=== PATIENT | female | born 1980 | race Caucasian/White ===

== ENCOUNTER → 2020-07-30 13:17 | Outpatient (BNVA) | payer OTHER, SELFPAY | PROVIDERS: PCP Physician Assistant; Referring Provider Physician Assistant; Visit Provider Internal Medicine | DX: E21.3 Hyperparathyroidism, unspecified (principal); E04.2 Nontoxic multinodular goiter; E55.9 Vitamin D deficiency, unspecified; Z79.899 Other long term (current) drug therapy; Z91.14 Patient's other noncompliance with medication regimen | CPT/HCPCS: 99214 ==

== ENCOUNTER 2020-08-02 15:18 | Outpatient (REF) | payer OTHER, SELFPAY ==
[2020-08-02 16:17] LABS: Calcium 9.2 mg/dL (8.4-10.2)
[2020-08-02 16:43] LABS: Free T4 (Free Thyroxine) 0.97 ng/dL (0.71-1.85); Vitamin D 25-OH Total 17.6 ng/mL (>30)
[2020-08-03 20:11] LABS: Calcium (PTHI) 9.2 mg/dL (8.6-10.2); PTHI 83 pg/mL (14-64)
[2020-08-06 10:26] LABS: Calcium, Ionized 5.2 mg/dL (4.8-5.6)
== END 2020-08-02 15:19 | disposition home or self-care (01) ==
LOC: HO.LAB 15:18
PROVIDERS: PCP Physician Assistant; Visit Provider Internal Medicine
DX: E21.3 Hyperparathyroidism, unspecified (principal)
CPT/HCPCS: 82040; 82306; 82310; 82330; 83970; 84439; 84443

== ENCOUNTER 2020-09-06 13:50 | Outpatient (REF) | payer OTHER, SELFPAY ==
--- NOTE | 2020-09-06 13:58 | MM_ITS ---
EXAMINATION: BONE DENSITOMETRY CLINICAL INDICATION: Hyperparathyroidism. COMPARISON: This is the patient's baseline examination. TECHNIQUE: Using a [employer] DXA System (software version: 13.1) manufactured by [employer], dual-energy x-ray absorptiometry was performed of the lumbar spine, left hip, and left forearm radius 33%. The images are of good technical quality. Based on ISCD (International Society for Clinical Densitometry) standards of reporting, Z-scores instead of T-scores are reported in this premenopausal woman. Summary results are attached. FINDINGS: AP SPINE L1-L4: BMD 1.266 g/cm2, T-score 0.7, Z-score -0.4, Z-score within expected range for age. LEFT FEMUR, NECK: BMD 0.942 g/cm2, T-score -0.7, Z-score -1.0, Z-score within expected range for age. LEFT FEMUR, TOTAL: BMD 1.141 g/cm2, T-score 1.1, Z-score 0.5, Z-score within expected range for age. LEFT FOREARM RADIUS 33%: BMD 0.910 g/cm2, T-score 0.4, Z-score 0.4, Z-score within expected range for age. IDENTIFIED RISK FACTORS: Hyperparathyroid, family history (parent hip fracture), hyperthyroid, recurrent falls, rheumatoid arthritis, secondary osteoporosis. HISTORY OF FRACTURE: None listed. MEDICATIONS: Vitamin D. MM/XR DEXA appendicular skeleton IMPRESSION: 1. DIAGNOSIS: Based on the lowest Z-score value of -1.0 in the femoral neck, the patient's bone density is borderline osteopenia the expected range for age. 2. 10-YEAR FRACTURE RISK PREDICTION, FRAX: Major osteoporotic fracture (clinical spine, forearm, hip or shoulder) 5.0%. Hip fracture 0.1%. 3. Treatment Recommendations: NOF guidelines recommend consideration for treatment in postmenopausal women and men age 50 and older presenting with the following: -A hip or vertebral (clinical or morphometric) fracture. -T-score less than or equal to -2.5 at the femoral neck or spine after appropriate evaluation to exclude secondary causes. -Low bone mass at the hip or spine and a 10-year fracture probability by FRAX of greater than or equal to 3% for hip fracture or greater than or equal to 20% for major osteoporotic fracture based on the [place] adapted WHO algorithm. 4. Other Recommendations: All treatment decisions require clinical judgment and consideration of individual patient factors, including patient preferences, comorbidities, previous drug use, risk factors not captured in the FRAX model (e.g. frailty, falls, vitamin D deficiency, increased bone turnover, interval significant decline in bone density) and possible under or overestimation of fracture risk by FRAX. FUTURE SCAN RECOMMENDATION: People with diagnosed cases of osteoporosis or at high risk for fracture should have regular bone mineral density tests. For patients eligible for Medicare, routine testing is allowed once every 2 years. The testing frequency can be increased to one year for patients who have rapidly progressing disease, those who are receiving or discontinuing medical therapy to restore bone mass, or have additional risk factors.
== END 2020-09-06 13:51 | disposition home or self-care (01) ==
LOC: HO.MAMMO 13:50
PROVIDERS: Visit Provider Internal Medicine
DX: E21.3 Hyperparathyroidism, unspecified (principal)
CPT/HCPCS: 77081

== ENCOUNTER 2020-10-04 09:06 | Outpatient (REF) | payer OTHER, SELFPAY ==
--- NOTE | 2020-10-04 10:03 | PM.OP ---
Brief Operative Note Date of Service: 10/04/20 Surgeon: Vanessa Lara, DO This is doctor Vanessa Lara. This is an ultrasound-guided fine-needle aspiration report. Patient name: Sherry Patel : 1980 Date of Examination: 10/04/2020 Referring Physician Is: Indication: Multinodular Thyroid Porcedure: Procedure was explained to the patient. Alternatives, the risk and benefits were discussed. Written consent was obtained. A time-out was also obtained. After sterile preparation, fine-needle aspiration of aRight Upper Pole 1.3 cm thyroid nodule was performed using direct ultrasound guidance to confirm accurate needle placement. Four aspirations were made using 27 gauge needles. Samples were submitted for cytology. One pass was dedicated for [employer] sequencing first front ventilator testing. Fine-needle aspiration of a Right mid pole 2.3 cm thyroid nodule was performed using direct ultrasound guidance to confirm accurate needle placement. Four aspirations were made using 27 gauge needles. Samples were submitted for cytology. One pass was dedicated for [employer] Gene sequencing first front ventilator testing. Fine-needle aspiration of a Left mid pole 1.7 cm thyroid nodule was performed using direct ultrasound guidance to confirm accurate needle placement. Six aspirations were made using 27 gauge needles. Samples were submitted for cytology. One pass was dedicated for [employer] Gene sequencing first front ventilator testing.The patient tolerated the procedure well. Aftercare instructions were provided. Impression: Uncomplicated fine needle aspiration biopsy of a Right upper pole 1.3 cm, Right mid pole 2.3 cm and a Left mid pole 1.7 cm thyroid nodule under ultrasound guideance. Estimated blood loss (mL): 0
[2020-10-04] MEDS: Lidocaine HCl 1 % MPF 5 ML VIAL SUBCUT (11:29)
== END 2020-10-04 09:07 | disposition home or self-care (01) ==
LOC: HO.US 09:06
PROVIDERS: Visit Provider Internal Medicine
DX: E04.2 Nontoxic multinodular goiter (principal)
CPT/HCPCS: 10005; 88172; 88173; 88177

== ENCOUNTER → 2020-10-25 09:46 | Outpatient (BNVA) | payer OTHER, SELFPAY | PROVIDERS: PCP Physician Assistant; Referring Provider Physician Assistant; Visit Provider Internal Medicine | DX: Z76.89 Persons encountering health services in other specified circumstances (principal) ==

== ENCOUNTER 2020-11-07 15:10 | Outpatient (REF) | payer OTHER, SELFPAY ==
[2020-11-08 10:32] LABS: BV Int Neg Control Negative (Negative); BV Int Pos Control Positive (Positive)
[2020-11-08 21:37] LABS: C. trachomatis RNA TMA NOT DETECTED (NOT DETECTED); N. gonorrhoeae RNA TMA NOT DETECTED (NOT DETECTED)
== END 2020-11-07 15:11 | disposition home or self-care (01) ==
LOC: HO.LAB 15:10
PROVIDERS: PCP Physician Assistant; Visit Provider Obstetrics & Gynecology
DX: R10.2 Pelvic and perineal pain (principal); N89.8 Other specified noninflammatory disorders of vagina; R31.29 Other microscopic hematuria
CPT/HCPCS: 81003; 81025; 87086; 87088; 87186; 87480; 87491; 87510; 87591; 87660; 99212

== ENCOUNTER 2020-11-22 13:34 | Outpatient (REF) | payer OTHER, SELFPAY ==
--- NOTE | 2020-11-22 13:40 | US_ITS ---
EXAMINATION: US SOFT TISSUE OF THE NECK CLINICAL INFORMATION: Bilateral neck pain/swelling. COMPARISON: Previous thyroid ultrasound most recent December 2019 and thyroid nodule fine-needle aspiration 1220. TECHNIQUE: Linear transducer grayscale and color Doppler examination of the right and left neck at level of thyroid. FINDINGS: No adenopathy, mass or fluid collection is seen. The thyroid gland is enlarged. There are multiple bilateral thyroid nodules. Dedicated thyroid ultrasound was not performed. US/US soft tiss head and/or neck IMPRESSION: No adenopathy, mass or fluid collection seen. Enlarged thyroid gland with multiple bilateral thyroid nodules. Dedicated thyroid ultrasound was not performed.
--- NOTE | 2020-11-22 13:40 | US_ITS ---
EXAMINATION: ULTRASOUND EXTREMITY NONVASCULAR CLINICAL INFORMATION: Lump in the right forearm. COMPARISON: None TECHNIQUE: Targeted sonographic evaluation in the right forearm at the region of concern. FINDINGS: There is no focal abnormality identified. No fluid collection or mass. US/US extremity nonvascular khan IMPRESSION: There is no focal abnormality seen in the right forearm.
--- NOTE | 2020-11-22 13:40 | US_ITS ---
EXAMINATION: ULTRASOUND EXTREMITY NONVASCULAR CLINICAL INFORMATION: Synovial cyst of the popliteal space of the right knee COMPARISON: None TECHNIQUE: Targeted sonographic evaluation of the right popliteal fossa. FINDINGS: There is no focal abnormality identified. No Camarillo's cyst. US/US extremity nonvascular khan IMPRESSION: No Camarillo's cyst.
--- NOTE | 2020-11-22 13:40 | US_ITS ---
EXAMINATION: ULTRASOUND PELVIC, COMPLETE CLINICAL INFORMATION: Pelvic pain COMPARISON: Pelvic ultrasound 01/04/2020 TECHNIQUE: Transabdominal and transvaginal imaging was performed. Transvaginal imaging was performed for further evaluation of the endometrium and adnexa. FINDINGS: The uterus is anteverted and is of normal size and echogenicity measuring 7.4 x 4.7 x 5.2 cm. The endometrium measures 0.8 cm. There is a small amount of fluid within the endometrium. The previously seen area of hyperechogenicity in the upper endometrium is no longer visualized. There are nabothian cysts. One of the cysts demonstrates internal debris. There is a 0.6 x 0.5 x 0.8 cm cyst in the upper left aspect of the uterus. Both ovaries are of normal size and echogenicity. The right ovary measures 2.8 x 2.3 x 1.5 cm for a volume of 5.1 mL. The left ovary measures 2.7 x 2.2 x 1.9 cm for a volume of 5.9 mL. There is no pelvic free fluid. US/US pelvic complete IMPRESSION: 1. Previously seen possible polyp as seen on the prior ultrasound is not visualized on the current study. 2. 0.8 cm cyst in the left upper aspect of the uterus. 3. Several nabothian cysts in the cervix, one of which is mildly complex and demonstrates internal echogenic debris. 4. Normal appearance of the bilateral ovaries.
== END 2020-11-22 13:35 | disposition home or self-care (01) ==
LOC: HO.US 13:34
PROVIDERS: PCP Physician Assistant; Visit Provider Physician Assistant
DX: R59.1 Generalized enlarged lymph nodes (principal); E04.2 Nontoxic multinodular goiter; R10.2 Pelvic and perineal pain; M71.21 Synovial cyst of popliteal space [Baker], right knee
CPT/HCPCS: 76536; 76830; 76856; 76882

== ENCOUNTER 2020-11-22 15:53 | Emergency (ER) | payer OTHER, SELFPAY ==
[2020-11-22 15:57] VITALS: BP 161/98; PULSE 59; RESP 20; TEMP 37.4; O2SAT 99; BMI 46.3
--- NOTE | 2020-11-22 16:01 | ECG_ITS ---
Test Reason : CP Blood Pressure : / mmHG Vent. Rate : 055 BPM Atrial Rate : 055 BPM P-R Int : 178 ms QRS Dur : 086 ms QT Int : 386 ms P-R-T Axes : 008 -01 008 degrees QTc Int : 369 ms Sinus bradycardia Otherwise normal ECG When compared with ECG of 11-AUG-2019 14:55, Nonspecific T wave abnormality, improved in Anterolateral leads Referred By: Generic ED Physician Electronically Signed By:Eliazar Chairez
--- NOTE | 2020-11-22 16:01 | XR_ITS ---
EXAMINATION: XR CHEST CLINICAL INFORMATION: Chest pain COMPARISON: Chest radiographs 08/11/2019, 11/13/2018 TECHNIQUE: Frontal view of the chest was obtained. FINDINGS: There is no pneumothorax, pleural reaction, airspace consolidation, or effusion. No groundglass opacity. The costophrenic sulci are clear. The heart is normal in size. The hilar and mediastinal contours and visualized bony structures are unremarkable. XR/XR chest 1V IMPRESSION: Unremarkable examination.
[2020-11-22 16:27] LABS: MANUAL DIFF FLAG NO
[2020-11-22 16:30] LABS: Basophils Percent Auto 0.2 % (0-2); Eosinophils Absolute Auto 0.1 X10*3/uL (0.0-0.4); Hematocrit 42.4 % (37-47); Hemoglobin 13.6 g/dl (12.0-16.0); Imm Gran Abs Auto 0.01 X10*3/uL (0.00-0.03); Imm Gran Pct Auto 0.1 % (0.0-0.4); Lymphocytes Absolute Auto 3.5 X10*3/uL (1.2-4.9); Lymphocytes Percent Auto 40.7 % (20-40); Mean Corpuscular HGB Conc 32.1 g/dl (31.0-35.0); Mean Corpuscular Hemoglobin 30.4 pg (27.0-33.0); Mean Corpuscular Volume 94.6 fL (80-98); Mean Platelet Volume 9.4 fL (9.4-12.3); Monocytes Absolute Auto 0.7 X10*3/uL (0.1-1.2); Monocytes Percent Auto 7.6 % (2-11); Neutrophils Absolute Auto 4.3 X10*3/uL (2.0-8.3); Neutrophils Percent Auto 50.4 % (45-73); Platelet Count 298 X10*3/uL (160-400); Red Blood Count 4.48 X10*6/uL (4.20-5.50); Red Cell Distribution Width 12.4 % (11.0-16.0); White Blood Count 8.6 X10*3/uL (4.8-10.8)
[2020-11-22 16:50] LABS: Anion Gap 12 (12-20); Blood Urea Nitrogen 12 mg/dL (9-16); Calcium 9.3 mg/dL (8.4-10.2); Carbon Dioxide 25 mmol/L (22-29); Chloride 106 mmol/L (96-108); Estimated Glomerular Filt Rate > 60; Glucose Random 86 mg/dL (60-115); Potassium 4.4 mmol/l (3.3-5.1); Sodium 139 mmol/L (135-145)
[2020-11-22 16:57] LABS: Troponin-I High Sensitivity < 3.5 ng/L (<3.5-17.0)
== END 2020-11-22 19:31 | disposition left against medical advice (07) ==
PROVIDERS: Emergency Provider Emergency Medicine; PCP Physician Assistant
DX: R07.9 Chest pain, unspecified (principal); E11.9 Type 2 diabetes mellitus without complications; I10 Essential (primary) hypertension
CPT/HCPCS: 36415; 71045; 80048; 84484; 85025; 93005; 99282; 99283

== ENCOUNTER → 2020-12-05 11:38 | Outpatient (BNVA) | payer OTHER, SELFPAY | PROVIDERS: Visit Provider Obstetrics & Gynecology ==

== ENCOUNTER 2021-01-09 14:50 | Outpatient (REF) | payer OTHER, SELFPAY ==
[2021-01-09 15:44] LABS: Albumin Level 4.1 g/dL (3.5-5.0); Calcium 9.9 mg/dL (8.4-10.2); Estimated Glomerular Filt Rate > 60; Phosphorus 3.7 mg/dL (2.7-4.5)
[2021-01-09 16:08] LABS: Free T4 (Free Thyroxine) 0.83 ng/dL (0.71-1.85)
[2021-01-09 16:09] LABS: Thyroid Stimulating Hormone 0.98 uIU/mL (0.32-4.0); Vitamin D 25-OH Total 21.9 ng/mL (>30)
[2021-01-10 10:13] LABS: CT PCR NOT DETECTED (Not Detect.); NG PCR NOT DETECTED (Not Detect.)
[2021-01-10 13:42] LABS: Calcium (PTHI) 10.2 mg/dL (8.6-10.2); PTHI 52 pg/mL (14-64)
== END 2021-01-09 14:51 | disposition home or self-care (01) ==
LOC: HO.LAB 14:50
PROVIDERS: Internal Medicine; Obstetrics & Gynecology; PCP Physician Assistant; Visit Provider Internal Medicine Endocrinology, Diabetes & Metabolism
DX: E21.3 Hyperparathyroidism, unspecified (principal); B37.3 Candidiasis of vulva and vagina; E04.2 Nontoxic multinodular goiter; E55.9 Vitamin D deficiency, unspecified
CPT/HCPCS: 36415; 82040; 82306; 82310; 82565; 83970; 84100; 84439; 84443; 87086; 87491; 87591

== ENCOUNTER → 2021-01-25 10:53 | Outpatient (BNVA) | payer OTHER, SELFPAY | PROVIDERS: PCP Physician Assistant; Visit Provider Internal Medicine ==

== ENCOUNTER 2021-04-17 12:04 | Outpatient (REF) | payer OTHER, SELFPAY ==
--- NOTE | ~2021-04-17 | XR_ITS ---
EXAMINATION: BILATERAL HAND. CLINICAL INFORMATION: Pain right hand. COMPARISON: None TECHNIQUE: 3 views each hand. FINDINGS: Right hand: There is no visible acute fracture, dislocation or subluxation seen. No bony erosive changes. The soft tissues are normal. Left hand: There is no visible acute fracture, dislocation or subluxation seen. No bony erosive changes or loose body seen. The soft tissues are normal. XR/XR hand LT min 3V IMPRESSION: Unremarkable left hand exam.
--- NOTE | ~2021-04-17 | XR_ITS ---
EXAMINATION: BILATERAL HAND. CLINICAL INFORMATION: Pain right hand. COMPARISON: None TECHNIQUE: 3 views each hand. FINDINGS: Right hand: There is no visible acute fracture, dislocation or subluxation seen. No bony erosive changes. The soft tissues are normal. Left hand: There is no visible acute fracture, dislocation or subluxation seen. No bony erosive changes or loose body seen. The soft tissues are normal. XR/XR hand RT min 3V IMPRESSION: Unremarkable left hand exam.
--- NOTE | ~2021-04-17 | US_ITS ---
EXAMINATION: US RETROPERITONEAL LIMITED (RENAL ONLY) CLINICAL INFORMATION: Hypertension. COMPARISON: None TECHNIQUE: Doppler color and grayscale evaluation of the kidneys and renal arteries including waveform spectral analysis. FINDINGS: RIGHT KIDNEY: 12.3 x 4.5 x 6.4 cm (SAG x AP x TRV). The kidney is normal in size, contour, and echogenicity. Renal cortical thickness is normal. No calculi or focal parenchymal lesions. No hydronephrosis. LEFT KIDNEY: 12.1 x 4.9 x 5.9 cm (SAG x AP x TRV). The kidney is normal in size, contour, and echogenicity. Renal cortical thickness is normal. No calculi or focal parenchymal lesions. No hydronephrosis. Mid abdominal aorta is normal in caliber. Peak systolic velocity is normal measuring 68 cm/s. The right proximal renal artery is patent and measures 158 cm/s. The mid right renal artery is not seen. The distal right renal artery is patent and peak systolic velocity is normal measuring 81 cm/s. Right renal artery to aorta ratio is normal measuring 2.3. Resistive indices in the segmental renal arteries in the right kidney are normal measuring 0.6 cm. The right renal vein is patent. Left the left proximal renal artery is patent. Peak systolic velocity measures 123 cm/s. Left mid renal artery is patent with peak systolic velocity measuring 78 cm/s. The left distal renal artery is not visualized. Left renal artery to aorta ratio is normal measuring 1.8. Resistive indices of the segmental renal arteries in the left kidney are normal measuring 0.6-0.7. The left renal artery is patent. US/US renal BI IMPRESSION: Normal-appearing kidneys. The right mid renal artery and left distal renal artery are not well visualized. No evidence of renal artery stenosis is seen.
--- NOTE | ~2021-04-17 | US_ITS ---
EXAMINATION: US RETROPERITONEAL LIMITED (RENAL ONLY) CLINICAL INFORMATION: Hypertension. COMPARISON: None TECHNIQUE: Doppler color and grayscale evaluation of the kidneys and renal arteries including waveform spectral analysis. FINDINGS: RIGHT KIDNEY: 12.3 x 4.5 x 6.4 cm (SAG x AP x TRV). The kidney is normal in size, contour, and echogenicity. Renal cortical thickness is normal. No calculi or focal parenchymal lesions. No hydronephrosis. LEFT KIDNEY: 12.1 x 4.9 x 5.9 cm (SAG x AP x TRV). The kidney is normal in size, contour, and echogenicity. Renal cortical thickness is normal. No calculi or focal parenchymal lesions. No hydronephrosis. Mid abdominal aorta is normal in caliber. Peak systolic velocity is normal measuring 68 cm/s. The right proximal renal artery is patent and measures 158 cm/s. The mid right renal artery is not seen. The distal right renal artery is patent and peak systolic velocity is normal measuring 81 cm/s. Right renal artery to aorta ratio is normal measuring 2.3. Resistive indices in the segmental renal arteries in the right kidney are normal measuring 0.6 cm. The right renal vein is patent. Left the left proximal renal artery is patent. Peak systolic velocity measures 123 cm/s. Left mid renal artery is patent with peak systolic velocity measuring 78 cm/s. The left distal renal artery is not visualized. Left renal artery to aorta ratio is normal measuring 1.8. Resistive indices of the segmental renal arteries in the left kidney are normal measuring 0.6-0.7. The left renal artery is patent. US/US renal doppler IMPRESSION: Normal-appearing kidneys. The right mid renal artery and left distal renal artery are not well visualized. No evidence of renal artery stenosis is seen.
== END 2021-04-17 12:05 | disposition home or self-care (01) ==
LOC: HO.HMGCX 12:04
PROVIDERS: Absent Provider Student in an Organized Health Care Education/Training Program; PCP Physician Assistant; Visit Provider Physician Assistant
DX: M79.641 Pain in right hand (principal); M79.642 Pain in left hand; I10 Essential (primary) hypertension
CPT/HCPCS: 73130; 76775; 93975; 99202

== ENCOUNTER 2021-04-21 12:47 | Emergency (ER) | payer OTHER, SELFPAY ==
--- NOTE | ~2021-04-21 | XR_ITS ---
EXAMINATION: XR SACRUM AND COCCYX CLINICAL INFORMATION: Status post injury. COMPARISON: None TECHNIQUE: 2 views of the sacrum and 2 views of the coccyx were obtained. FINDINGS: There are no fractures. No bone, joint or soft tissue abnormality is demonstrated. XR/XR sacrum coccyx min 2V IMPRESSION: Unremarkable sacrum and coccyx examination.
[2021-04-21 13:15] VITALS: BP 201/122; PULSE 73; RESP 19; TEMP 36.3; O2SAT 100; BMI 45.2
--- NOTE | 2021-04-21 14:01 | ED.BACK ---
HPI - Back Pain/Injury General Chief Complaint: Back Pain/Injury Stated Complaint: TAILBONE INJ Time Seen by Provider: 04/21/21 13:59 Source: patient Mode of arrival: ambulatory Limitations: no limitations History of Present Illness HPI Narrative: 41 y/o female presenting with tailbone pain after she hit a metal object while riding [place] a [place] at [employer] yesterday. She reports going down a simple water slide on a tube and when she got to the bottom her tube got sucked into the metal rack that brings the tubes back up to the top. She had immediate pain in her tailbone that shot up her back to the top of her head. She had trouble getting up and walking around. An ambulance was called but she declined. Overnight she reports the pain worsened and she was unable to find a comfortable position for sleep. Her pain worsens with ambulation and sitting. No numbness or tingling, no weakness in her legs. No incontinence. MD elicited complaint: back pain and back injury Onset (ago): day(s) (1) Timing: constant Severity: severe Pain scale (0-10): 10 Similar Symptoms Previously: No Quality: sharp and aching Location: sacrum Radiation: buttocks Exacerbating factors: movement, sitting upright and walking Relieving factors: immobilization Context: trauma Associated symptoms: difficulty walking Treatments prior to arrival: cold therapy Work related injury: No Related Data Home Medications Medication Instructions Recorded Confirmed losartan 100 mg tablet 100 mg PO BID tab 08/10/20 03/26/21 Previous Rx's Medication Instructions Recorded cholecalciferol (vitamin D3) 125 125 mcg PO DAILY #30 cap 01/10/21 mcg (5,000 unit) capsule blood sugar diagnostic 1 strip MISCELLANEOUS DAILY #50 01/24/21 strip metformin 500 mg tablet 500 mg PO BID 30 Days #60 tab 03/26/21 tizanidine 4 mg tablet 4 mg PO BEDTIME #30 tab 03/26/21 tramadol 50 mg tablet 50 mg PO DAILY 14 Days #14 tab 03/26/21 ProAir HFA 90 mcg/actuation 1 puff PO QID PRN #8.5 g NS 03/30/21 aerosol inhaler metoprolol tartrate 100 mg tablet 100 mg PO BID #180 tab 04/18/21 pantoprazole 20 mg tablet,delayed 20 mg PO DAILY #90 tab 04/18/21 release cyclobenzaprine 10 mg PO TID PRN #8 tab 04/21/21 hydrocodone-acetaminophen 1 tab PO Q8H PRN #6 tab 04/21/21 ibuprofen 600 mg PO Q8H PRN #15 tab 04/21/21 lidocaine [Lidoderm] 1 patch TOPICAL DAILY #15 ea 04/21/21 Allergies Allergy/AdvReac Type Severity Reaction Status Date / Time ketorolac Allergy Unknown rash Verified 04/21/21 13:18 From Toradol Allergy Unknown HIVES Uncoded 01/25/21 11:45 Review of Systems Review of Systems: Constitutional: No Fever, No Chills ENT/Mouth: No sore throat, No Rhinorrhea, No Swallowing Difficulty Eyes: No Eye Pain, No Swelling, No Redness Cardiovascular: No Chest Pain, No SOB, No Orthopnea, No Edema Respiratory: No Cough, No Sputum, No Wheezing, No dyspnea Gastrointestinal: No Nausea, No Vomiting, No Diarrhea, No abdominal Pain, No Hematochezia, No Melena Genitourinary: No Dysuria, No Urinary Frequency, No Hematuria Musculoskeletal: No joint pain, No Myalgias Skin: No Skin Lesions, No rash Neuro: No Weakness, No Numbness, No Dizziness, No Headache Psych: No Anxiety/Panic, No Depression Heme/Lymph: No Bruising, No Lymphadenopathy Endocrine: No Polyuria, No Polydipsia PMFSH Past Medical History Medical History Diabetes Hyperparathyroidism Multinodular thyroid Obesity Vitamin D deficiency Surgical History History of hysteroscopy Hx laparoscopic cholecystectomy Hx of section Hx of tubal ligation Family History Family History Father AIDS Arthritis CVD (cardiovascular disease) Hypertension Stroke Asthma Mother Diabetes Arthritis Hypertension Obesity Heart attack CVD (cardiovascular disease) Asthma Chronic mental illness Maternal Aunt Breast cancer Maternal Aunt Breast cancer Son No problems noted. Daughter No problems noted. Brother No problems noted. Social History Social History (Updated 04/17/21 @ 11:43 by Shahnaz Marino CMA) Alcohol intake: never Patient Tobacco Use Status: Former Tobacco user Cigarettes Per Day: 1 Years Smoked: 3 Advance Directives: Yes Advance Directives on File: Yes Advance Directives Date on File: 04/17/21 Patient : No Sexual orientation: Straight/Heterosexual Gender identity: female Physical Exam Vital Signs: Vital Signs: Last Vital Signs Temp 97.4 F 04/21/21 13:15 Pulse 73 04/21/21 13:15 Resp 19 04/21/21 13:15 BP 201/122 H 04/21/21 13:15 Pulse Ox 100 04/21/21 13:15 Body Mass Index 45.2 Appearance: Alert. Oriented X3. No acute distress. HEENT: normal inspection CVS: Normal heart rate and rhythm. Pulses normal. Respiratory: No respiratory distress. Skin: Skin warm and dry. Normal skin color. Normal skin turgor. No rashes. Back: moderate ecchymosis on the right lateral side below gluteal cleft, tender. Extremities: atraumatic, no LE edema. +DTRs bilaterally. Neuro: Oriented X 3. No motor deficit. No sensory deficit. Slow but steady gait. Course Course Course Narrative: 41 y/o female presenting with coccyx pain s/p blunt injury yesterday. No red flag symptoms of LBP. Ambulates with steady but slow gait. Neurologically intact. Will get XR to assess for fracture. Reevaluation(s) Reevaluation #1: XR negative. Will treat with NSAID, muscle relaxer, Lidoderm and PRN Vicoden for severe pain. Will have her f/u with her PCP this week. Stable for d/c home. Patient agrees with plan. Discharge Plan Discharge Clinical Impression: Coccyx contusion Qualifiers: Encounter type: initial encounter Qualified Code(s): S30.0XXA - Contusion of lower back and pelvis, initial encounter Patient Disposition: Home, Self-Care Instructions: Coccyx Injury (ED) Additional Instructions: Your x-ray was normal. Rest and use ice several times per day. No bending, lifting or twisting. Take medications as prescribed to help with pain and discomfort. Follow up with your Primary Care Doctor this week. If your pain worsens, if you develop new numbness, tingling, weakness, loss of function or incontinence call 911 or come back to the ER right away for evaluation. Prescriptions: New cyclobenzaprine 10 mg tablet 10 mg PO TID PRN (Reason: muscle spasm) Qty: 8 RF: 0 ibuprofen 600 mg tablet 600 mg PO Q8H PRN (Reason: pain) Qty: 15 RF: 0 lidocaine [Lidoderm] 5 % adhesive patch,medicated 1 patch topical DAILY Qty: 15 RF: 0 hydrocodone-acetaminophen 5-325 mg tablet 1 tab PO Q8H PRN (Reason: pain) Qty: 6 RF: 0 No Action cholecalciferol (vitamin D3) 125 mcg (5,000 unit) capsule 125 mcg PO DAILY Qty: 30 RF: 2 blood sugar diagnostic [FreeStyle Lite Strips] Strip 1 strip miscellaneous DAILY Qty: 50 RF: 3 albuterol sulfate [ProAir HFA] 90 mcg/actuation HFA aerosol inhaler 1 puff PO QID PRN (Reason: for dyspnea) Qty: 8.5 RF: 3 pantoprazole 20 mg tablet,delayed release (DR/EC) 20 mg PO DAILY Qty: 90 RF: 1 metoprolol tartrate 100 mg tablet 100 mg PO BID Qty: 180 RF: 1 losartan 100 mg tablet 100 mg PO BID RF: 0 tizanidine 4 mg tablet 4 mg PO BEDTIME Qty: 30 RF: 2 tramadol 50 mg tablet 50 mg PO DAILY 14 Days Qty: 14 RF: 0 metformin 500 mg tablet 500 mg PO BID 30 Days Qty: 60 RF: 3 Stand Alone Forms: Work/School Release
[2021-04-21] MEDS: HYDROcodone Bit/Acetam 5/325 TABLET 1 TAB PO (14:19)
[2021-04-21 15:01] VITALS: RESP 18
== END 2021-04-21 15:02 | disposition home or self-care (01) ==
PROVIDERS: Emergency Provider Internal Medicine; PCP Physician Assistant
DX: S30.0XXA Contusion of lower back and pelvis, initial encounter (principal); E11.9 Type 2 diabetes mellitus without complications; Z79.84 Long term (current) use of oral hypoglycemic drugs; W22.8XXA Striking against or struck by other objects, initial encounter; Y93.18 Activity, surfing, windsurfing and boogie boarding; Y92.831 Amusement park as the place of occurrence of the external cause; Y99.9 Unspecified external cause status
CPT/HCPCS: 72220; 99283

== ENCOUNTER 2021-07-18 13:40 | Outpatient (REF) | payer OTHER, SELFPAY ==
[2021-07-19 02:47] LABS: CT PCR NOT DETECTED (Not Detect.); NG PCR NOT DETECTED (Not Detect.)
== END 2021-07-18 13:41 | disposition home or self-care (01) ==
LOC: HO.LAB 13:40
PROVIDERS: PCP Physician Assistant; Visit Provider Obstetrics & Gynecology
DX: R10.2 Pelvic and perineal pain (principal); Z11.3 Encounter for screening for infections with a predominantly sexual mode of transmission
CPT/HCPCS: 87491; 87591; 99212

== ENCOUNTER 2021-07-24 16:25 | Emergency (ER) | payer MEDICARE, MEDICAID, OTHER, SELFPAY ==
--- NOTE | ~2021-07-24 | CT_ITS ---
EXAMINATION: CT ABDOMEN AND PELVIS WITH CONTRAST CLINICAL INFORMATION: Lower abdominal pain with fever, question etiology COMPARISON: 01/29/2018 TECHNIQUE: Multidetector volumetric images were obtained from the superior aspect of the liver through the pubic symphysis following administration 85 mL of Omnipaque 350 intravenous contrast. Sagittal and coronal reformatted images were obtained on the technologist's workstation. Oral contrast: No This CT examination was performed using dose optimization techniques as appropriate, variously including the following: *Automated exposure control *Adjustment of mA and/or kV according to patient size (this includes techniques or standardized protocols for targeted exams where dose is matched to indication/reason for exam; i.e. extremities or head) *Use of iterative reconstruction technique DLP: 925 mGy-cm FINDINGS: This exam is limited from artifact likely due to patient body habitus LUNG BASES: The visualized lung bases are unremarkable. LIVER, GALLBLADDER, AND BILIARY TREE: The liver is normal in size, shape, and attenuation. No focal hepatic lesion or biliary ductal dilatation is present. Status post cholecystectomy PANCREAS: Unremarkable. SPLEEN: Unremarkable. ADRENAL GLANDS: Unremarkable. KIDNEYS AND URETERS: Nonobstructing 6 mm calculus mid pole right BLADDER: Unremarkable. GASTROINTESTINAL TRACT: The small and large bowel are unremarkable. The appendix is unremarkable. ABDOMINAL WALL: Periumbilical herniation of fat once again seen LYMPH NODES: Normal. VASCULAR: Unremarkable. PELVIC VISCERA: Unremarkable. OSSEOUS STRUCTURES: Unremarkable. CT/CT abdomen pelvis w con IMPRESSION: No acute finding. The bowel pattern is nonobstructing. There is no free fluid. Nonobstructing renal calculus mid pole right.
[2021-07-24 17:05] VITALS: BP 160/89; PULSE 68; RESP 16; TEMP 36.8; O2SAT 96; BMI 44.9
[2021-07-24 17:26] LABS: Appearance Urine CLEAR; Color Urine YELLOW; Glucose Urine UA NEG (NEG); Leukocyte Esterase Urine NEG (NEG); Nitrite Urine NEG (NEG); UACC Culture Trigger NO; Urine Blood TRACE (NEG); Urine Ketones NEG (NEG); Urine Protein NEG (NEG-TRACE)
[2021-07-24 17:32] LABS: RBC Urine 0-2 /HPF (0)
[2021-07-24 17:33] LABS: Bacteria Urine 2+ /LPF; Squamous Epithelial Cell Urine 1+ /LPF
--- NOTE | 2021-07-24 18:17 | ED_ITS ---
HPI - Abdominal Pain General Chief Complaint: Abdominal Pain <Naveed Bear MD - Last Filed: 07/24/21 21:27> Stated Complaint: pelvic pain <Naveed Bear MD - Last Filed: 07/24/21 21:27> Time Seen by Provider: 07/24/21 18:17 <Naveed Bear MD - Last Filed: 07/24/21 21:27> Source: patient <Naveed Bear MD - Last Filed: 07/24/21 21:27> Mode of arrival: ambulatory <Naveed Bear MD - Last Filed: 07/24/21 21:27> Limitations: no limitations <Naveed Bear MD - Last Filed: 07/24/21 21:27> History of Present Illness HPI narrative: PATIENT IS STATUS POST UTERINE ABLATION LAST YEAR SINCE THEN COMPLAINING OF FEVER OFF AND ON LOWER ABDOMINAL PAIN BEEN EVALUATED MULTIPLE TIMES BY AN OBG WITH WORKUP NEGATIVE STD TEST WAS NEGATIVE COMPLAINING OF FEVER 102 CLEAR VAGINAL DISCHARGE NOW PAIN IS GETTING WORSE SEEN HER OB G LAST WEEK ADVISED TO SEE THE ER PHYSICIAN PATIENT VOMITED 4 TIMES TODAY NO CHANGE IN BOWEL MOVEMENTS NO URINARY COMPLAINTS PATIENT ALSO COMPLAINING OF LOW BACK PAIN <Naveed Bear MD - Last Filed: 07/24/21 21:27> Related Data Home Medications: Home Medications Medication Instructions Recorded Confirmed losartan 100 mg tablet 100 mg PO BID tab 08/10/20 04/23/21 Previous Rx's Medication Instructions Recorded blood sugar diagnostic (FreeStyle 1 strip MISCELLANEOUS DAILY #50 01/24/21 Lite Strips) strip ProAir HFA 90 mcg/actuation 1 puff PO QID PRN #8.5 g NS 03/30/21 aerosol inhaler (albuterol sulfate) metoprolol tartrate 100 mg tablet 100 mg PO BID #180 tab 04/18/21 pantoprazole 20 mg tablet,delayed 20 mg PO DAILY #90 tab 04/18/21 release ibuprofen 600 mg tablet 600 mg PO Q8H PRN #15 tab 04/21/21 cholecalciferol (vitamin D3) 125 125 mcg PO DAILY #30 tab 05/27/21 mcg (5,000 unit) tablet (Vitamin D3) tizanidine 4 mg tablet 4 mg PO BEDTIME #30 tab 06/17/21 metformin 500 mg tablet 500 mg PO BID 30 Days #60 tab 07/11/21 tramadol 50 mg tablet 50 mg PO DAILY 14 Days #14 tab 07/11/21 doxycycline monohydrate 100 mg 100 mg PO BID #20 cap 07/24/21 capsule naproxen 500 mg tablet (Naprosyn) 500 mg PO BID #20 tab 07/24/21 ondansetron HCl 4 mg tablet 4 mg PO Q8H PRN #10 tab 07/24/21 (Zofran) <Naveed Bear MD - Last Filed: 07/24/21 21:27> Allergies/Adverse Reactions: Allergies Allergy/AdvReac Type Severity Reaction Status Date / Time ketorolac Allergy Unknown rash Verified 04/23/21 13:07 From Toradol Allergy Unknown HIVES Uncoded 01/25/21 11:45 <Naveed Bear MD - Last Filed: 07/24/21 21:27> Review of Systems Review of Systems Yes all other systems are reviewed and are negative <Naveed Bear MD - Last Filed: 07/24/21 21:27> Physical Exam Vital Signs: Vital Signs: Last Vital Signs Temp 98.6 F 07/24/21 19:03 Pulse 61 07/24/21 19:03 Resp 16 07/24/21 20:45 BP 154/89 H 07/24/21 19:03 Pulse Ox 100 07/24/21 19:03 Body Mass Index 44.9 <Naveed Bear MD - Last Filed: 07/24/21 21:27> Vital Signs: Last Vital Signs Temp 98.6 F 07/24/21 19:03 Pulse 61 07/24/21 19:03 Resp 16 07/24/21 20:45 BP 154/89 H 07/24/21 19:03 Pulse Ox 100 07/24/21 19:03 Body Mass Index 44.9 <Keenan Gamboa MD - Last Filed: 07/24/21 21:28> Appearance: Alert. Oriented X3. No acute distress. Eyes: PERRLA, No Nystagmus ENT: Pharynx normal. Oral Mucosa moist Neck: Normal inspection. Neck supple. CVS: Normal heart rate and rhythm. Pulses normal. Respiratory: No respiratory distress. Equal air entry bilateral, no wheezing/rales/rhonchi Abdomen: Soft diffuse lower abdomen tenderness left more than the right no rebound tenderness or guarding Bowel sounds are present, no mass palpable, no CVA tenderness Skin: Skin warm and dry. Normal skin color. Normal skin turgor. Back: Diffuse tenderness lumbar spine Extremities: No lower extremity edema. No calf tenderness Neuro: Oriented X 3. 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 will start doxycycline and zofran <Keenan Gamboa MD - Last Filed: 07/24/21 21:28> MDM - Abdominal Pain MDM Narrative Medical decision making narrative: Patient's CT scan without any acute pathology patient upset as confined because of chronic pain and the fever patient labs are stable lactic acid normal no signs of infection the body patient afebrile at the time of discharge in c omplaining of pain in the back now demanding answer. Patient pain medication for last 1 year tramadol and oxycodone also taking tizanidine. Patient advised to follow-up with her primary care doctor <Naveed Bear MD - Last Filed: 07/24/21 21:27> Medical Records Attestation: I reviewed the patient's medical records. <Naveed Bear MD - Last Filed: 07/24/21 21:27> Lab Data Attestation: I reviewed the patient's lab results. <Naveed Bear MD - Last Filed: 07/24/21 21:27> Result diagrams: : 07/24/21 19:18 07/24/21 19:18 <Naveed Bear MD - Last Filed: 07/24/21 21:27> Labs: Lab Results 07/24/21 07/24/21 07/24/21 Range/Units 17:14 19:18 19:18 WBC 9.0 (4.8-10.8) X10*3/uL RBC 4.36 (4.20-5.50) X10*6/uL Hgb 13.5 (12.0-16.0) g/dl Hct 40.3 (37-47) % MCV 92.4 (80-98) fL MCH 31.0 (27.0-33.0) pg MCHC 33.5 (31.0-35.0) g/dl RDW 12.0 (11.0-16.0) % Plt Count 274 (160-400) X10*3/uL MPV 9.6 (9.4-12.3) fL Immature Gran % (Auto) 0.2 (0.0-0.4) % Neut % (Auto) 54.3 (45-73) % Lymph % (Auto) 38.2 (20-40) % Kimble % (Auto) 5.8 (2-11) % Eos % (Auto) 1.3 (0-4) % Baso % (Auto) 0.2 (0-2) % Lymph # (Auto) 3.4 (1.2-4.9) X10*3/uL Kimble # (Auto) 0.5 (0.1-1.2) X10*3/uL Eos # (Auto) 0.1 (0.0-0.4) X10*3/uL Baso # (Auto) 0.0 (0.0-0.2) X10*3/uL Abs Immat Gran (auto) 0.02 (0.00-0.03) X10*3/uL Absolute Neuts (auto) 4.9 (2.0-8.3) X10*3/uL Absolute Nucleated RBC 0.000 (0.0-0.012) X10*3/uL Nucleated RBC % (auto) 0.0 (0.0-0.2) /100WBC Sodium 138 (135-145) mmol/L Potassium 4.1 (3.3-5.1) mmol/L Chloride 105 (96-108) mmol/L Carbon Dioxide 25 (22-29) mmol/L Anion Gap 12 (12-20) BUN 8 L (9-16) mg/dL Creatinine 0.81 (0.5-1.4) mg/dL Estim Creat Clear Calc 118.7 Estimated GFR > 60 Random Glucose 90 (60-115) mg/dL Lactic Acid (0.5-2.0) mmol/L Calcium 9.3 D (8.4-10.2) mg/dL Urine Color YELLOW Urine Appearance CLEAR Urine pH 6.0 (5.0-8.0) Ur Specific Theresa 1.020 (1.005-1.025) Urine Protein NEG (NEG-TRACE) MG/DL Urine Glucose (UA) NEG (NEG) MG/DL Urine Ketones NEG (NEG) MG/DL Urine Blood TRACE (NEG) Urine Nitrite NEG (NEG) Ur Leukocyte Esterase NEG (NEG) Urine RBC 0-2 (0) /HPF Urine WBC 1-4 (0-4) /HPF Ur Squamous Epith Cells 1+ /LPF Urine Bacteria 2+ /LPF 07/24/21 Range/Units 19:18 WBC (4.8-10.8) X10*3/uL RBC (4.20-5.50) X10*6/uL Hgb (12.0-16.0) g/dl Hct (37-47) % MCV (80-98) fL MCH (27.0-33.0) pg MCHC (31.0-35.0) g/dl RDW (11.0-16.0) % Plt Count (160-400) X10*3/uL MPV (9.4-12.3) fL Immature Gran % (Auto) (0.0-0.4) % Neut % (Auto) (45-73) % Lymph % (Auto) (20-40) % Kimble % (Auto) (2-11) % Eos % (Auto) (0-4) % Baso % (Auto) (0-2) % Lymph # (Auto) (1.2-4.9) X10*3/uL Kimble # (Auto) (0.1-1.2) X10*3/uL Eos # (Auto) (0.0-0.4) X10*3/uL Baso # (Auto) (0.0-0.2) X10*3/uL Abs Immat Gran (auto) (0.00-0.03) X10*3/uL Absolute Neuts (auto) (2.0-8.3) X10*3/uL Absolute Nucleated RBC (0.0-0.012) X10*3/uL Nucleated RBC % (auto) (0.0-0.2) /100WBC Sodium (135-145) mmol/L Potassium (3.3-5.1) mmol/L Chloride (96-108) mmol/L Carbon Dioxide (22-29) mmol/L Anion Gap (12-20) BUN (9-16) mg/dL Creatinine (0.5-1.4) mg/dL Estim Creat Clear Calc Estimated GFR Random Glucose (60-115) mg/dL Lactic Acid 1.2 (0.5-2.0) mmol/L Calcium (8.4-10.2) mg/dL Urine Color Urine Appearance Urine pH (5.0-8.0) Ur Specific Theresa (1.005-1.025) Urine Protein (NEG-TRACE) MG/DL Urine Glucose (UA) (NEG) MG/DL Urine Ketones (NEG) MG/DL Urine Blood (NEG) Urine Nitrite (NEG) Ur Leukocyte Esterase (NEG) Urine RBC (0) /HPF Urine WBC (0-4) /HPF Ur Squamous Epith Cells /LPF Urine Bacteria /LPF <Naveed Bear MD - Last Filed: 07/24/21 21:27> Lab Results 07/24/21 07/24/21 07/24/21 Range/Units 17:14 19:18 19:18 WBC 9.0 (4.8-10.8) X10*3/uL RBC 4.36 (4.20-5.50) X10*6/uL Hgb 13.5 (12.0-16.0) g/dl Hct 40.3 (37-47) % MCV 92.4 (80-98) fL MCH 31.0 (27.0-33.0) pg MCHC 33.5 (31.0-35.0) g/dl RDW 12.0 (11.0-16.0) % Plt Count 274 (160-400) X10*3/uL MPV 9.6 (9.4-12.3) fL Immature Gran % (Auto) 0.2 (0.0-0.4) % Neut % (Auto) 54.3 (45-73) % Lymph % (Auto) 38.2 (20-40) % Kimble % (Auto) 5.8 (2-11) % Eos % (Auto) 1.3 (0-4) % Baso % (Auto) 0.2 (0-2) % Lymph # (Auto) 3.4 (1.2-4.9) X10*3/uL Kimble # (Auto) 0.5 (0.1-1.2) X10*3/uL Eos # (Auto) 0.1 (0.0-0.4) X10*3/uL Baso # (Auto) 0.0 (0.0-0.2) X10*3/uL Abs Immat Gran (auto) 0.02 (0.00-0.03) X10*3/uL Absolute Neuts (auto) 4.9 (2.0-8.3) X10*3/uL Absolute Nucleated RBC 0.000 (0.0-0.012) X10*3/uL Nucleated RBC % (auto) 0.0 (0.0-0.2) /100WBC Sodium 138 (135-145) mmol/L Potassium 4.1 (3.3-5.1) mmol/L Chloride 105 (96-108) mmol/L Carbon Dioxide 25 (22-29) mmol/L Anion Gap 12 (12-20) BUN 8 L (9-16) mg/dL Creatinine 0.81 (0.5-1.4) mg/dL Estim Creat Clear Calc 118.7 Estimated GFR > 60 Random Glucose 90 (60-115) mg/dL Lactic Acid (0.5-2.0) mmol/L Calcium 9.3 D (8.4-10.2) mg/dL Urine Color YELLOW Urine Appearance CLEAR Urine pH 6.0 (5.0-8.0) Ur Specific Theresa 1.020 (1.005-1.025) Urine Protein NEG (NEG-TRACE) MG/DL Urine Glucose (UA) NEG (NEG) MG/DL Urine Ketones NEG (NEG) MG/DL Urine Blood TRACE (NEG) Urine Nitrite NEG (NEG) Ur Leukocyte Esterase NEG (NEG) Urine RBC 0-2 (0) /HPF Urine WBC 1-4 (0-4) /HPF Ur Squamous Epith Cells 1+ /LPF Urine Bacteria 2+ /LPF 07/24/21 Range/Units 19:18 WBC (4.8-10.8) X10*3/uL RBC (4.20-5.50) X10*6/uL Hgb (12.0-16.0) g/dl Hct (37-47) % MCV (80-98) fL MCH (27.0-33.0) pg MCHC (31.0-35.0) g/dl RDW (11.0-16.0) % Plt Count (160-400) X10*3/uL MPV (9.4-12.3) fL Immature Gran % (Auto) (0.0-0.4) % Neut % (Auto) (45-73) % Lymph % (Auto) (20-40) % Kimble % (Auto) (2-11) % Eos % (Auto) (0-4) % Baso % (Auto) (0-2) % Lymph # (Auto) (1.2-4.9) X10*3/uL Kimble # (Auto) (0.1-1.2) X10*3/uL Eos # (Auto) (0.0-0.4) X10*3/uL Baso # (Auto) (0.0-0.2) X10*3/uL Abs Immat Gran (auto) (0.00-0.03) X10*3/uL Absolute Neuts (auto) (2.0-8.3) X10*3/uL Absolute Nucleated RBC (0.0-0.012) X10*3/uL Nucleated RBC % (auto) (0.0-0.2) /100WBC Sodium (135-145) mmol/L Potassium (3.3-5.1) mmol/L Chloride (96-108) mmol/L Carbon Dioxide (22-29) mmol/L Anion Gap (12-20) BUN (9-16) mg/dL Creatinine (0.5-1.4) mg/dL Estim Creat Clear Calc Estimated GFR Random Glucose (60-115) mg/dL Lactic Acid 1.2 (0.5-2.0) mmol/L Calcium (8.4-10.2) mg/dL Urine Color Urine Appearance Urine pH (5.0-8.0) Ur Specific Theresa (1.005-1.025) Urine Protein (NEG-TRACE) MG/DL Urine Glucose (UA) (NEG) MG/DL Urine Ketones (NEG) MG/DL Urine Blood (NEG) Urine Nitrite (NEG) Ur Leukocyte Esterase (NEG) Urine RBC (0) /HPF Urine WBC (0-4) /HPF Ur Squamous Epith Cells /LPF Urine Bacteria /LPF <Keenan Gamboa MD - Last Filed: 07/24/21 21:28> Discharge Plan Discharge Clinical Impression: Chronic pain Qualifiers: Chronic pain type: chronic pain syndrome Qualified Code(s): G89.4 - Chronic pain syndrome <Naveed Bear MD - Last Filed: 07/24/21 21:27> Patient Disposition: Home, Self-Care <Naveed Bear MD - Last Filed: 07/24/21 21:27> Instructions: Chronic Pain (ED) <Naveed Bear MD - Last Filed: 07/24/21 21:27> Additional Instructions: Follow-up with primary care doctor for chronic pain management CT scan of the abdomen and blood test are negative for any acute pathology Take pain medication and muscle relaxant as prescribed <Naveed Bear MD - Last Filed: 07/24/21 21:27> Prescriptions: New doxycycline monohydrate 100 mg capsule 100 mg PO BID Qty: 20 RF: 0 ondansetron HCl [Zofran] 4 mg tablet 4 mg PO Q8H PRN (Reason: nausea and vomiting) Qty: 10 RF: 0 naproxen [Naprosyn] 500 mg tablet 500 mg PO BID Qty: 20 RF: 0 No Action blood sugar diagnostic [FreeStyle Lite Strips] Strip 1 strip miscellaneous DAILY Qty: 50 RF: 3 albuterol sulfate [ProAir HFA] 90 mcg/actuation HFA aerosol inhaler 1 puff PO QID PRN (Reason: for dyspnea) Qty: 8.5 RF: 3 pantoprazole 20 mg tablet,delayed release (DR/EC) 20 mg PO DAILY Qty: 90 RF: 1 metoprolol tartrate 100 mg tablet 100 mg PO BID Qty: 180 RF: 1 cholecalciferol (vitamin D3) [Vitamin D3] 125 mcg (5,000 unit) tablet 125 mcg PO DAILY Qty: 30 RF: 3 tizanidine 4 mg tablet 4 mg PO BEDTIME Qty: 30 RF: 2 tramadol 50 mg tablet 50 mg PO DAILY 14 Days Qty: 14 RF: 0 metformin 500 mg tablet 500 mg PO BID 30 Days Qty: 60 RF: 3 ibuprofen 600 mg tablet 600 mg PO Q8H PRN (Reason: pain) Qty: 15 RF: 0 losartan 100 mg tablet 100 mg PO BID RF: 0 <Naveed Bear MD - Last Filed: 07/24/21 21:27> [facility] Past Medical History Medical History: Medical History Diabetes Hyperparathyroidism Multinodular thyroid Obesity Vitamin D deficiency <Naveed Bear MD - Last Filed: 07/24/21 21:27> Surgical History: Surgical History History of hysteroscopy Hx laparoscopic cholecystectomy Hx of section Hx of tubal ligation <Naveed Bear MD - Last Filed: 07/24/21 21:27> Family History Family History: Family History Father AIDS Arthritis CVD (cardiovascular disease) Hypertension Stroke Asthma Mother Diabetes Arthritis Hypertension Obesity Heart attack CVD (cardiovascular disease) Asthma Chronic mental illness Maternal Aunt Breast cancer Maternal Aunt Breast cancer Son No problems noted. Daughter No problems noted. Brother No problems noted. <Naveed Bear MD - Last Filed: 07/24/21 21:27> Social History Social History: Social History Housing: House Alcohol intake: never Patient Tobacco Use Status: Former Tobacco user Cigarettes Per Day: 1 Years Smoked: 3 Use of substances other than those prescribed or required for medical reasons: No Advance Directives: No Advance Directives Information Provided: No Advance Directives Date on File: 04/17/21 Patient : No service: No Current occupational status: unemployed Sexual orientation: Straight/Heterosexual Gender identity: Female <Naveed Bear MD - Last Filed: 07/24/21 21:27>
[2021-07-24 19:03] VITALS: BP 154/89; PULSE 61; RESP 16; TEMP 37; O2SAT 100
[2021-07-24] MEDS: ondansetron HCL 4 MG/2 ML VIAL IVPUSH (19:24)
[2021-07-24 19:25] VITALS: RESP 16
[2021-07-24 19:25] LABS: MANUAL DIFF FLAG NO
[2021-07-24] MEDS: Morphine Sulfate 4 MG/ML CARTRIDGE IVPUSH (19:25)
[2021-07-24] MEDS: 0.9 % Sodium Chloride 1,000 ML 999 ML IVCONT (19:27)
[2021-07-24 19:29] LABS: Basophils Percent Auto 0.2 % (0-2); Eosinophils Absolute Auto 0.1 X10*3/uL (0.0-0.4); Eosinophils Percent Auto 1.3 % (0-4); Hematocrit 40.3 % (37-47); Hemoglobin 13.5 g/dl (12.0-16.0); Imm Gran Abs Auto 0.02 X10*3/uL (0.00-0.03); Imm Gran Pct Auto 0.2 % (0.0-0.4); Lymphocytes Absolute Auto 3.4 X10*3/uL (1.2-4.9); Lymphocytes Percent Auto 38.2 % (20-40); Mean Corpuscular HGB Conc 33.5 g/dl (31.0-35.0); Mean Corpuscular Volume 92.4 fL (80-98); Mean Platelet Volume 9.6 fL (9.4-12.3); Monocytes Absolute Auto 0.5 X10*3/uL (0.1-1.2); Monocytes Percent Auto 5.8 % (2-11); Neutrophils Absolute Auto 4.9 X10*3/uL (2.0-8.3); Neutrophils Percent Auto 54.3 % (45-73); Platelet Count 274 X10*3/uL (160-400); Red Blood Count 4.36 X10*6/uL (4.20-5.50)
[2021-07-24 19:37] LABS: Lactic Acid 1.2 mmol/L (0.5-2.0)
[2021-07-24 19:40] LABS: Anion Gap 12 (12-20); Blood Urea Nitrogen 8 mg/dL (9-16); Calcium 9.3 mg/dL (8.4-10.2); Carbon Dioxide 25 mmol/L (22-29); Chloride 105 mmol/L (96-108); Creatinine Clr Calc Pharmacy 118.7; Estimated Glomerular Filt Rate > 60; Glucose Random 90 mg/dL (60-115); Potassium 4.1 mmol/L (3.3-5.1); Sodium 138 mmol/L (135-145)
[2021-07-24] MEDS: iohexoL 350 MG/ML 100 ML INFUS..BTL IV (20:28)
[2021-07-24 20:45] VITALS: RESP 16
[2021-07-24] MEDS: Butalb/Acetamin/Caff 50/325/40 TABLET 1 TAB PO (21:04)
== END 2021-07-24 21:38 | disposition home or self-care (01) ==
PROVIDERS: Emergency Provider Internal Medicine; PCP Physician Assistant
DX: G89.4 Chronic pain syndrome (principal); R50.9 Fever, unspecified; R10.2 Pelvic and perineal pain; F17.210 Nicotine dependence, cigarettes, uncomplicated; Z71.6 Tobacco abuse counseling; Z79.899 Other long term (current) drug therapy
CPT/HCPCS: 36415; 74177; 80048; 81001; 83605; 85025; 87040; 96361; 96374; 96375; 99284; J2270; J2405; Q9967

== ENCOUNTER → 2021-09-24 10:25 | Outpatient (BNVA) | payer MEDICARE, MEDICAID, SELFPAY | PROVIDERS: Visit Provider Obstetrics & Gynecology ==

== ENCOUNTER → 2021-09-24 10:25 | Outpatient (BNVA) | payer MEDICARE, MEDICAID, SELFPAY | PROVIDERS: Visit Provider Obstetrics & Gynecology ==

== ENCOUNTER 2022-01-01 08:04 | Outpatient (REF) | payer MEDICARE, MEDICAID, SELFPAY ==
--- NOTE | ~2022-01-01 | US_ITS ---
EXAMINATION: ULTRASOUND OF THE PELVIS CLINICAL INFORMATION: Pelvic and perineal pain. COMPARISON: CT from 07/24/2021. Ultrasound 11/22/2020 TECHNIQUE: Transabdominal and transvaginal pelvic ultrasound. A transvaginal study was performed in addition to the transabdominal study which did not yield an adequate examination of the uterus and ovaries due to superimposed distended gas-filled loops of bowel. FINDINGS: The uterus is normal in size and appearance, measuring 8.6 x 4.9 x 5.9 cm longitudinally, anteroposteriorly and transversely. The endometrial stripe thickness is normal, measuring 0.8 cm in thickness. Cystic structure in the left uterine body measures 0.9 cm. This is unchanged. The ovaries bilaterally are visualized and appear normal, with the right ovary measuring 3 x 1.7 x 1.7 cm and the left ovary measuring 3.2 x 1.6 x 2.1 cm. No adnexal mass or free fluid collection seen. US/US pelvic and transvaginal IMPRESSION: No suspicious findings. No abnormal endometrial thickening. No adnexal mass.
[2022-01-01 16:09] LABS: CT PCR NOT DETECTED (Not Detect.); NG PCR NOT DETECTED (Not Detect.)
== END 2022-01-01 08:05 | disposition home or self-care (01) ==
LOC: HO.LAB 08:04
PROVIDERS: PCP Physician Assistant; Visit Provider Obstetrics & Gynecology
DX: R10.2 Pelvic and perineal pain (principal); R31.29 Other microscopic hematuria
CPT/HCPCS: 76830; 76856; 81003; 81025; 87086; 87088; 87186; 87491; 87591; 99212

== ENCOUNTER → 2022-01-22 12:43 | Outpatient (BNVA) | payer MEDICARE, MEDICAID, SELFPAY | PROVIDERS: PCP Physician Assistant; Visit Provider Obstetrics & Gynecology | DX: Z13.89 Encounter for screening for other disorder (principal) ==

== ENCOUNTER 2022-10-10 07:41 | Outpatient (REF) | payer MEDICARE, MEDICAID, SELFPAY | END 2022-10-10 07:42 | disposition home or self-care (01) | LOC: HO.HOSX 07:41 | PROVIDERS: Visit Provider Physician Assistant | DX: Z13.89 Encounter for screening for other disorder (principal) ==

== ENCOUNTER 2022-10-24 12:28 | Outpatient (REF) | payer MEDICARE, MEDICAID, SELFPAY ==
--- NOTE | ~2022-10-24 | XR_ITS ---
EXAMINATION: XR KNEE, RIGHT XR KNEE AP STANDING CLINICAL INFORMATION: Pain. COMPARISON: Radiographs dated 11/10/2013. TECHNIQUE: Lateral and axial views of the right knee are submitted. AP bilateral standing view of the knees was obtained. FINDINGS: Bony alignment and mineralization are normal. The right lateral, medial and patellofemoral joint space compartments are well-maintained. There is slight peripheral osteophyte formation of the medial joint space compartment. There is very mild circumferential peripheral osteophyte formation of the articular surface of the right patella. No fracture or dislocation is seen. There is a small right knee joint effusion. There is no foreign body. The lateral and medial joint space compartments of the left knee are well-maintained. No significant varus or valgus configuration is seen bilaterally. XR/XR knee RT 2V IMPRESSION: 1. There is very mild osteoarthritic change of the right medial and patellofemoral compartments. 2. There is a [id number] right knee joint effusion. 3. No unusual degenerative change is seen of the left knee. 3. No varus or valgus configuration is seen bilaterally.
--- NOTE | ~2022-10-24 | XR_ITS ---
EXAMINATION: XR KNEE, RIGHT XR KNEE AP STANDING CLINICAL INFORMATION: Pain. COMPARISON: Radiographs dated 11/10/2013. TECHNIQUE: Lateral and axial views of the right knee are submitted. AP bilateral standing view of the knees was obtained. FINDINGS: Bony alignment and mineralization are normal. The right lateral, medial and patellofemoral joint space compartments are well-maintained. There is slight peripheral osteophyte formation of the medial joint space compartment. There is very mild circumferential peripheral osteophyte formation of the articular surface of the right patella. No fracture or dislocation is seen. There is a small right knee joint effusion. There is no foreign body. The lateral and medial joint space compartments of the left knee are well-maintained. No significant varus or valgus configuration is seen bilaterally. XR/XR knee standing BI IMPRESSION: 1. There is very mild osteoarthritic change of the right medial and patellofemoral compartments. 2. There is a klltx-[id number] right knee joint effusion. 3. No unusual degenerative change is seen of the left knee. 3. No varus or valgus configuration is seen bilaterally.
== END 2022-10-24 12:29 | disposition home or self-care (01) ==
LOC: HO.HOSX 12:28
PROVIDERS: Visit Provider Physician Assistant
DX: M17.11 Unilateral primary osteoarthritis, right knee (principal); E11.9 Type 2 diabetes mellitus without complications
CPT/HCPCS: 20610; 73560; 73565; 99202; J1020

== ENCOUNTER → 2022-11-11 11:12 | Outpatient (BNVA) | payer MEDICARE, MEDICAID, SELFPAY | PROVIDERS: PCP Physician Assistant; Visit Provider Physician Assistant | DX: M17.11 Unilateral primary osteoarthritis, right knee (principal); E11.9 Type 2 diabetes mellitus without complications | CPT/HCPCS: 99212 ==

== ENCOUNTER 2023-09-15 13:42 | Emergency (ER) | payer MEDICARE, MEDICAID, SELFPAY ==
--- NOTE | ~2023-09-15 | CT_ITS ---
EXAMINATION: CT ABDOMEN AND PELVIS WITH CONTRAST CLINICAL INFORMATION: LLQ pain COMPARISON: Prior studies including the pelvic ultrasound from earlier today and the 07/24/2021 CT scan TECHNIQUE: Multidetector volumetric imaging was performed from the superior aspect of the liver through the pubic symphysis following administration of 85 mL Omnipaque 300 intravenous contrast. Sagittal and coronal reformatted images were obtained on the technologist workstation.. This CT examination was performed using dose optimization techniques as appropriate, variously including the following: *Automated exposure control *Adjustment of mA and/or kV according to patient size (this includes techniques or standardized protocols for targeted exams where dose is matched to indication/reason for exam; i.e. extremities or head) *Use of iterative reconstruction technique DLP: 897 mGy-cm FINDINGS: LUNG BASES: The visualized lung bases are unremarkable. LIVER, GALLBLADDER, AND BILIARY TREE: Diffuse fatty infiltration of the liver but no focal hepatic lesion nor biliary ductal dilatation gallbladder surgically absent. PANCREAS: Unremarkable. SPLEEN: Unremarkable. ADRENAL GLANDS: Unremarkable. KIDNEYS AND URETERS: The kidneys are normal in size, shape, and attenuation. No hydronephrosis or hydroureter. Tiny punctate nonobstructing calculi left kidney incidentally noted. No perinephric stranding. BLADDER: Unremarkable. GASTROINTESTINAL TRACT: No colonic wall thickening or pericolonic inflammatory changes. Cecum is somewhat redundant projecting over the left lower quadrant. Unremarkable appendix overlying the mid abdomen ABDOMINAL WALL: No significant hernia is appreciated. LYMPHOVASCULAR STRUCTURES: No lymphadenopathy. The aorta is unremarkable. PELVIC VISCERA: Uterus is anteroverted. There is a complex 2.2 cm collection within the fundal portion of the endometrial cavity. By report patient has had a history of prior endometrial ablation. In this setting, focal hematometra would be suspected. I am unable to delineate a dilated fallopian tubes which would make diagnosis of postablation tubal sterilization syndrome difficult. Clinical correlation with any history of tubal sterilization may be helpful. If there is persistent clinical concern, pelvic MRI may be needed to better delineate this appearance OSSEOUS STRUCTURES: Unremarkable. CT/CT abdomen pelvis w IV con IMPRESSION: Abnormal appearance to the uterus. There is a 2.2 cm complex collection within the fundal portion of the endometrial cavity. By report patient has had a history of prior endometrial ablation. In this setting, focal hematometra would be suspected. I am unable to delineate a dilated Fallopian tube which would make diagnosis of postablation tubal sterilization syndrome difficult. If there is persistent clinical concern, pelvic MRI may be needed to better delineate this appearance.
--- NOTE | ~2023-09-15 | US_ITS ---
EXAMINATION: US PELVIS CLINICAL INFORMATION: Pelvic pain. Endometrial ablation 3 years ago. COMPARISON: None available. TECHNIQUE: Ultrasound of the pelvis is performed using both transabdominal and transvaginal transducers along with Doppler. Transvaginal imaging is performed due to inadequate visualization transabdominally. FINDINGS: Uterus: The uterus is anteverted, anteflexed and measures 9.3 x 4.8 x 6.6 cm. There is a complex endometrial fluid collection limiting measurement of endometrial thickness. The fluid measures 2.2 x 2.3 x 2.3 cm. There are echogenic calcifications visualized in the endometrium. There are small nabothian cysts in the cervix. The uterus is smooth in contour and has normal myometrial echogenicity. No visible fibroid. Adnexa: Both ovaries are visualized. There is normal color flow to the adnexa. There is no ovarian torsion. There is no pelvic ascites or fluid collection. Right ovary measures 2.8 x 1.7 x 1.6 cm. Volume 4.0 mL. It appears unremarkable. Previously it measured 3.0 x 1.7 x 1.7). Left ovary measures 2.4 x 1.5 x 1.9 cm. Volume 3.6 mL. It appears unremarkable. Previously ovary measured 3.2 x 1.6 x 2.1 cm. There is minimal free fluid in pelvis. US/US pelvic and transvaginal IMPRESSION: 1. Complex fluid collection in the fundal endometrial canal with echogenic calcifications. 2. The ovaries are unremarkable. 3. There is minimal free fluid in the lower pelvis.
[2023-09-15 14:29] VITALS: BP 185/122; PULSE 72; RESP 18; TEMP 36.4; O2SAT 97; BMI 34.7
--- NOTE | 2023-09-15 14:29 | ED_ITS ---
HPI - Abdominal Pain General Chief Complaint: Abdominal Pain Stated Complaint: LLQ pain radiating to back Time Seen by Provider: 09/15/23 16:07 Source: patient Mode of arrival: ambulatory Limitations: no limitations History of Present Illness HPI narrative: This is a 43-year-old female history of obesity, hypertension, diabetes, hyperparathyroidism, major depression, recurrent pelvic pain presenting to the emergency department with left lower quadrant pain forever , acutely worsening over the past few days. Patient reports associated nausea, vomiting, chills and fevers. Patient reports this pain is intolerable 10/10 at times radiates to her flank region. She reports she is peeing and pooping without difficulty. No history of diverticulitis or kidney stones. Patient reports she has a history of tubal ligation ahile ago therefore does not think she is . She did speak to her OBGYN prior to coming who wanted her to come in for evaluation. No hx of trauma. No vaginal bleeding Related Data Previous Rx's Medication Instructions Recorded blood sugar diagnostic (FreeStyle 1 strip miscellaneous DAILY #50 01/24/21 Lite Strips) strips cholecalciferol (vitamin D3) 125 125 mcg PO DAILY #30 tabs 05/27/21 mcg (5,000 unit) tablet (Vitamin D3) ProAir HFA 90 mcg/actuation 1 puff PO QID PRN for dyspnea #8.5 08/26/21 aerosol inhaler (albuterol sulfate) grams metoprolol tartrate 100 mg tablet 100 mg PO BID #180 tabs 10/22/22 flash glucose scanning reader #1 ea 10/28/22 (FreeStyle Magdalena 2 Sandwich) flash glucose sensor (FreeStyle #1 ea 10/28/22 Magdalena 2 Sensor kit) celecoxib 200 mg capsule (Celebrex) 200 mg PO BID 30 days #60 caps 11/13/22 pantoprazole 20 mg tablet,delayed 20 mg PO DAILY #90 tabs 12/28/22 release doxycycline monohydrate 100 mg 100 mg PO BID 7 days #14 caps 02/09/23 capsule lorazepam 0.5 mg tablet 0.5 mg PO DAILY anxiety 2 days #2 03/11/23 tabs ondansetron HCl 4 mg tablet 4 mg PO Q8H PRN nausea and 03/11/23 vomiting #10 tabs tramadol 50 mg tablet 50 mg PO Q8H 7 days #21 tabs 11/01/23 metformin 500 mg tablet 500 mg PO BID 90 days #180 tabs 09/10/23 tizanidine 4 mg tablet 4 mg PO BEDTIME muscle spasticity 09/14/23 30 days #30 tabs diclofenac sodium 75 mg 75 mg PO BID PRN for pain #60 tabs 09/15/23 tablet,delayed release morphine 15 mg immediate release 15 mg PO Q6H PRN pain 5 days #10 09/15/23 tablet tabs ondansetron 4 mg disintegrating 4 mg PO Q6H PRN nausea and 09/15/23 tablet vomiting #14 tabs Allergies Allergy/AdvReac Type Severity Reaction Status Date / Time ketorolac Allergy Unknown rash Verified 09/15/23 14:29 From Toradol Allergy Unknown HIVES Uncoded 09/15/23 14:29 Review of Systems Review of Systems Constitutional : No Weight loss, + Fever, + Chills, + Fatigue, + Malaise ENT/Mouth : No sore throat, No Rhinorrhea Eyes: No Eye Pain, No Swelling, No Redness Cardiovascular : No Chest Pain, No SOB, No Dyspnea on Exertion, No Orthopnea, No Edema, No Palpitations Respiratory : No Cough, No Sputum, No Wheezing Gastrointestinal : + Nausea, + Vomiting, No Diarrhea, No Constipation, + abdominal Pain, No Hematochezia, No Melena Genitourinary : No Dysuria, No Urinary Frequency, No Hematuria, Musculoskeletal : No joint pain, No Myalgias, No Joint Swelling Skin : No Skin Lesions, No rash Neuro : No Weakness, No Numbness, No Dizziness, No Headache Psych : No Anxiety/Panic, No Depression All other systems reviewed and are negative Yes all other systems are reviewed and are negative [facility] Past Medical History Attestation statement: The following information was validated with the patient. Source: old records reviewed and nursing notes reviewed Medical History Diabetes Hyperparathyroidism Multinodular thyroid Obesity Vitamin D deficiency Surgical History History of hysteroscopy Hx laparoscopic cholecystectomy Hx of section Hx of tubal ligation Family History Family History Father AIDS Arthritis CVD (cardiovascular disease) Hypertension Stroke Asthma Mother Diabetes Arthritis Hypertension Obesity Heart attack CVD (cardiovascular disease) Asthma Chronic mental illness Maternal Aunt Breast cancer Maternal Aunt Breast cancer Son No problems noted. Daughter No problems noted. Brother No problems noted. Social History Housing: House Alcohol intake: never Patient Tobacco Use Status: Former Tobacco user Cigarettes Per Day: 1 Years Smoked: 3 Advance Directives: Yes Advance Directives on File: Yes Advance Directives Date on File: 04/17/21 service: No Current occupational status: unemployed Current occupation: right hand dominant Sexual orientation: Straight/Heterosexual Gender identity: Female Physical Exam ED Vital Signs: Vital Signs - 24 hr 09/15/23 14:29 09/15/23 18:21 09/15/23 21:26 Temperature 97.5 F 98.3 F Pulse Rate 72 56 59 Respiratory Rate 18 16 18 Blood Pressure 185/122 H 131/70 140/103 H Pulse Oximetry 97 97 97 Oxygen Delivery Method Room Air Room Air Room Air BMI result Body Mass Index 34.7 Hypertension likely secondary to pain Appearance: Alert.? Oriented X3.? No acute distress.? Head: Normocephalic, atraumatic, no step-offs or deformities Eyes: Pupils equal, round and reactive to light.? Neck: Normal inspection.? Neck supple.? CVS: Normal heart rate and rhythm.? Pulses normal.? Respiratory: No respiratory distress.? Breath sounds normal.? Abdomen: Soft and nontender.? Skin: Skin warm and dry.? Normal skin color.? Normal skin turgor.? Extremities: No lower extremity edema.? No calf ttp. 5/5 strength to bilateral upper and lower extremities Neuro: Oriented X 3.? No motor deficit.? No sensory deficit. CN 2-12 intact Course Course Course Narrative: This is an RME: Additional HPI, ROS, PE not included below will be deferred to primary provider. This is a [id number]-female presenting to the emergency department with a complaint of pelvic pain x months, worsening this morning. Has had ongoing cramps since ablation 2 years ago. Patient states that she has had intermittent severe pelvic pain however this worsened this morning. This woke her up out of sleep this morning at 4:00 a.m.. She does report that she had abnormal uterine bleeding this morning. Endorsing nausea, vomiting, subjective fevers and chills. Plan: Labs, UA, ultrasound Reevaluation(s) Reevaluation #1: Patient has slight leukocytosis 11.4 without a shift. Chemistry unremarkable no acute findings requiring intervention. Ultrasound showing complex fluid collection the fundal endometrial canal with echogenic calcifications the ovaries are unremarkable minimal free fluid in the lower pelvis. No signs of torsion. CT abdomen pending. Urine pending. Time: 18:38 Reevaluation #2: Urine still pending CT of the abdomen pending. Patient states her pain is now down to a 4/10, she is ambulating without difficulty, well appearing. I did educate her on her ultrasound findings, patient reports she has not mother at home was dementia she has to care for and children. Patient is requesting to leave work her CT abdomen results. At this time patient to be discharged home she educated to return with new or worsening symptoms. Patient understands risks of leaving without imaging resulting and urine. Will call if anything is significantly wrong peer advised to follow-up with PCP and OBGYN. Time: 22:33 Reevaluation #3: Patient's CT abdomen with abnormal appearance of the uterus at 2.2 cm complex collection within the fundal portion of the endometrial cavity, this is also seen on ultrasound. Patient with history of prior endometrial ablation this was done a while ago per patient, focal hematometra upper history and physical exam not suspicious for this. Advise OBGYN follow-up regardless. This result was dicussed w/ my attending obgyn follow up as long as not acutely bleeding which she wasnt Medical Decision Making Medical Decision Making [facility] Narrative: 165 43-year-old female presents with severe left lower quadrant pain told to come in today by OBGYN has associated fevers, chills, nausea and vomiting. Physical examination left lower quadrant tenderness to palpation left-sided CVA tenderness. Patient appears uncomfortable. Hypertensive likely secondary to pain. History and physical exam concerning for possible ovarian cyst, less likely ovarian torsion as this has been going on for a long time, unlikely ectopic . Will rule out diverticulitis, obstructing uropathy, UTI. No signs of acute abdomen, mesenteric ischemia, obstruction, pancreatitis, appendicitis, cholecystitis. Other differentials include musculoskeletal pain plan at this time labs, imaging, urine. Will give morphine and Zofran for pain control Differential Diagnosis Differential Diagnoses: The differential diagnosis associated with the presentation includes History and physical exam concerning for possible ovarian cyst, less likely ovarian torsion as this has been going on for a long time, unlikely ectopic . Will rule out diverticulitis, obstructing uropathy, UTI. No signs of acute abdomen, mesenteric ischemia, obstruction, pancreatitis, appendicitis, cholecystitis. Other differentials include musculoskeletal pain Admission/Observation Consideration of admission/observation: Escalation of care including admission/observation considered possible Lab Data MDM Lab Attestation statement: I reviewed the patient's lab results. 09/15/23 14:52 09/15/23 14:52 Labs: Lab Results 09/15/23 09/15/23 Range/Units 14:52 21:34 WBC 11.4 H (4.8-10.8) X10*3/uL RBC 4.85 (4.20-5.50) X10*6/uL Hgb 14.7 (12.0-16.0) g/dl Hct 43.6 (37.0-47.0) % MCV 89.9 (80.0-98.0) fL MCH 30.3 (27.0-33.0) pg MCHC 33.7 (31.0-35.0) g/dl RDW 12.9 (11.0-16.0) % Plt Count 293 (160-400) X10*3/uL MPV 9.3 L (9.4-12.3) fL Immature Gran % (Auto) 0.4 (0.0-0.4) % Neut % (Auto) 55.3 (45-73) % Lymph % (Auto) 34.2 (20-40) % Howard % (Auto) 8.5 (2-11) % Eos % (Auto) 1.3 (0-4) % Baso % (Auto) 0.3 (0-2) % Lymph # (Auto) 3.9 (1.2-4.9) X10*3/uL Howard # (Auto) 1.0 (0.1-1.2) X10*3/uL Eos # (Auto) 0.2 (0.0-0.4) X10*3/uL Baso # (Auto) 0.0 (0.0-0.2) X10*3/uL Abs Immat Gran (auto) 0.04 H (0.00-0.03) X10*3/uL Absolute Neuts (auto) 6.3 (2.0-8.3) x10*3/uL Absolute Nucleated RBC 0.000 (0.0-0.012) X10*3/uL Nucleated RBC % (auto) 0.0 (0.0-0.2) /100WBC Sodium 137 (135-145) mmol/L Potassium 3.7 (3.3-5.1) mmol/L Chloride 108 (96-108) mmol/L Carbon Dioxide 24 (22-29) mmol/L Anion Gap 9 L (12-20) BUN 10 (9-16) mg/dL Creatinine 0.80 (0.5-1.4) mg/dL Estim Creat Clear Calc 105.7 Estimated GFR > 60 POC Glucose 88 (60-115) mg/dL Random Glucose 124 H (60-115) mg/dL Calcium 9.5 (8.4-10.2) mg/dL Total Bilirubin 0.3 (0.0-1.0) mg/dL Direct Bilirubin 0.1 (0.0-0.5) mg/dL AST 12 (5-31) U/L ALT 12 (0-31) U/L Alkaline Phosphatase 67 (39-117) U/L Total Protein 7.8 (6.5-8.0) g/dL Albumin 4.1 (3.5-5.0) g/dL Beta HCG, Quant < 2 mIU/mL Independent Interpretation I performed an independent interpretation of an: Ultrasound ( US/US pelvic and transvaginal IMPRESSION: 1. Complex fluid collection in the fundal endometrial canal with echogenic calcifications. 2. The ovaries are unremarkable. 3. There is minimal free fluid in the lower pelvis.Adnexa: Both ovaries are visualized. There is normal color flow to the adnexa.) and CT Scan Radiology Impression Discussion of test interpretation with radiology: I have reviewed the radiologist's reading. Chronic Conditions Patient?s care impacted by: Other ( depression, obesity, asthma, diabetes, hypertension, hyperparathyroid) Medications Administered Discontinued Medications Generic Name Dose Route Start Last Admin Trade Name Freq PRN Reason Stop Dose Admin Acetaminophen 975 mg 09/15/23 18:36 09/15/23 19:01 Acetaminophen 325 Mg Tablet PO 09/15/23 18:37 975 mg ONCE ONE Administration Iohexol 100 ml 09/15/23 21:50 09/15/23 21:51 Iohexol 350 Mg/Ml 100 Ml Infus..Btl IV 09/15/23 21:51 85 ml ONCE ONE Administration Morphine Sulfate 4 mg 09/15/23 16:18 09/15/23 16:28 Morphine Sulfate 4 Mg/Ml Cartridge IVPUSH 09/15/23 16:19 4 mg ONCE ONE Administration Protocol Morphine Sulfate 2 mg 09/15/23 19:28 09/15/23 19:48 Morphine Sulfate 2 Mg/Ml Cartridge IVPUSH 09/15/23 19:29 2 mg ONCE ONE Administration Protocol Ondansetron HCl 4 mg 09/15/23 16:18 09/15/23 16:28 Ondansetron Hcl 4 Mg/2 Ml Vial IVPUSH 09/15/23 16:19 4 mg ONCE ONE Administration Discharge Plan Discharge Clinical Impression: Abdominal pain, RLQ, Nausea Patient Disposition: Home, Self-Care Instructions: Acute Nausea and Vomiting (ED), Abdominal Pain (ED) Additional Instructions: Take your medications as prescribed. If you were prescribed antibiotics today, it is important that you take your medication to their entirety, do not skip any doses, do not finish them early. Follow-up with your primary care provider this week. Return to the emergency department with new or worsening symptoms. Such as fevers, chills, chest pain, shortness of breath, nausea, vomiting, dizziness, headache, vision changes, lethargy In case of emergency call 911 A narcotic has been sent to your pharmacy please take this as prescribed. Do not take more than the prescribed dose. Narcotic medications can cause addiction. Please do not mix them with alcohol. Do not take them while driving or operating machinery. Do not take them with any other narcotics. Do not share them with friends or family. They can cause constipation. Take them only for severe pain. Prescriptions: New morphine 15 mg tablet 15 mg PO Q6H PRN (Reason: pain) 5 Days Qty: 10 0RF Rx Instructions: Partial Fill upon patient request. ondansetron 4 mg tablet,disintegrating 4 mg PO Q6H PRN (Reason: nausea and vomiting) Qty: 14 0RF No Action blood sugar diagnostic [FreeStyle Lite Strips] Strip 1 strip miscellaneous DAILY Qty: 50 3RF cholecalciferol (vitamin D3) [Vitamin D3] 125 mcg (5,000 unit) tablet 125 mcg PO DAILY Qty: 30 3RF albuterol sulfate [ProAir HFA] 90 mcg/actuation HFA aerosol inhaler 1 puff PO QID PRN (Reason: for dyspnea) Qty: 8.5 3RF metoprolol tartrate 100 mg tablet 100 mg PO BID Qty: 180 1RF (DME) FreeStyle Magdalena 2 Sandwich Misc See Rx Instructions .Route Qty: 1 3RF Rx Instructions: As directed (DME) FreeStyle Magdalena 2 Sensor Kit See Rx Instructions .Route Qty: 1 3RF Rx Instructions: As directed celecoxib [Celebrex] 200 mg capsule 200 mg PO BID 30 Days Qty: 60 0RF pantoprazole 20 mg tablet,delayed release (DR/EC) 20 mg PO DAILY Qty: 90 2RF doxycycline monohydrate 100 mg capsule 100 mg PO BID 7 Days Qty: 14 0RF lorazepam 0.5 mg tablet 0.5 mg PO DAILY 2 Days Qty: 2 0RF Rx Instructions: To take 1 hour before flight ondansetron HCl 4 mg tablet 4 mg PO Q8H PRN (Reason: nausea and vomiting) Qty: 10 0RF tramadol 50 mg tablet 50 mg PO Q8H 7 Days Qty: 21 0RF metformin 500 mg tablet 500 mg PO BID 90 Days Qty: 180 0RF tizanidine 4 mg tablet 4 mg PO BEDTIME 30 Days Qty: 30 3RF diclofenac sodium 75 mg tablet,delayed release (DR/EC) 75 mg PO BID PRN (Reason: for pain) Qty: 60 0RF Referrals: Nelson Palomino MD [Physician] - 1 week Stand Alone Forms: Work/School Release Interventions: ED Discharge Assessment Last Done: 09/15/23 22:38 Discharge Date/Time: 09/15/23 22:39
[2023-09-15 14:55] LABS: MANUAL DIFF FLAG NO
[2023-09-15 15:03] LABS: Basophils Percent Auto 0.3 % (0-2); Eosinophils Absolute Auto 0.2 X10*3/uL (0.0-0.4); Eosinophils Percent Auto 1.3 % (0-4); Hematocrit 43.6 % (37.0-47.0); Hemoglobin 14.7 g/dl (12.0-16.0); Imm Gran Abs Auto 0.04 X10*3/uL (0.00-0.03); Imm Gran Pct Auto 0.4 % (0.0-0.4); Lymphocytes Absolute Auto 3.9 X10*3/uL (1.2-4.9); Lymphocytes Percent Auto 34.2 % (20-40); Mean Corpuscular HGB Conc 33.7 g/dl (31.0-35.0); Mean Corpuscular Hemoglobin 30.3 pg (27.0-33.0); Mean Corpuscular Volume 89.9 fL (80.0-98.0); Mean Platelet Volume 9.3 fL (9.4-12.3); Monocytes Percent Auto 8.5 % (2-11); Neutrophils Absolute Auto 6.3 x10*3/uL (2.0-8.3); Neutrophils Percent Auto 55.3 % (45-73); Platelet Count 293 X10*3/uL (160-400); Red Blood Count 4.85 X10*6/uL (4.20-5.50); Red Cell Distribution Width 12.9 % (11.0-16.0); White Blood Count 11.4 X10*3/uL (4.8-10.8)
[2023-09-15 15:13] LABS: Alanine Aminotransferase 12 U/L (0-31); Albumin Level 4.1 g/dL (3.5-5.0); Alkaline Phosphatase 67 U/L (39-117); Anion Gap 9 (12-20); Aspartate Amino Transferase 12 U/L (5-31); Bilirubin Direct 0.1 mg/dL (0.0-0.5); Bilirubin Total 0.3 mg/dL (0.0-1.0); Blood Urea Nitrogen 10 mg/dL (9-16); Calcium 9.5 mg/dL (8.4-10.2); Carbon Dioxide 24 mmol/L (22-29); Chloride 108 mmol/L (96-108); Creatinine Clr Calc Pharmacy 105.7; Estimated Glomerular Filt Rate > 60; Glucose Random 124 mg/dL (60-115); Potassium 3.7 mmol/L (3.3-5.1); Sodium 137 mmol/L (135-145); Total Protein 7.8 g/dL (6.5-8.0)
[2023-09-15] MEDS: ondansetron HCL 4 MG/2 ML VIAL IVPUSH (16:28)
[2023-09-15] MEDS: Morphine Sulfate 4 MG/ML CARTRIDGE IVPUSH (16:28)
--- NOTE | 2023-09-15 16:33 | PC.NURSE ---
patient unable to get comfortable on stretcher, sitting in chair in room, tearful from the pain. awaiting results from ultrasound at this time, medicated per the MAR. call bentley within reach
[2023-09-15 18:21] VITALS: BP 131/70; PULSE 56; RESP 16; TEMP 36.8; O2SAT 97
--- NOTE | 2023-09-15 18:23 | PC.NURSE ---
patient appears more comfortable at this time, still reporting pain however does report she feels improvement with the pain medications. unable to provide urine sample at this time, aware that we do need a urine sample and states she will try again. call bentley within reach
[2023-09-15] MEDS: Acetaminophen 325 MG TABLET 975 MG PO (19:01)
[2023-09-15] MEDS: Morphine Sulfate 2 MG/ML CARTRIDGE IVPUSH (19:48)
[2023-09-15 21:26] VITALS: BP 140/103; PULSE 59; RESP 18; O2SAT 97
[2023-09-15 21:27] LABS: HCG Quantitative < 2 mIU/mL
[2023-09-15 21:39] LABS: Glucose, Whole Blood 88 mg/dL (60-115)
[2023-09-15] MEDS: iohexoL 350 MG/ML 100 ML INFUS..BTL IV (21:51)
== END 2023-09-15 22:39 | disposition home or self-care (01) ==
PROVIDERS: Physician Assistant; Physician Assistant Medical; Emergency Provider Internal Medicine; PCP Physician Assistant
DX: R10.32 Left lower quadrant pain (principal); R10.31 Right lower quadrant pain; R10.2 Pelvic and perineal pain; R11.2 Nausea with vomiting, unspecified; Z87.891 Personal history of nicotine dependence; Z79.899 Other long term (current) drug therapy
CPT/HCPCS: 36415; 74177; 76830; 76856; 80048; 80076; 82947; 84702; 85025; 96374; 96375; 96376; 99284; 99285; J2270; J2405; Q9967

== ENCOUNTER 2023-09-30 | Outpatient (REF) | payer MEDICARE, MEDICAID, SELFPAY | END 2023-09-30 00:01 | disposition home or self-care (01) | LOC: CF | PROVIDERS: PCP Physician Assistant; Visit Provider Obstetrics & Gynecology | DX: R10.2 Pelvic and perineal pain (principal); R31.29 Other microscopic hematuria; Z32.02 Encounter for pregnancy test, result negative | CPT/HCPCS: 0353U; 81025; 87086; 99212 ==

== ENCOUNTER 2023-09-30 13:49 | Outpatient (AMB) | payer MEDICARE, MEDICAID, SELFPAY ==
--- NOTE | 2023-09-30 13:54 | MHC.OFFVIS ---
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 It's intermittent in nature lasting few seconds and occurs 3x/day. it is not associated with constipation, no dysuria, frequency incontinence, no n/v, no feverishness. No vaginal this 09/16 pelvic ultrasound showed the following: Uterus: The uterus is anteverted, anteflexed and measures 9.3 x 4.8 x 6.6 cm. There is a complex endometrial fluid collection limiting measurement of endometrial thickness. The fluid measures 2.2 x 2.3 x 2.3 cm. There are echogenic calcifications visualized in the endometrium. There are small nabothian cysts in the cervix. The uterus is smooth in contour and has normal myometrial echogenicity. No visible fibroid. Adnexa: Both ovaries are visualized. There is normal color flow to the adnexa. There is no ovarian torsion. There is no pelvic ascites or fluid collection. Right ovary measures 2.8 x 1.7 x 1.6 cm. Volume 4.0 mL. It appears unremarkable. Previously it measured 3.0 x 1.7 x 1.7). Left ovary measures 2.4 x 1.5 x 1.9 cm. Volume 3.6 mL. It appears unremarkable. Previously ovary measured 3.2 x 1.6 x 2.1 cm. There is minimal free fluid in pelvis. CT scan showed the following: IMPRESSION: Abnormal appearance to the uterus. There is a 2.2 cm complex collection within the fundal portion of the endometrial cavity. By report patient has had a history of prior endometrial ablation. In this setting, focal hematometra would be suspected. I am unable to delineate a dilated Fallopian tube which would make diagnosis of postablation tubal sterilization syndrome difficult. If there is persistent clinical concern, pelvic MRI may be needed to better delineate this appearance. [facility] Medical History Obesity Diabetes Vitamin D deficiency Multinodular thyroid Hyperparathyroidism Surgical History History of hysteroscopy Hx laparoscopic cholecystectomy Hx of section Hx of tubal ligation Family History Father AIDS Arthritis CVD (cardiovascular disease) Hypertension Stroke Asthma Mother Diabetes Arthritis Hypertension Obesity Heart attack CVD (cardiovascular disease) Asthma Chronic mental illness Maternal Aunt Breast cancer Maternal Aunt Breast cancer Son No problems noted. Daughter No problems noted. Brother No problems noted. Social History Housing: House Alcohol intake: never Patient Tobacco Use Status: Former Tobacco user Cigarettes Per Day: 1 Years Smoked: 3 Advance Directives Date on File: 04/17/21 service: No Current occupational status: unemployed Current occupation: right hand dominant Sexual orientation: Straight/Heterosexual Gender identity: Female Female Reproductive History Menstrual Age of Menarche: 11 Review of Systems Const All systems reviewed & are unremarkable except as noted in HPI and below Physical Exam Vital Signs: BMI result Body Mass Index 34.5 General: Yes no CVA tenderness External Female Exam: normal external appearance and normal appearance of the urethra Speculum Exam - Vagina: normal appearance of the vagina, normal palpation, no lesions and no masses Speculum Exam - Cervix: normal appearance of the cervix, normal palpation, no lesions, no masses and nontender Bimanual exam- vagina & uterus: normal bimanual exam, normal palpation, uterine size normal, normal palpation, uterine shape normal, No Cervical tenderness present and non-tender Bimanual Exam- Adnexa, other: normal adnexae Back/Spine/Pelvis Back: no CVA tenderness Results AMB Test Urine AMB Test Urine Negative Last Edit by Shahnaz Marino CMA on 09/30/23 14:10 Assessment & Plan Assessment & Plan (1) Pelvic pain: Code(s): R10.2 - Pelvic and perineal pain Plan: Urine test was negative. 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 Discussed with the patient the different types of hysterectomies including, vaginal, laparoscopic assisted vaginal, robotic assisted laparoscopic,& abdominal with BSO. All pros, cons, r/b of each approach were discussed the patient including evidence that morbidity is less and recovery is shorter with minimally invasive approaches to hysterectomy. Discussed with the patient the lack of availability of the robot DaVinci robot and/or minimally invasive accounts payables clerk specialist at [facility]. Will refer to [facility] for minimally invasive hysterectomy. All questions answered, the patient verbalized understanding. (2) Microscopic hematuria: Code(s): R31.29 - Other microscopic hematuria Plan: Urine dip showed microscopic hematuria will send urine for culture and will treat if positive with antibiotics, if negative will repeat urine dip in 2 weeks if persistent will proceed with referral to Urology Orders: Orders AMB HCG Urine Test Today Z32.02 - Encounter for test, result negative Urine Culture Today R10.2 - Pelvic and perineal pain CT NG by PCR Today R10.2 - Pelvic and perineal pain Coding Level of Care Code Est Pt Level 3 (21237) Diagnoses Pelvic pain R10.2 Microscopic hematuria R31.29
[2023-09-30 13:58] VITALS: BMI 34.5
== END 2023-09-30 14:30 | disposition home or self-care (01) ==
LOC: HO.HWS 13:49
PROVIDERS: PCP Physician Assistant; Visit Provider Obstetrics & Gynecology
DX: R10.2 Pelvic and perineal pain (principal); R31.29 Other microscopic hematuria; Z32.02 Encounter for pregnancy test, result negative
CPT/HCPCS: 99213

== ENCOUNTER 2023-09-30 14:13 | Outpatient (REF) | payer MEDICARE, MEDICAID, SELFPAY ==
[2023-10-01 07:32] LABS: CT PCR NOT DETECTED (Not Detect.); NG PCR NOT DETECTED (Not Detect.)
== END 2023-09-30 14:14 | disposition home or self-care (01) ==
LOC: HO.LNP 14:13
PROVIDERS: Visit Provider Obstetrics & Gynecology
DX: R10.2 Pelvic and perineal pain (principal)
CPT/HCPCS: 0353U; 87086

== ENCOUNTER 2023-11-20 10:16 | Outpatient (REF) | payer MEDICARE, MEDICAID, SELFPAY ==
--- NOTE | ~2023-11-20 | XR_ITS ---
EXAMINATION: XR ANKLE, RIGHT CLINICAL INFORMATION: Pain COMPARISON: None available. TECHNIQUE: AP, lateral, and mortise views of the right ankle. FINDINGS: No acute fracture or dislocation. Mild degenerative changes of the foot and ankle with Achilles tendon enthesopathy and small dorsal midfoot osteophytes. Soft tissues are unremarkable. No joint effusion. XR/XR ankle RT min 3V IMPRESSION: Mild degenerative changes of the foot and ankle with Achilles tendon enthesopathy and small dorsal midfoot osteophytes.
== END 2023-11-20 10:17 | disposition home or self-care (01) ==
LOC: HO.HOSX 10:16
PROVIDERS: Visit Provider Physician Assistant
DX: S93.401A Sprain of unspecified ligament of right ankle, initial encounter (principal); M72.2 Plantar fascial fibromatosis; M76.62 Achilles tendinitis, left leg; G56.03 Carpal tunnel syndrome, bilateral upper limbs
CPT/HCPCS: 73610; 99212

== ENCOUNTER 2023-11-20 10:40 | Outpatient (AMB) | payer MEDICARE, SELFPAY ==
[2023-11-20 10:50] VITALS: BMI 34.4
--- NOTE | 2023-11-20 10:50 | A.OFFVIS_ITS ---
Intake Vital Signs 11/20/23 10:50 Height 5 ft 6 in Weight 213 lb BMI 34.4 Intake Visit Reasons: Newprob- RT ankle pain Intake Note: Sherry is a 43 year old female who presents today for a follow up of her right ankle pain. Patient report about 3 and a half months ago she had to jonah her mother in law down who has dementia and she states that she felt pressure in her right ankle and a ripping sensation in her left heel when she was running after her. She states she has been icing and elevating. Allergies ketorolac Allergy (Unknown, Verified 11/20/23 10:50) rash From Toradol Allergy (Unknown, Uncoded 09/30/23 13:59) HIVES HPI Newprob- RT ankle pain HPI Details 43-year-old female who presents in the [facility] today for an evaluation of bilateral lower extremity pain. The patient reports 3-4 months ago she has to jonah after her [id number] who has dementia and when she did this she felt pressure in the right ankle a ripping sensation in her left heel while she was running. She reports she has been icing and elevating. She states she has a burning sensation in the left heel on the bottom. She states cold air and ice gives her relief. She states on the right ankle she has edema with red and purple tenting. She reports having pain in the ankle. The patient reports pain and muscle cramping in her bilateral hands. She confirms numbness and tingling in the hand, especially in the morning. She states she can visually watch the muscles in the hand ?stand? up. [facility] Medical History Obesity Diabetes Vitamin D deficiency Multinodular thyroid Hyperparathyroidism Surgical History History of hysteroscopy Hx laparoscopic cholecystectomy Hx of section Hx of tubal ligation Family History Father AIDS Arthritis CVD (cardiovascular disease) Hypertension Stroke Asthma Mother Diabetes Arthritis Hypertension Obesity Heart attack CVD (cardiovascular disease) Asthma Chronic mental illness Maternal Aunt Breast cancer Maternal Aunt Breast cancer Son No problems noted. Daughter No problems noted. Brother No problems noted. Social History Housing: House Alcohol intake: never Patient Tobacco Use Status: Former Tobacco user Cigarettes Per Day: 1 Years Smoked: 3 Advance Directives Date on File: 04/17/21 service: No Current occupational status: unemployed Current occupation: right hand dominant Sexual orientation: Straight/Heterosexual Gender identity: Female Female Reproductive History Menstrual Age of Menarche: 11 Review of Systems Const All systems reviewed & are unremarkable except as noted in HPI and below Physical Exam Vital Signs: BMI result Body Mass Index 34.4 Const General: cooperative and no acute distress Orientation/consciousness: patient oriented x3 Resp Effort & Inspection: normal respiratory effort and able to speak in complete sentences Cardio Peripheral pulses: Peripheral pulses 2+ throughout Skin General skin exam: no rashes or lesions noted Neuro General: patient oriented x3 Extrem Other: Right ankle: Mild tenderness along the peroneal and posterior tibial tendons. Full ROM in all planes. Negative anterior drawer. Sensation intact. Pedal pulse intact. Left foot/ankle: Normal to inspection. No ecchymosis, erythema, or edema. Achilles tendon palpable. Tenderness to palpation along the plantar fascia. Negative George?s test. Full ankle ROM in all planes. Sensation intact. Pedal pulse intact. Bilateral hands: Formal exam was not completed. Patient reports bilateral numbness and tingling. Assessment & Plan Assessment & Plan (1) Right ankle sprain: Code(s): S93.401A - Sprain of unspecified ligament of right ankle, initial encounter (2) Plantar fasciitis of left foot: Code(s): M72.2 - Plantar fascial fibromatosis (3) Left Achilles tendinitis: Code(s): M76.62 - Achilles tendinitis, left leg (4) Right carpal tunnel syndrome: Code(s): G56.01 - Carpal tunnel syndrome, right upper limb (5) Left carpal tunnel syndrome: Code(s): G56.02 - Carpal tunnel syndrome, left upper limb Plan Ms. Patel is a 43-year-old female who presents in the office today for an evaluation of bilateral lower extremity pain. The patient reports 3-4 months ago she has to jonah after her [id number] who has dementia and when she did this she felt pressure in the right ankle a ripping sensation in her left heel while she was running. She reports she has been icing and elevating. She states she has a burning sensation in the left heel on the bottom. She states cold air and ice gives her relief. She states on the right ankle she has edema with red and purple tenting. She reports having pain in the ankle. The patient reports pain and muscle cramping in her bilateral hands. She confirms numbness and tingling in the hand, especially in the morning. She states she can visually watch the muscles in the hand ?stand? up. Right ankle: The patient will be referred to physical therapy to work on ROM and strength of the right ankle. Left heel: The patient will be referred to physical therapy to work on ROM and strength to help with edema. I would like for her to work on the achilles and plantar fascia. Bilateral hands: The patient will be referred for an EMG for further evaluation of the bilateral hand numbness and muscle cramping. Follow up will be after the EMG study has been obtained, or sooner if needed. X-rays of the right ankle which were obtained while in the office today and were reviewed by me, Susy Villalba PA-C, revealed no acute fracture or dislocation. Orders: Orders XR ankle RT min 3V Today M25.579 - Pain in unspecified ankle and joints of unspecified foot NE electromyogram (EMG) Today G56.03 - Carpal tunnel syndrome, bilateral upper limbs, M25.541 - Pain in joints of right hand, M25.542 - Pain in joints of left hand PT Evaluation and Treatment Today G56.03 - Carpal tunnel syndrome, bilateral upper limbs Patient Instructions: Scribed for Susy Villalba PA-C by Edith Haji medical or surgical instrument maker, on 11/20/2023 at 10:43 am, EST. Coding Level of Care Code Est Pt Level 4 (30593) Diagnoses Right ankle sprain S93.401A Plantar fasciitis of left foot M72.2 Left Achilles tendinitis M76.62 Right carpal tunnel syndrome G56.01 Left carpal tunnel syndrome G56.02
== END 2023-11-20 11:14 | disposition home or self-care (01) ==
PROVIDERS: PCP Physician Assistant; Visit Provider Physician Assistant
DX: S93.401A Sprain of unspecified ligament of right ankle, initial encounter (principal); M72.2 Plantar fascial fibromatosis; M76.62 Achilles tendinitis, left leg; G56.03 Carpal tunnel syndrome, bilateral upper limbs
CPT/HCPCS: 99213

== ENCOUNTER 2024-05-05 12:56 | Outpatient (REF) | payer MEDICARE, MEDICAID, SELFPAY ==
--- NOTE | ~2024-05-05 | XR_ITS ---
EXAMINATION: XR SHOULDER, RIGHT CLINICAL INFORMATION: Pain COMPARISON: None available. TECHNIQUE: AP external rotation, Grashey, scapular Y, and axillary views of the right shoulder. FINDINGS: No acute fracture or dislocation. Mild acromioclavicular arthritis.. Glenohumeral and acromioclavicular alignment is anatomic with normal joint space. No abnormal soft tissue calcifications. XR/XR shoulder RT 1V IMPRESSION: Mild acromioclavicular arthritis
--- NOTE | ~2024-05-05 | XR_ITS ---
EXAMINATION: XR LUMBOSACRAL SPINE CLINICAL INFORMATION: Low back pain. COMPARISON: Sacrum and coccyx April 21, 2021. TECHNIQUE: 3 views of the lumbosacral spine. FINDINGS: Dextroscoliosis of the lumbar spine. Surgical clips in the right upper quadrant. Degenerative changes in the bilateral sacroiliac joints. Facet arthritis in the [id number] lumbar spine. Moderate multilevel lumbar spondylosis. Transitional anatomy present. Correlation with imaging of the entire spine recommended before any procedure/instrumentation to ensure correct numbering of vertebral bodies. XR/XR lumbar spine 2-3V IMPRESSION: 1. Moderate multilevel lumbar spondylosis. 2. Transitional anatomy present. Correlation with imaging of the entire spine recommended before any procedure/instrumentation to ensure correct numbering of vertebral bodies.
[2024-05-05 14:04] LABS: Hematocrit 42.8 % (37.0-47.0); Hemoglobin 14.4 g/dl (12.0-16.0); Mean Corpuscular HGB Conc 33.6 g/dl (31.0-35.0); Mean Corpuscular Hemoglobin 30.8 pg (27.0-33.0); Mean Corpuscular Volume 91.5 fL (80.0-98.0); Platelet Count 260 X10*3/uL (160-400); Red Blood Count 4.68 X10*6/uL (4.20-5.50); Red Cell Distribution Width 12.5 % (11.0-16.0); White Blood Count 7.1 X10*3/uL (4.8-10.8)
[2024-05-05 14:35] LABS: Appearance Urine Clear; Color Urine Yellow; Glucose Urine UA Negative (Negative); Leukocyte Esterase Urine Moderate (2+) (Negative); Nitrite Urine Negative (Negative); PH 6.5 (5.0-9.0); UMIC TRIGGER UACC YES; Urine Blood Negative (Negative); Urine Ketones Negative (Negative); Urine Protein Negative (Neg-Trace)
[2024-05-05 14:37] LABS: Parathyroid Hormone Intact 118.1 pg/mL (8.7-77.1)
[2024-05-05 14:41] LABS: Alanine Aminotransferase 9 U/L (0-31); Albumin Level 3.9 g/dL (3.5-5.0); Alkaline Phosphatase 62 U/L (39-117); Anion Gap 12 (12-20); Aspartate Amino Transferase 13 U/L (5-31); Bilirubin Total 0.3 mg/dL (0.0-1.0); Blood Urea Nitrogen 10 mg/dL (9-16); Calcium 9.2 mg/dL (8.4-10.2); Carbon Dioxide 22 mmol/L (22-29); Chloride 108 mmol/L (96-108); Estimated Glomerular Filt Rate > 60; Glucose Fasting 101 mg/dL (60-99); Sodium 138 mmol/L (135-145); Total Protein 7.7 g/dL (6.5-8.0)
[2024-05-05 14:41] LABS: Creatinine Urine 217.03 mg/dL; Microalbum/Creatinine Ratio Ur 8.2 ug/mg cr (<30)
[2024-05-05 14:52] LABS: Vitamin D 25-OH Total 21.4 ng/mL (>30)
[2024-05-05 15:23] LABS: Bacteria Urine 1+ (None Seen); Hyaline Casts Urine 0-2 /LPF (0-2); RBC Urine 0-2 /HPF (0-2); Squamous Epithelial Cell Urine 0-2 /HPF (0-2); UACC Culture Trigger YES; WBC Urine 21-50 /HPF (0-5)
[2024-05-06 22:28] LABS: Transglutaminase IgA <1.0 U/mL
== END 2024-05-05 12:57 | disposition home or self-care (01) ==
LOC: HO.LAB 12:56
PROVIDERS: PCP Physician Assistant; Visit Provider Physician Assistant
DX: I10 Essential (primary) hypertension (principal); R14.0 Abdominal distension (gaseous); E04.2 Nontoxic multinodular goiter; E55.9 Vitamin D deficiency, unspecified; E21.3 Hyperparathyroidism, unspecified; M54.50 Low back pain, unspecified; M25.511 Pain in right shoulder; R30.0 Dysuria
CPT/HCPCS: 36415; 72100; 73020; 80053; 81001; 82043; 82306; 82570; 83970; 85027; 86364; 87086; 87088; 87186

== ENCOUNTER 2024-05-26 15:53 | Outpatient (AMB) | payer MEDICARE, MEDICAID, SELFPAY ==
[2024-05-26 15:53] VITALS: BP 126/84; PULSE 80; O2SAT 98; BMI 39.4
--- NOTE | 2024-05-26 15:53 | A.OFFPC_ITS ---
Vital Signs 3 05/26/24 15:53 Height 5 ft 6 in Weight 244 lb BMI 39.4 BP 126/84 Blood Pressure Location Lt brachial Position Sitting Pulse 80 Pulse Source Pulse Oximeter Pulse Oximetry (%) 98 Oxygen Delivery Method Room Air Intake Visit Reasons: R/S from 05/23-right arm pain Allergies ketorolac Allergy (Unknown, Verified 05/26/24 16:03) rash From Toradol Allergy (Unknown, Uncoded 05/26/24 16:03) HIVES Medication List - Last Reconciled 05/26/24 by Rainer Portillo PA-C blood sugar diagnostic (FreeStyle Lite Strips) 1 strip miscellaneous DAILY cholecalciferol (vitamin D3) (Vitamin D3) 125 mcg PO DAILY diclofenac sodium 75 mg PO BID 7 days flash glucose scanning reader (YesVideoStyle Magdalena 2 [place]) As directed flash glucose sensor (FreeStyle Magdalena 2 Sensor kit) As directed fluconazole 150 mg PO Q3D 2 doses lorazepam 0.5 mg PO DAILY PRN 4 days metformin 500 mg PO BID 90 days metoprolol tartrate 100 mg PO BID nitrofurantoin monohyd/m-cryst 100 mg (Macrobid) 100 mg PO Q12H 5 days ondansetron 4 mg PO Q6H PRN ondansetron HCl 4 mg PO Q8H PRN pantoprazole 20 mg PO DAILY ProAir HFA 90 mcg/actuation (albuterol sulfate) 1 puff PO QID PRN NS tizanidine 4 mg PO BEDTIME 30 days tramadol 50 mg PO Q8H 7 days Tobacco use date assessed: 04/23/21 HPI R/S from 05/23-right arm pain 2 HPI0 Details Patient is a 44-year-old female here today for routine annual physical Patient has a past medical history significant obesity, hypertension hyperparathyroidism, thyroid nodules. Today patient presents with multiple somatic pain complaints. Today she is mostly concerned about having a thyroid dysfunction. She does admit to a family history of thyroid disease. She reports complaints consistent of weight gain, chronic fatigue muscle aches, hair loss, constipation resulting in a very depressed mood. She attributes all the symptoms to possibly having a thyroid dysfunction. She does have hyperparathyroid thus will start vitamin-D supplementation again. Of note did get a thyroid biopsy a few years ago that did show--> varying degree of lymphocytic inflammation, which raises the possibility of lymphocytic thyroiditis. Additional concern--> she reports at night having palpitations and strong pounding heartbeats. She does admit to daytime fatigue and reports of witnessed apneic episodes. Will send for home sleep study to evaluate for nausea to sleep apnea as she does have risk factors for this. .. Hypertension: Patient's blood pressure today in office acceptable. She continues on metoprolol 100 b.i.d. with decent affect. She does have spikes in her blood pressure from time to time for some unclear reason. .. Hyperparathyroidism: Patient was followed by Endocrinology and has actually seen an endocrine surgeon at [facility] for evaluation for thyroidectomy. Unfortunately patient has not been keeping up with labs and imaging that her local data integration analyst is requesting. Seems she needs a vitamin-D level above 30 for are particular amount of time before being a candidate for thyroidectomy. .. Polyarthralgia: She continues to have worsening joint pains worse in her hands..she does use tramadol on a PRN basis which has been effective on reducing pain temporarily. Has tried recently diclofenac though was not effective at all. Colorectal cancer screening: willing to do colonoscopy Vaccines: Needs up-to-date tetanus, up-to-date with COVID vaccine Director Supply: Has underwent a recent hysterectomy Mammogram: Needs up-to-date mammogram [facility] [place] Medical History (Updated 05/30/24 @ 07:09 by Rainer Portillo PA-C) Adenopathy Obesity Vitamin D deficiency Multinodular thyroid Hyperparathyroidism Surgical History History of hysteroscopy Hx laparoscopic cholecystectomy Hx of section Hx of tubal ligation Family History Father AIDS Arthritis CVD (cardiovascular disease) Hypertension Stroke Asthma Mother Diabetes Arthritis Hypertension Obesity Heart attack CVD (cardiovascular disease) Asthma Chronic mental illness Adult hypothyroidism Maternal Aunt Breast cancer Maternal Aunt Breast cancer Son No problems noted. Daughter No problems noted. Brother No problems noted. Social History Housing: House Alcohol intake: never Patient Tobacco Use Status: Former Tobacco user Cigarettes Per Day: 1 Years Smoked: 3 Advance Directives Date on File: 04/17/21 service: No Current occupational status: unemployed Current occupation: right hand dominant Sexual orientation: Straight/Heterosexual Gender identity: Female Female Reproductive History Menstrual Age of Menarche: 11 Questionnaire PHQ-9 Over the last 2 weeks, how often have you been bothered by any of the following problems? 1. Little interest or pleasure in doing things: not at all 2. Feeling down, depressed, or hopeless: not at all 3. Trouble falling or staying asleep, or sleeping too much: not at all 4. Feeling tired or having little energy: not at all 5. Poor appetite or overeating: not at all 6. Feeling bad about yourself - or that you are a failure or have let yourself or your family down: not at all 7. Trouble concentrating on things, such as reading the newspaper or watching television: not at all 8. Moving or speaking so slowly that other people could have noticed. Or the opposite - being so fidgety or restless that you have been moving around a lot more than usual: not at all 9. Thoughts that you would be better off or of hurting yourself in some way: not at all Total score: 0 Depression Screening Interpretation: Negative Depression Screening Done: Yes 36084 - PHQ-9 Billing: Yes Source: Developed by Drs. Néstor Arias, Salima Magdaleno, Cm Patel and colleagues, with an educational robert from [employer]. Thrive Questionnaire Date Thrive assessed: 05/26/24 I am a: Patient What is your living situation today?: I have a steady place to live Within the past 12 months, did the food you bought not last and you didn't have the money to get more?: Never true Within the past 12 months, did you worry whether your food would run out before you got money to buy more?: Never true Do you have trouble paying for medicines?: No Do you have trouble getting transportation to medical appointments?: No Do you have trouble paying your heating and electricity bill?: No Do you have trouble taking care of your child, family member or friend?: No Do you have trouble with day-to-day activities such as bathing, preparing meals, shopping, managing finances, etc.?: No Are you currently unemployed and looking for a job?: No Are you interested in more education?: No Please select the resources that you would like help with: None Currently or been in a relationship where the following occur: No concerns reported THRIVE Score: 0 AUDIT C Alcohol Use Questionnaire (AUDIT-C) 1. How often do you have a drink containing alcohol?: Never 3. How often do you have six or more drinks on one occasion?: Never Total Score: 0 Score Reviewed/Action Taken: Yes KELLY-7 AMB Questionnaire KELLY-7 Date KELLY - 7 assessed: 05/26/24 Feeling nervous, anxious, or on edge: 3 = Nearly every day Not being able to stop or control worryin = Several days Worrying too much about different things: 1 = Several days Trouble relaxin = Nearly every day Being so restless that it is hard to sit still: 1 = Several days Becoming easily annoyed or irritable: 1 = Several days Feeling afraid as if something awful might happen: 2 = More than half the days Total KELLY-7 score (0-4 normal; 5-9 mild; 10-14 moderate; 15-21 severe): 12 Source: Developed by Drs. Néstor Arias, Salima Magdaleno, Cm Patel and colleagues, with an educational robert from [employer]. KELLY-7 Assessment Billing KELLY-7 Assessment Tool: KELLY-7 Assessment 22735 Review of Systems Const Reports body aches, Denies chills, Denies excessive sweating, Denies fatigue, Denies fever(s) and Reports headache(s) Eyes Denies blurry vision ENT Denies dysphagia, Denies vertigo, Denies dizziness, Reports headache(s), Denies hearing loss and Denies tinnitus Card Denies chest pain, Denies chest pain with activity, Denies syncope, Denies irregular heart rhythm, Reports palpitations and Denies dyspnea Resp Denies chest congestion, Denies cough, Denies hemoptysis, Denies dyspnea and Denies wheezing GI Denies abdominal pain, Denies melena, Denies hematochezia, Denies coffee ground emesis, Reports constipation, Denies dysphagia, Denies diarrhea, Denies nausea and Denies vomiting Denies urinary frequency, Denies dysuria, Denies urinary hesitancy and Denies urinary urgency Musc Reports back pain, Reports arthralgias, Reports limited range of motion, Denies muscle cramps, Denies muscle weakness and Reports stiffness Skin/Breast Denies rash and Denies skin ulcer Neuro Denies Abnormal speech present, Denies confusion, Denies vertigo, Denies dizziness, Denies syncope, Reports headache(s), Denies memory loss and Denies seizure-like activity Psych Denies anxiety, Denies confusion, Denies depression, Denies memory loss, Denies panic attacks and Denies paranoia Endo Denies excessive sweating, Denies fatigue, Denies flushing, Denies polydipsia, Denies polyuria and Reports palpitations Aller/Immun Denies wheezing Physical exam (Primary Care) Vital Signs: Last Vital Signs Pulse 80 05/26/24 15:53 BP 126/84 05/26/24 15:53 Pulse Ox 98 05/26/24 15:53 Oxygen Delivery Method Room Air 05/26/24 15:53 BMI result Body Mass Index 39.4 Tobacco/Smoking Status: Tobacco use Status Tobacco use date assessed 04/23/21 05/26/24 15:54 Patient Tobacco Use Status Former Tobacco user 05/26/24 15:54 PHQ-9: PHQ-9 Score PHQ-9: Total score 0 05/26/24 16:05 Depression Screening Interpretation: Negative Thrive Assessment: Date of Thrive Assessment Date Thrive assessed 05/26/24 05/26/24 16:02 Currently or been in a relationship where the following occur: No concerns reported Const General: cooperative, comfortable, no acute distress, alert and awake; No confusion Orientation/consciousness: oriented to person, oriented to place, patient oriented x3 and No confusion HENMT Head: Yes normocephalic Ears: external ears normal and TM's normal bilaterally Face and sinus: No sinus tenderness Mouth: Normal oral and palatal mucosa present and tongue normal Teeth and gingiva: dentition normal and gingiva normal Throat: Yes posterior oropharynx normal, Yes tonsils normal and Yes uvula midline Eyes Conjunctivae: conjunctivae normal Sclerae: sclerae normal Pupils: Equal, round and reactive pupils present EOM: EOMs intact bilaterally Direct Ophthalmoscopy: No no photophobia Neck Neck: Yes no lymphadenopathy, No tender and Yes no JVD Thyroid: Thyroid normal Carotids: no bruits Neck images: 2 1. MILD FULLNESS OVER THE RIGHT SIDE OF THE ANTERIOR ASPECT OF NECK Chest Chest palpation & inspection: no tenderness Resp Effort & Inspection: normal respiratory effort, no audible wheezes, not labored and no stridor Auscultation: no crackles, no rales, no rhonchi and no wheezes Cardio Jugular venous distension: no JVD Rate: regular rate, not bradycardic and not tachycardic Rhythm: regular rhythm Bruits: no carotid bruits Peripheral pulses: Peripheral pulses 2+ throughout GI Inspection: Yes normal to inspection, No abdominal wall ecchymosis and No visible herniation Palpation (GI): Soft to palpation, nontender, no guarding, not rigid and No hepatosplenomegaly present Auscultation: normoactive bowel sounds General: Yes no CVA tenderness Back/Spine/Pelvis Back: no CVA tenderness and No back tenderness Cervical Spine: cervical ROM normal Thoracic/Lumbar Spine: thoracic and lumbar spine normal to inspection, straight leg raise negative bilaterally, No thoraco-lumbar ROM limited and No lumbar spinal tenderness Skin Lesions: no lesions Rashes: no rashes Wounds: no wounds Neuro General: oriented to person, oriented to place, patient oriented x3, CN's II-XI intact bilaterally and No confusion Cranial nerves: Yes Equal, round and reactive pupils present and Yes Normal accommodation reflex present Cognition (Neuro): normal cognition Speech: No Abnormal speech present Gait exam (Neuro): Normal gait present Motor exam (neuro): 5/5 motor strength present throughout Extrem Right upper extremity: full ROM; no cyanosis Left upper extremity: full ROM; no cyanosis Right lower extremity: no edema Left lower extremity: no edema Psych Appearance: grossly normal Mental Status: mental status grossly normal Affect: normal affect Attitude: cooperative Thought process: Normal thought process present Results AMB Hemoglobin A1c 2 AMB Hemoglobin A1c 5.6 % Last Edit by AGATA Melendez on 05/26/24 16:06 Results Reviewed Results Reviewed: Laboratory Last Values Hgb A1c (Clinic) 5.6 % (4.0-6.0) 05/26/24 15:55 Assessment and Plan Assessment & Plan (1) Annual physical exam: Code(s): Z00.00 - Encounter for general adult medical examination without abnormal findings (2) Hyperparathyroidism: Code(s): E21.3 - Hyperparathyroidism, unspecified Plan: Most recent parathyroid hormone elevated. Thus will start vitamin-D supplementation. Will refer to Endocrinology (3) Thyroiditis: Code(s): E06.9 - Thyroiditis, unspecified Plan: As per HPI patient was being followed by data integration analyst a few years ago unfortunately data integration analyst left practice. She has continued to have signs and symptoms concerning for hypothyroid (loss of hair, weight gain, chronic fatigue, depression, constipation ect..) She did get a thyroid biopsy due to thyroid nodules. Biopsy did show signs consistent with--> varying degree of lymphocytic inflammation, which raises the possibility of lymphocytic thyroiditis. (4) Obesity: Code(s): E66.9 - Obesity, unspecified Qualifiers: Body mass index: BMI 45.0-49.9 Obesity classification: adult class 3 (BMI >= 40) Obesity type: due to excess calories Serious obesity comorbidity presence: with serious comorbidity Qualified Code(s): E66.01 - Morbid (severe) obesity due to excess calories; Z68.42 - Body mass index [BMI] 45.0-49.9, adult Plan: Patient does understand her BMI is well over 30 and finds very difficult to lose weight and she is concerned about this. I advised her on portion control and being more physically active to reduce her weight. (5) Recurrent UTI: Code(s): N39.0 - Urinary tract infection, site not specified Plan: Unclear etiology to patient's recurrent UTI. She recently did have a full hysterectomy which she has noted more UTIs after her surgery. Will supply patient with long-term antibiotic use will consider Urology evaluation. (6) Colon cancer screening: Code(s): Z12.11 - Encounter for screening for malignant neoplasm of colon Plan: Patient willing to do colonoscopy (7) Breast cancer screening: Code(s): Z12.39 - Encounter for other screening for malignant neoplasm of breast Qualifiers: Breast cancer screening modality: mammogram Qualified Code(s): Z12.31 - Encounter for screening mammogram for malignant neoplasm of breast Plan: Patient willing to do a mammogram. (8) Witnessed episode of apnea: Code(s): R06.81 - Apnea, not elsewhere classified Plan: Patient does have risk factors for obstructive sleep apnea. STOP BANG questionnaire- high-risk for obstructive sleep apnea (9) Right shoulder tendonitis: Code(s): M77.8 - Other enthesopathies, not elsewhere classified Plan: She reports having right shoulder pain and decreased range of motion for few weeks now. She denies any acute trauma to her right shoulder. Does have x-ray in though waiting radiology read out. She would benefit from physical therapy. Will consider MRI if she does not benefit from physical therapy. (10) HTN (hypertension): Code(s): I10 - Essential (primary) hypertension Qualifiers: Hypertension type: unspecified Qualified Code(s): I10 - Essential (primary) hypertension Plan: Patient's blood pressure acceptable today in office. Will continue her current dose of metoprolol with goal blood pressure to remain below 140/90. Will evaluate for obstructive sleep apnea due to her symptoms of fatigue and apneic episodes at night. (11) MDD (major depressive disorder), recurrent episode, moderate: Code(s): F33.1 - Major depressive disorder, recurrent, moderate Plan: Patient's PHQ-9 score 0, does suffer from depression to which she relates to personal issues at home and her own medical issues. She feels she has good support by family Orders: Orders 2 US thyroid 05/26/24 E06.9 - Thyroiditis, unspecified Thyroid Peroxidase Antibodies 05/26/24 E06.9 - Thyroiditis, unspecified PT Evaluation and Treatment 05/26/24 M77.8 - Other enthesopathies, not elsewhere classified ALLISON Reflex Titer and Pattern Today M13.0 - Polyarthritis, unspecified DNA Double Stranded-Crithidia Today M13.0 - Polyarthritis, unspecified Cyclic Citrullinated Peptide Today M13.0 - Polyarthritis, unspecified AMB Hemoglobin A1c 05/26/24 E08.9 - Diabetes mellitus due to underlying condition without complications TSH reflex Free T4 05/26/24 E06.9 - Thyroiditis, unspecified MM screening mammo BI 05/26/24 Z12.31 - Encounter for screening mammogram for malignant neoplasm of breast, Z12.39 - Encounter for other screening for malignant neoplasm of breast RT home sleep study 05/26/24 R06.81 - Apnea, not elsewhere classified Rheumatoid Factor Today M13.0 - Polyarthritis, unspecified Erythrocyte Sedimentation Rate Today M13.0 - Polyarthritis, unspecified Referrals 2 Endocrinology Referral E06.9 - Thyroiditis, unspecified Gastroenterology Referral Z12.11 - Encounter for screening for malignant neoplasm of colon Medications: New 2 semaglutide (weight loss) (Wegovy) administer weeks 1 through 4 of therapy 0.25 mg (0.5 mL) subcut QWEEK 4 weeks 2 mL 0RF E08.9 - Diabetes mellitus due to underlying condition without complications, E66.01 - Morbid (severe) obesity due to excess calories, I10 - Essential (primary) hypertension, Z68.42 - Body mass index [BMI] 45.0-49.9, adult hydroxyzine HCl 25 mg PO ONCE 5 days 5 tabs 0RF F41.9 - Anxiety disorder, unspecified trimethoprim 100 mg PO DAILY 90 days 90 tabs 1RF N39.0 - Urinary tract infection, site not specified lidocaine 5% leave on most painful area for up to 12 hrs 1 patch topical DAILY 30 days 30 ea 3RF M54.50 - Low back pain, unspecified, M77.8 - Other enthesopathies, not elsewhere classified Changed 2 From tramadol 50 mg PO Q8H 7 days 21 tabs 0RF M54.2 - Cervicalgia To tramadol 50 mg PO BID 30 days PRN 60 tabs 0RF pain M54.2 - Cervicalgia Refilled 2 cholecalciferol (vitamin D3) (Vitamin D3) 125 mcg PO DAILY 30 tabs 3RF Discontinued 2 diclofenac sodium Discontinued Reason: Doctor's Order 75 mg PO BID 7 days 14 tabs 0RF for pain lorazepam To take 1 hour before flight Discontinued Reason: Doctor's Order 0.5 mg PO DAILY 4 days PRN 4 tabs 0RF anxiety F43.21 - Adjustment disorder with depressed mood nitrofurantoin monohyd/m-cryst 100 mg (Macrobid) must administer with a meal/food Discontinued Reason: Doctor's Order 100 mg PO Q12H 5 days 10 caps 0RF Coding Level of Care Code Est Pt Prev Care 40-64y(83933) Diagnoses Annual physical exam Z00.00 Hyperparathyroidism E21.3 Thyroiditis E06.9 Class 3 severe obesity due to excess calories with serious comorbidity and body mass index (BMI) of 45.0 to 49.9 in adult E66.01; Z68.42 Body mass index: BMI 45.0-49.9 Obesity classification: adult class 3 (BMI >= 40) Obesity type: due to excess calories Serious obesity comorbidity presence: with serious comorbidity Recurrent UTI N39.0 Colon cancer screening Z12.11 Encounter for screening mammogram for malignant neoplasm of breast Z12.31 Breast cancer screening modality: mammogram Witnessed episode of apnea R06.81 Right shoulder tendonitis M77.8 Hypertension, unspecified type I10 Hypertension type: unspecified MDD (major depressive disorder), recurrent episode, moderate F33.1 Additional Codes KELLY-7 Assessment Billing - KELLY-7 Assessment Tool: KELLY-7 Assessment [id number] ([id number])
== END 2024-05-26 16:44 | disposition home or self-care (01) ==
PROVIDERS: PCP Physician Assistant; Visit Provider Physician Assistant
DX: E11.9 Type 2 diabetes mellitus without complications (principal)
CPT/HCPCS: 83036; 99396

== ENCOUNTER → 2024-06-22 13:58 | Outpatient (RCR) | payer OTHER, SELFPAY ==
[2020-10-17 09:52] VITALS: BP 187/92; PULSE 64; RESP 18; TEMP 36.1; O2SAT 97; BMI 47.8
[2020-10-17 11:01] LABS: MANUAL DIFF FLAG NO
[2020-10-17 11:04] LABS: Basophils Percent Auto 0.2 % (0-2); Eosinophils Absolute Auto 0.1 X10*3/uL (0.0-0.4); Eosinophils Percent Auto 1.2 % (0-4); Hemoglobin 13.6 g/dl (12.0-16.0); Imm Gran Abs Auto 0.02 X10*3/uL (0.00-0.03); Imm Gran Pct Auto 0.2 % (0.0-0.4); Lymphocytes Absolute Auto 3.2 X10*3/uL (1.2-4.9); Mean Corpuscular HGB Conc 32.4 g/dl (31.0-35.0); Mean Corpuscular Hemoglobin 30.5 pg (27.0-33.0); Mean Corpuscular Volume 94.2 fL (80-98); Mean Platelet Volume 9.2 fL (9.4-12.3); Monocytes Absolute Auto 0.6 X10*3/uL (0.1-1.2); Monocytes Percent Auto 6.9 % (2-11); Neutrophils Absolute Auto 5.2 X10*3/uL (2.0-8.3); Neutrophils Percent Auto 56.5 % (45-73); Platelet Count 338 X10*3/uL (160-400); Red Blood Count 4.46 X10*6/uL (4.20-5.50); Red Cell Distribution Width 12.2 % (11.0-16.0); White Blood Count 9.2 X10*3/uL (4.8-10.8)
--- NOTE | 2020-10-17 11:14 | MHC.HEMONCSW ---
ULTRASOUND OF NECK PLACED IN O.F.
[2020-10-17 11:35] LABS: Lactate Dehydrogenase 161 U/L (122-220)
[2020-10-17 11:56] LABS: Ferritin 54 ng/mL (10-250)
--- NOTE | 2020-10-17 13:25 | P.CNHO_ITS ---
Subjective - Subjective Chief complaint: Swollen glands Consult date: 10/17/20 Primary Care Provider: Rainer Portillo PA-C HPI - Consult Narrative Reason for consult: Swollen neck glands Narrative: Sherry Patel is a 40 year old female referred for evaluation of lymphadeno frandy. Patient states that she has been experiencing swelling in her neck but causes for difficulty swallowing. She also reports constitutional symptoms of fever, chills and night sweats. She is however not losing weight. She reports chronic abdominal pain. She has had imaging studies both CT abdomen as well as brain scans for headaches and abdominal pain, all these were negative. She reports fatigue and malaise. She reports lack of appetite. Review of Systems - Constitutional Reports as per HPI Oncology Screenings - ECOG Performance Status ECOG Performance Status: 0 [facility] Medical History: Medical History (Last Updated 08/10/20 @ 22:25 by Fang Esparza NP) Diabetes Hyperparathyroidism Multinodular thyroid Vitamin D deficiency Family History: Family History (Last Updated 10/17/20 @ 10:01 by Gloria Brandon RN) Father AIDS Arthritis CVD (cardiovascular disease) Hypertension Mother Diabetes Arthritis Hypertension Obesity Heart attack Surgical History: Surgical History (Last Updated 07/30/20 @ 11:48 by Vanessa Gamino LPN) Hx laparoscopic cholecystectomy Hx of section Hx of tubal ligation Smoking status: Never smoker Home Medications and Allergies Home Medications Medication Instructions Recorded Confirmed Type cholecalciferol (vitamin D3) 25 25 mcg PO DAILY 07/30/20 10/17/20 History mcg (1,000 unit) tablet thiamine HCl (vitamin B1) 100 mg 100 mg PO DAILY 07/30/20 10/17/20 History tablet losartan 100 mg tablet 100 mg PO BID tab 08/10/20 10/17/20 History tramadol 50 mg tablet 50 mg PO BID PRN 10/16/20 10/17/20 History Allergies Allergy/AdvReac Type Severity Reaction Status Date / Time ketorolac Allergy Unknown rash Verified 10/17/20 10:02 From Toradol Allergy Unknown HIVES Uncoded 07/12/20 14:58 Physical Exam Vital signs: Vital Signs Temp 97.0 F 10/17/20 09:52 Pulse 64 10/17/20 09:52 Resp 18 10/17/20 09:52 BP 187/92 H 10/17/20 09:52 Pulse Ox 97 10/17/20 09:52 Intake & Output 10/16/20 10/17/20 10/17/20 18:59 06:59 18:59 Other: Weight 126.4 kg Weight 126.4 kg - Constitutional Present: no acute distress - Routine HEENT Exam Head: Present: normal inspection Eye: Present: EOMI - Routine Neck Exam Present: full ROM. Absent: lymphadenopathy - Routine Respiratory Exam Present: CTAB - Routine Cardiovascular Exam Cardiovascular: Present: S1, S2 Hem/Onc Consult Result - Labs CBC & Chem 7: 10/17/20 10:49 Labs: Short CBC 10/17/20 Range/Units 10:49 WBC 9.2 (4.8-10.8) X10*3/uL Hgb 13.6 (12.0-16.0) g/dl Hct 42.0 (37-47) % Plt Count 338 (160-400) X10*3/uL Assessment and Plan (1) Adenopathy Status: Chronic 1. This is a 40-year-old woman with multiple complaints referred for evaluation of lymphadenopathy. She carries a diagnosis of lymphadenopathy as well as lymphadenitis but I could not appreciate any significant lymphadenopathy on exam today. Part of this may be because of her body habitus. Blood work today is normal without elevation in LDH or ESR. She has normal CBC. I have ordered ultrasound of the neck to see if there is any lymphadenopathy. Depending on this further recommendations will be made. I thank you for this referral.
--- NOTE | 2020-10-17 13:53 | MHC.HEMONC ---
Patient seen for consult. Clinical summary updated with nurse. Provider seen patient. Labs ordered and drawn. Follow-up given.
[2020-10-18 13:17] LABS: Prot Elec - Albumin 3.9 g/dL (3.8-4.8); Prot Elec - Alpha1 0.4 g/dL (0.2-0.3); Prot Elec - Alpha2 0.9 g/dL (0.5-0.9); Prot Elec - Beta 1 0.6 g/dL (0.4-0.6); Prot Elec - Beta 2 0.4 g/dL (0.2-0.5); Prot Elec - Gamma 1.4 g/dL (0.8-1.7); Prot Elec - Total Protein 7.5 g/dL (6.1-8.1)
[2020-10-18 17:12] LABS: IgA 308 mg/dL (47-310); IgG 1504 mg/dL (600-1640); IgM 137 mg/dL (50-300)
--- NOTE | 2020-11-30 15:01 | MHC.HEMONC ---
Patient called, LM regarding patients 1400 telehealth appointment. Patient did not return phone call, if patient calls back will have to re-schedule.
== END | disposition home or self-care (01) ==
LOC: HO.ONC 10-17 09:34
PROVIDERS: PCP Physician Assistant; Referring Provider Physician Assistant; Visit Provider Internal Medicine
DX: R59.1 Generalized enlarged lymph nodes (principal)
CPT/HCPCS: 36415; 82728; 82784; 83615; 84155; 84165; 85025; 86334; 99202

== ENCOUNTER 2025-02-15 08:06 | Outpatient (AMB) | payer MEDICARE, SELFPAY ==
--- OUTSIDE RECORDS SUMMARY | 2025-02-15 08:18 | XMS_ITS | Clinical Summary ---
Author Organization [employer] Address [address] [place] [address] Care Team Providers Care [employer] Maker Name Role Phone Unavailable Primary Care Provider Unavailabl e Social History Tobacco Use Types Packs/Day Years Used Date Smoking Tobacco: Never Assessed Comments Unknown Sex and Gender Information Value Date Recorded Sex Assigned at Female 08/25/2022 10:23 AM EDT Legal Sex Female 10:23 AM EDT Gender Identity Female 04/20/2023 2:27 PM EDT Sexual Orientation Something else 04/20/2023 2: 27 PM EDT Plan of Treatment Health Maintenance Due Date Last Done Comments CT Colonography 1979 Colonoscopy 1979 Colorectal Cancer Screening 1979 Depression Screening 1979 FIT DNA/Cologuard 1979 FIT 1979 FOBT 1979 HIV Screening 1979 SDOH Screening 1979 Sigmoidoscopy 1979 Alcohol/Substance Use Screening 1991 Tobacco Screening 1991 Family Planning (PISQ) 1994 Hepatitis C Screening 1997 DTaP/Tdap/Td Vaccines (1 - Tdap) 1998 Hepatitis B Vaccines (1 of 3 - 19+ 3-dose series) 1998 Pap Smear 2000 Cervical Cancer Screening 2009 HPV/Cotest 2009 Dental Oral Exam 06/11/2012 12/11/2011 Dental Prophylaxis 06/11/2012 12/11/2011 Dental X-Ray: Full Mouth 06/30/2018 015, 12/11/2011 Mammogram 2019 Dental X-Ray: Bitewings 02/23/2020 02/22/20 19, 12/11/2011 COVID-19 Vaccine ( - 2023-2 5 season) 2024 Influenza Vaccine (#1) 2024 Zoster Vaccines (1 of 2) 2029 RSV Patients and Patients Aged 60 years or older (1 - 1-dose 75+ series) 2054 HIB Vaccines Aged Out No longer eligi ble based on patient's age to complete this topic HPV Vaccines Aged Out No longer eligi ble based on patient's age to complete this topic Hepatitis A Vaccines Aged Out No long er eligible based on patient's age to complete this topic IPV Vaccines Aged Out No longer eligi ble based on patient's age to complete this topic Meningococcal Vaccine Aged Out No aminata binh eligible based on patient's age to complete this topic Pneumococcal Vaccine: Pediatrics (0 to 5 Years) and At-Risk Patients (6 to 49) Years) Aged Out No longer eligible b ased on patient's age to complete this topic RSV under 20 months Aged Out No longe r eligible based on patient's age to complete this topic Rotavirus Vaccines Aged Out No longer eligible based on patient's age to complete this topic Procedures Procedure Name Priority Date/Time Associated Diagnosis Comments BITEWING - SINGLE RADIOGRAPHIC IMAGE Routine 02/21/2019 12:00 AM EDT PANORAMIC RADIOGRAPHIC IMAGE Routine 06/29/2015 12:00 AM EDT PROPHYLAXIS - ADULT Routine 12/11/2011 1 2:00 AM EST COMPREHENSIVE ORAL EVALUATION - NEW OR ESTABLISHED PATIENT Routine 12/11/2011 12:00 AM EST from Last 3 Months or Most Recently Relevant to Health Maintenance Insurance [facility] MEDICAID STAND ADULT
--- NOTE | 2025-02-15 11:58 | A.OFFVIS_ITS ---
VS Expanded 02/15/25 12:44 Height 5 ft 4 in Weight 219 lb 2 oz BMI 37.6 Body Fat % 34.5 Body Fat Mass 75.6 Fat Free Mass 143.6 Visceral Fat Rating 8 Body Water % 46.7 Body Water Mass 102.2 Basal Metabolic Rate/Score 1,951 Intake Visit Reasons: [employer] *SEE COMMENTS* Allergies ketorolac Allergy (Unknown, Verified 02/15/25 11:58) rash From Toradol Allergy (Unknown, Uncoded 02/15/25 11:58) HIVES Medication List - Last Reconciled 02/15/25 by Jesús Todd MD flash glucose scanning reader (FreeStyle Magdalena 2 Hayden) As directed flash glucose sensor (FreeStyle Magdalena 2 Sensor kit) As directed metoprolol tartrate 100 mg PO BID ondansetron HCl 4 mg PO Q8H PRN tramadol 50 mg PO BID PRN 30 days HPI HPI [employer] *SEE COMMENTS*: Details: Start time: 11.40am, End time: 12.10pm and 12.40pm to 12.50pm ?I spent 25 minutes speaking with the patient on the phone plus an additional 15 minutes reviewing and updating records for a total of 40 minutes HPI Comments Details: Previous weight loss efforts: has lost 55lbs the last one year with [facility] Wakes up: 6am, Sleeps: 10pm Breakfast: 7.30am (eggs with crackers) Lunch: 12pm (chicken wrap, salad, fruit salad with yogurt) Dinner: 5pm (meat, beans, vegetables) Snacks: 10am (apple or yogurt) Exercise: Has a home treadmill Beverages: Coffee: none, tea: none, soda: none, juice: rarely, ETOH: none PFSH Medical History (Updated 02/15/25 @ 12:03 by Jesús Todd MD) GERD (gastroesophageal reflux disease) BMI 35.0-35.9,adult Adenopathy Obesity Vitamin D deficiency Multinodular thyroid Hyperparathyroidism Surgical History History of hysteroscopy Hx laparoscopic cholecystectomy Hx of section Hx of tubal ligation Family History (Updated 05/30/24 @ 07:04 by Rainer Portillo PA-C) Father AIDS Arthritis CVD (cardiovascular disease) Hypertension Stroke Asthma Mother Diabetes Arthritis Hypertension Obesity Heart attack CVD (cardiovascular disease) Asthma Chronic mental illness Adult hypothyroidism Maternal Aunt Breast cancer Maternal Aunt Breast cancer Son No problems noted. Daughter No problems noted. Brother No problems noted. Social History Housing: House Alcohol intake: never Patient Tobacco Use Status: Former Tobacco user Cigarettes Per Day: 1 Years Smoked: 3 Advance Directives Date on File: 04/17/21 service: No Current occupational status: unemployed Current occupation: right hand dominant Sexual orientation: Straight/Heterosexual Gender identity: Female Female Reproductive History Menstrual Age of Menarche: 11 Telehealth Telehealth Telehealth Platform: Telephone Location of provider rendering services: practice address Location of patient: address on file Patient Identification confirmed using: Name, : Yes Telehealth method: voice only Patient verbally consented to treatment: Yes Patient verbally consented to billing insurance company: Yes Patient informed of any privacy concerns related to visit: Yes Minutes spent on Phone/Video with Pt.: 40 Assessment & Plan Assessment & Plan (1) Obesity: Code(s): E66.9 - Obesity, unspecified Category: Medical Qualifiers: Body mass index: BMI 45.0-49.9 Obesity classification: adult class 3 (BMI >= 40) Obesity type: due to excess calories Serious obesity comorbidity presence: with serious comorbidity Qualified Code(s): E66.01 - Morbid (severe) obesity due to excess calories; Z68.42 - Body mass index [BMI] 45.0-49.9, adult Plan: 1. We discussed in detail the available therapeutic options: 1) our lifestyle intervention program that has an average weight loss of 10% in 3 months.? 2) Weight loss medications. 3) We also discussed about the lap sleeve gastrectomy. I emphasized the importance of close follow-up, adherence to instructions and good communication. The surgery does not replace the need to change your lifestlyle which is the cause of the obesity problem. The surgery provides the motivation to try again to change your lifestyle, it reduces the appetite and make the transition to a better lifestyle easier and doubles the amount of weight you would lose compared to doing the lifestyle change without the surgery. You will need to be on a liquid diet with protein shakes for 2 weeks before surgery to maximize weight loss and boost your nutritional status to recover better from surgery and also for the first two weeks after surgery to let the stomach heal before we introduce other foods. After the first 2 weeks we will introduce protein bars and soft foods like scrambled eggs, cottage cheese and yogurt and after the 6th week will introduce meat, fish and cooked vegetables in small amounts. Over time you should be able to eat everything in small amounts. Side effects like nausea, vomiting, heartburn or abdominal pain are not common in the practice unless you are not following in the practice. This operation requires lifetime commitment to following in our practice and communication with me. You will much less weight and experience side effects if you don?t communicate or not following in the practice. Complications are rare and in our practice is about 1/10 of the national average. The patient is interested in bariatric surgery. She will call her insurance first to determine if bariatric surgery is a covered benefit and she will let me know so we can decide the next steps.
[2025-02-15 12:44] VITALS: BMI 37.6
== END 2025-02-15 12:51 | disposition home or self-care (01) ==
LOC: HO.HBS 08:06
PROVIDERS: PCP Physician Assistant; Visit Provider Surgery
DX: E66.01 Morbid (severe) obesity due to excess calories (principal); Z68.42 Body mass index [BMI] 45.0-49.9, adult; E66.813 Obesity, class 3
CPT/HCPCS: 99203

== ENCOUNTER → 2025-02-15 08:06 | Outpatient (BNVA) | payer MEDICARE, SELFPAY | PROVIDERS: PCP Physician Assistant; Visit Provider Surgery ==

== ENCOUNTER 2025-03-10 10:09 | Day surgery (SDC) | payer MEDICARE, SELFPAY ==
--- NOTE | 2025-03-09 13:59 | HO.ANESPROP2 ---
Documented by User: Fadia Reinoso NP 03/09/25 13:59 HPI - Anesthesia Eval Consult details Narrative: 44yo F for Upper Endoscopy Anesthesia Pre-Procedure Meds Is the patient on any of the following meds?: GLP1/DPP4 PMFSH Active Problems Active Problems: All Active Problems GERD (gastroesophageal reflux disease) (Acute) BMI 35.0-35.9,adult (Acute) Obesity (BMI 30.0-34.9) (Acute) HAYDEE (obstructive sleep apnea) (Acute) Anxiety (Acute) Right shoulder tendonitis (Acute) Witnessed episode of apnea (Acute) Breast cancer screening (Acute) Colon cancer screening (Acute) Annual physical exam (Acute) Recurrent UTI (Acute) Thyroiditis (Acute) Right shoulder pain (Acute) Low back pain (Acute) Allergic reaction (Acute) Vaginitis (Acute) Grief reaction (Acute) LLQ abdominal pain (Acute) Left carpal tunnel syndrome (Acute) Right carpal tunnel syndrome (Acute) Left Achilles tendinitis (Acute) Right ankle sprain (Acute) Osteoarthritis of right patellofemoral joint (Acute) Diabetes (Acute) Right knee pain (Acute) Helicobacter pylori gastritis (Acute) Pruritus of scalp (Acute) Joint pain in both hands (Acute) Pelvic pain (Acute) Lump of skin of right lower extremity (Acute) Polyarthritis (Acute) Cough (Acute) MDD (major depressive disorder), recurrent episode, moderate (Acute) Carpal tunnel syndrome on both sides (Acute) Amenorrhea (Acute) Obesity (Acute) Bilateral hand pain (Acute) Asthma (Acute) Microscopic hematuria (Acute) Pelvic pain (Acute) Osteoarthritis of hands, bilateral (Acute) Left upper quadrant abdominal pain (Acute) Skin lump of arm (Acute) Synovial cyst of popliteal space [[place]], right knee (Acute) Lymphadenitis (Acute) HTN (hypertension) (Acute) Cervicalgia (Acute) Vitamin D deficiency (Acute) Multinodular thyroid (Acute) Hyperparathyroidism (Acute) Past Medical History Medical History GERD (gastroesophageal reflux disease) BMI 35.0-35.9,adult Adenopathy Obesity Vitamin D deficiency Multinodular thyroid Hyperparathyroidism Family History Family History Father AIDS Arthritis CVD (cardiovascular disease) Hypertension Stroke Asthma Mother Diabetes Arthritis Hypertension Obesity Heart attack CVD (cardiovascular disease) Asthma Chronic mental illness Adult hypothyroidism Maternal Aunt Breast cancer Maternal Aunt Breast cancer Son No problems noted. Daughter No problems noted. Brother No problems noted. Surgical History Surgical History History of hysteroscopy Hx laparoscopic cholecystectomy Hx of section Hx of tubal ligation Social History Social History Housing: House Alcohol intake: never Patient Tobacco Use Status: Former Tobacco user Cigarettes Per Day: 1 Years Smoked: 3 Advance Directives: No Advance Directives Information Provided: Yes Advance Directives Date on File: 04/17/21 service: No Current occupational status: unemployed Current occupation: right hand dominant Sexual orientation: Straight/Heterosexual Gender identity: Female Meds Allergies Allergy/AdvReac Type Severity Reaction Status Date / Time ketorolac Allergy Unknown rash Verified 03/10/25 10:38 From Toradol Allergy Unknown HIVES Uncoded 03/10/25 10:38 Assessment and Plan Assessment Anesthesia Assessment: Chart Reviewed Documented by User: Jane Starks MD 03/10/25 10:40 PMFSH Past Medical History Medical History GERD (gastroesophageal reflux disease) BMI 35.0-35.9,adult Adenopathy Obesity Vitamin D deficiency Multinodular thyroid Hyperparathyroidism Family History Family History Father AIDS Arthritis CVD (cardiovascular disease) Hypertension Stroke Asthma Mother Diabetes Arthritis Hypertension Obesity Heart attack CVD (cardiovascular disease) Asthma Chronic mental illness Adult hypothyroidism Maternal Aunt Breast cancer Maternal Aunt Breast cancer Son No problems noted. Daughter No problems noted. Brother No problems noted. Family history of problems with anesthesia: No Surgical History Surgical History History of hysteroscopy Hx laparoscopic cholecystectomy Hx of section Hx of tubal ligation History of Problems with Anesthesia: No Social History Social History Housing: House Alcohol intake: never Patient Tobacco Use Status: Former Tobacco user Cigarettes Per Day: 1 Years Smoked: 3 Advance Directives: No Advance Directives Information Provided: Yes Advance Directives Date on File: 04/17/21 service: No Current occupational status: unemployed Current occupation: right hand dominant Sexual orientation: Straight/Heterosexual Gender identity: Female Meds Allergies Allergy/AdvReac Type Severity Reaction Status Date / Time ketorolac Allergy Unknown rash Verified 03/10/25 10:38 From Toradol Allergy Unknown HIVES Uncoded 03/10/25 10:38 Exam Airway Mallampati Class: I (edentulous) TM Dist: >3cm Neck ROM: Full Heart: rrr Lungs: cta Assessment and Plan Assessment Anesthesia Assessment: Anesthesia Plan Discussed Final Anesthetic Review Family History of Problems with Anesthesia: No History of Problems with Anesthesia: No NPO: Yes ASA Class: III Final Preanesthetic Review: No Changes in Pt Med Stat, Meds/Allgs Chart Reviewed and Consent Obtained/Reviewed Patient Risk: Intermediate Procedure Risk: Intermediate Anesthetic Plan Anesthetic Plan: MAC: Disposition: Standard PACU
--- OUTSIDE RECORDS SUMMARY | 2025-03-09 14:04 | XMS_ITS | Clinical Summary ---
Author Organization [employer] Address [address] [place] [address] Care Team Providers Care Emery Grinder Name Role Phone Unavailable Primary Care Provider [...] patient's age to complete this topic Meningococcal B Vaccine Aged Out No l onger eligible based on patient's age to complete [...] Most Recently Relevant to Health Maintenance Insurance [facility] MEDICAID STAND ADULT
[2025-03-10 10:56] VITALS: BP 137/83; PULSE 71; RESP 14; TEMP 36.6; O2SAT 99; BMI 33.8
[2025-03-10] MEDS: Lactated Ringers 1,000 ML 100 ML IVCONT (11:01)
--- NOTE | 2025-03-10 11:19 | MHC.SHP ---
Pre-Procedural Eval Section A - 24 Hr Update-Section A only Date of Service: 03/10/25 The patient is an INPATIENT: No The patient has been examined within 24 hours of the surgical procedure. The History & Physical has been completed within 30 days and I have reviewed it.: Yes Section B - Complete if H&P > 30 days Chief Complaint: Morbid (severe) obesity due to excess calories Details of Present Illness: GERD Relevant Family History (Specify if Yes): No Relevant Social History: None Present Medications: None Medical History: No relevant PMH History of Previous Operations: No relevant previous surgery Allergies: Allergies Allergy/AdvReac Type Severity Reaction Status Date / Time ketorolac Allergy Unknown rash Verified 03/10/25 10:38 From Toradol Allergy Unknown HIVES Uncoded 03/10/25 10:38 Review of Systems Sugical H&P ROS: Negative: Constitution, Cardiovascular, Respiratory, Neurological, Psychiatric, Hem-Onc, Allergic/Immunologic, Gastrointestinal, Genitourinary, Musculoskeletal, Integumentary, Endocrine and Eyes/Ears/Nose/Throat Exam Surgical H&P Exam: Normal: HEENT, Normal: Heart, Normal: Lungs, Normal: Extremities, Normal: Abdomen, Normal: Skin and Normal: Neurological Plan Diagnosis/Plan: Unchanged (EGD to assess etiology of GERD. Risks of bleeding and perforation were discussed with the patient and she is in agreement with the plan.) I have reviewed the history and physical and performed a pertinent physical examination on my patient. No changes have occurred unless specified. Time Spent With Patient Time: Total time managing care of this patient today ____ minutes.
--- NOTE | 2025-03-10 11:23 | PM.OP ---
Brief Operative Note Date of Service: 03/10/25 Pre-op diagnosis: GERD Post-op diagnosis: same Procedure: PROCEDURE DATE: 03/10/2025 PREOPERATIVE DIAGNOSIS: GERD POSTOPERATIVE DIAGNOSIS: ?Same as above. 1) Incomplete endoscopy due to food contents, grossly normal PROCEDURE: Esophago-gastroscopy with biopsies Surgeon: ?Rocky Todd M.D.. Ph.D. Career Technical Education Instructor: None ? Anesthesia: IV sedation Estimated blood loss: ?Minimal FINDINGS AND PROCEDURE: ? OPERATIVE INDICATIONS: ?The patient is a 44 year old female known to me who is interested in bariatric surgery. The patient has GERD. Based on this information I recommended an upper endoscopy to evaluate the patient's symptoms. Risks and complications of the surgery were discussed with the patient in advance particularly the possibility of perforation or bleeding that may require surgical intervention. The patient understood the risks and was in agreement with the plan. ? PROCEDURE: After informed consent was obtained by the patient, the patient was ?transferred to the Operating Room and was placed in the supine position.? After successful induction of IV sedation, a mouth block was inserted and the patient was placed in the left lateral decubitus position. An upper endoscopy was performed next, the oropharynx and esophagus appeared within the normal limits. There was no hiatal hernia. The z-line was smooth. One biopsy was obtained from the GE junction. The stomach was entered and it appeared to be of normal size. There was a moderate amount of food contents. As a result, the stomach could not be thoroughly examined. In addition, the duodenum was not accessed and no retroflexion was performed. There was no gastritis at the proximal stomach. There was no stricture or ulcer. A biopsy was obtained from the fundus. No significant bleeding was noted from any of the biopsy sites. At that point the stomach were decompressed and the scope was withdrawn from the patient's mouth. The patient extubated and was transferred in stable condition to the Recovery Room for further care. I was present and performed all steps of the procedure. There were no residents to assist with this case. Rocky Todd M.D., Ph.D. Surgeon: Jesús Todd MD Anesthesia: MAC Was an Career Technical Education Instructor used for this Procedure?: No Estimated blood loss (mL): 0 IV fluids (mL): 400 Urine output (mL): 0 (No Diaz to record output) Pathology: other (1) fundus x1, 3) GE junction x1) Condition: stable Disposition: PACU
[2025-03-10 11:43] VITALS: BP 113/88; PULSE 75; RESP 16; TEMP 36.2; O2SAT 98
[2025-03-10 11:58] VITALS: BP 133/70; PULSE 68; RESP 16; TEMP 36.2; O2SAT 97
== END 2025-03-10 12:26 | disposition home or self-care (01) ==
PROVIDERS: PCP Physician Assistant; Visit Provider Surgery
PROC: 0DJ08ZZ Inspection of Upper Intestinal Tract, Via Natural or Artificial Opening Endoscopic (ICD-10-PCS; CPT 43235; principal; 2025-03-10 11:00)
DX: K21.9 Gastro-esophageal reflux disease without esophagitis (principal); T18.2XXA Foreign body in stomach, initial encounter; W44.F3XA Food entering into or through a natural orifice, initial encounter; E66.01 Morbid (severe) obesity due to excess calories; Z68.42 Body mass index [BMI] 45.0-49.9, adult; R59.9 Enlarged lymph nodes, unspecified; E04.2 Nontoxic multinodular goiter; E55.9 Vitamin D deficiency, unspecified; E21.3 Hyperparathyroidism, unspecified; Z79.85 Long-term (current) use of injectable non-insulin antidiabetic drugs; Z79.899 Other long term (current) drug therapy; Z88.8 Allergy status to other drugs, medicaments and biological substances; Z90.49 Acquired absence of other specified parts of digestive tract; Z98.51 Tubal ligation status; Z56.0 Unemployment, unspecified
CPT/HCPCS: 43239; 88305; 88313; 88342; J2003; J2704

== ENCOUNTER → 2025-03-10 10:09 | Outpatient (BNV) | payer MEDICARE, SELFPAY | PROVIDERS: PCP Physician Assistant; Visit Provider Surgery | DX: K21.9 Gastro-esophageal reflux disease without esophagitis (principal) | CPT/HCPCS: 43239 ==

== ENCOUNTER → 2025-04-04 11:12 | Outpatient (AMB) | payer MEDICARE, SELFPAY ==
--- NOTE | 2025-04-04 11:05 | MHC.WMTHER ---
Intake Intake Visit Reasons: TV BH Intake Allergies ketorolac Allergy (Unknown, Verified 03/10/25 10:38) rash From Toradol Allergy (Unknown, Uncoded 03/10/25 10:38) [facility] Medical History (Updated 03/29/25 @ 21:20 by Jesús Todd MD) GERD (gastroesophageal reflux disease) BMI 35.0-35.9,adult Adenopathy Obesity Vitamin D deficiency Multinodular thyroid Hyperparathyroidism Surgical History History of hysteroscopy Hx laparoscopic cholecystectomy Hx of section Hx of tubal ligation Family History Father AIDS Arthritis CVD (cardiovascular disease) Hypertension Stroke Asthma Mother Diabetes Arthritis Hypertension Obesity Heart attack CVD (cardiovascular disease) Asthma Chronic mental illness Adult hypothyroidism Maternal Aunt Breast cancer Maternal Aunt Breast cancer Son No problems noted. Daughter No problems noted. Brother No problems noted. Social History Housing: House Are you a primary healthcare specialist to a significant other at home: No Do you presently have visiting nurse or other home services: No Alcohol intake: never Patient Tobacco Use Status: Former Tobacco user Cigarettes Per Day: 1 Years Smoked: 3 Advance Directives Date on File: 04/17/21 service: No Current occupational status: unemployed Current occupation: right hand dominant Sexual orientation: Straight/Heterosexual Gender identity: Female Female Reproductive History Menstrual Age of Menarche: 11 Behavioral Health Assessment Weight Management Therapy Therapy Notes Details The patient is a 45-year-old female presenting for an initial visit to begin a behavioral health assessment as part of a surgical weight loss program. The patient was referred to the program by their primary care physician. Since having her first child at age 13, she has weighed over 200 lbs and has expressed dissatisfaction with her appearance. Presenting Concerns Referral Source WMP-Provider. Reason for referral Completion of behavioral health assessment as part of process for weight-loss surgery. Precipitating Event Obesity and other medical conditions. Living Situation Current Living Situation Rent At risk of losing current housing? No Satisfied with current living situation? Yes Comments PT lives with her 2 daughters and her ex-mother in law (PT has guardianship of her due to dementia). Social History Family history and relationship PT reports she is a single mother, never . She has 5 children. Her oldest son is 30, and then 4 girls, they are 26, 23, 19, 14. Father is , her mother is alive. She has 2 brothers, she is the oldest. PT reports he has good family relationships at this time. Parental/Familial arc trimmer obligations 2 younger daughters at home. She also has guardianship of her ex-mother in law due to dementia. Developmental history and status None reported, currently WNL. Social support Her mother and brother who had weight-loss surgery. Children. Some friends. Community support Pastors. PCP Adventist/Spirituality Rastafari. Cultural/Ethnic information . Born in [place], her parents are from [place]. Legal Involvement and History Current or historical involvement with the legal system? None. Education Highest grade completed HS. Doctorate in [employer]. - [employer] in [place]. Preferred learning style Auditory, Written and Visual Currently enrolled in educational program? No Interested in further educational program? No Educational Interests/Skills PT would like to become a youth counselor and be engaged in the community. Employment Employment Status Unemployed (Since September/2024. 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 ) Meaningful activities Decorate, community activities. Financial Situation Describe current financial situation Comfortable Financial assistance? Food [employer], SSI, Disability and Other (Health insurance.) Service Service? No Mental Health and Addiction Treatment Current/Past substance abuse? No Comments Alcohol: none Cigarettes/Tobacco: none Cannabis/Edibles: none. Current/Past addictive behavior concerns? No Psychiatric history No MH history of any type. PT clarified that despite on her record there is a Dx of MDD this was not true, she was having a hard time dealing with medical issues. Medical and Physical Health Summary Additional Medical History not covered in history None. Sexual History concerns None reported. Physical exam in the last year? Yes Pain Screening Current pain? Yes Pain in the last few months? Yes Questionnaires PHQ-9 Over the last 2 weeks, how often have you been bothered by any of the following problems? 1. Little interest or pleasure in doing things: not at all 2. Feeling down, depressed, or hopeless: not at all 3. Trouble falling or staying asleep, or sleeping too much: more than half the days 4. Feeling tired or having little energy: several days 5. Poor appetite or overeating: not at all 6. Feeling bad about yourself - or that you are a failure or have let yourself or your family down: not at all 7. Trouble concentrating on things, such as reading the newspaper or watching television: not at all 8. Moving or speaking so slowly that other people could have noticed. Or the opposite - being so fidgety or restless that you have been moving around a lot more than usual: not at all 9. Thoughts that you would be better off or of hurting yourself in some way: not at all Total score: 3 Depression Screening Interpretation: Negative (From new PT pack completed on 01/06/25.) Depression Screening Done: Yes Source: Developed by Drs. Néstor Arias, Salima Magdaleno, Cm Patel and colleagues, with an educational robert from [employer]. Binge Eating Scale Group 1 A. I don't feel self-conscious about my wt. or body size when I'm with others. B. I feel concerned about how I look to others, but it normally does not make me fell disappointed with myself C. I do get self-conscious about my appearance and wt. which makes me feel disappointed in myself. D. I feel very self-conscious about my wt. and frequently I feel intense shame and disgust for myself. I try to avoid social contacts because of my self-consciousness. Response Group 1: B Group 2 A. I don't have any difficulty eating slowly in the proper manner. B. Although I seem to gobble down foods, I don't end up feeling stuffed because of eating to much. C. At times, I tend to eat quickly and then, I feel uncomfortably full afterwards. D. I have the habit of bolting down my food, without really chewing it. When this happens I usually feel uncomfortably stuffed because I've eaten to much. Response Group 2: A Group 3 A. I feel capable to control my eating urges when I want to. B. I feel like I have failed to control my eating more than the average person. C. I feel utterly helpless when it comes to feeling in control of my eating urges. D. Because I feel so helpless about controlling my eating I have become very desperate about trying to get control. Response Group 3: A Group 4 A. I don't have the habit of eating when I'm bored. B. I sometimes eat when I'm bored, but often I'm able to get busy and get my mind off food. C. I have a regular habit of eating when I'm bored, but occasionally, I can use some other activity to get my mind off eating. D. I have a strong habit of eating when I'm bored. Nothing seems to help me breath the habit. Response Group 4: A Group 5 A. I'm usually physically hungry when I eat something. B. Occasionally, I eat something on impulse even though I really am not hungry. C. I have the regular habit of eating foods, that I might not really enjoy, to satisfy a hungry feeling even though physically, I don't need the food. D. Although I'm not physically hungry, I get a hungry feeling in my mouth that only seems to be satisfied when I eat a food, like sandwich, that fills my mouth. Sometimes, when I eat the food to satisfy my mouth hunger, I then spit the food out so I won't gain weight. Response Group 5: C Group 6 A. I don't feel any guilt or self-hate after I overeat. B. After I overeat, occasionally I feel guilt or self-hate. C. Almost all the time I experience strong guilt or self-hate after I overeat. Response Group 6: B Group 7 A. I don't lose total control of my eating when dieting even after periods when I overeat. B. Sometimes when I eat a forbidden food on a diet, I feel like I blew it and eat even more. C. Frequently, I have the habit of saying to myself, I've blown it now, why not go all the way, when I overeat on a diet. When that happens I eat more. D. I have a regular habit of starting a strict diets for myself but I break the diets by going on an eating binge. My life seems to be either a feast or famine. Response Group 7: D Group 8 A. I rarely eat so much food that I feel uncomfortably stuffed afterwards. B. Usually about once a month, I each such a quantity of food, I end up feeling very stuffed. C. I have regular periods during the month when I eat large amounts of food, either at mealtime or at snacks. D. I eat so much food that I regularly feel quite uncomfortable after eating and sometimes a bit nauseous. Response Group 8: A Group 9 A. My level of calorie intake does not go up very high or go down very low on a regular basis. B. Sometimes after I overeat, I will try to reduce my caloric intake to almost nothing to compensate for the excess calories I've eaten. C. I have a regular habit of overeating during the night. It seems that my routine is not to be hungry in the morning but overeat in the evening. D. In my adult years, I have had week-long periods where I practically starve myself. This follows periods when I overeat. It seems I live a life of either feast or famine. Response Group 9: A Group 10 A. I usually am able to stop eating when I want to. I know when enough is enough. B. Every so often, I experience a compulsion to eat which I can't seem to control. C. Frequently, I experience strong urges to eat which I seem unable to control, but at other times I can control my eating urges. D. I feel incapable of controlling urges to eat. I have a fear of not being able to stop eating voluntarily. Response Group 10: A Group 11 A. I don't have any problem stopping eating when I feel full. B. I usually can stop eating when I feel full but occasionally overeat leaving me feeling uncomfortably stuffed. C. I have a problem stopping eating once I start and usually I feel uncomfortably stuffed after I eat a meal. D. Because I have a problem not being able to stop eating when I want, I sometimes have to induce vomiting to relieve my stuffed feeling. Response Group 11: A Group 12 A. I seem to eat just as much when I'm with others, Family social gatherings as when I'm by myself. B. Sometimes, when I'm with other persons, I don't eat as much as I want to eat because I'm self-conscious about my eating. C. Frequently, I eat only a small amount of food when others are present, because I'm very embarrassed about my eating. D. I feel so ashamed about overeating that I pick times to overeat when I know no one will see me. I feel like a closet eater. Response Group 12: B Group 13 A. I eat three meals a day with only an occasional between meal snack. B. I eat 3 meals a day, but I also normally snack between meals. C. When I am snacking heavily, I get in the habit of skipping regular meals. D. There are regular periods when I seem to be continually eating, with no planned meals. Response Group 13: B Group 14 A. I don't think much about trying to control unwanted eating urges. B. At least some of the time, I feel my thoughts are pre-occupied with trying to control my eating urges. C. I feel that frequently I spend much time thinking about how much I ate or about trying not to eat anymore. D. It seems to me that most of my waking hours are pre-occupied by thoughts about eating or not eating. I feel like I'm constantly struggling not to eat. Response Group 14: B Group 15 A. I don't think about food a great deal. B. I have strong craving for food but they last only for brief periods of time. C. I have days when I can't seem to think about anything else but food. D. Most of my days seem to be pre-occupied with thoughts about food. I feel like I live to eat. Response Group 15: B Group 16 A. I usually know whether or not I'm physically hungry. I take the right portion of food to satisfy me. B. Occasionally, I feel uncertain about knowing whether or not I'm physically hungry. A these times it's hard to know how much food I should take to satisfy me. C. Even though I might know how many calories I should eat, I don't have any idea what is a normal amount of food for me. Response Group 16: A Binge Eating Score: 11 Score less than 17 Minimal Risk Score between 18-26 Moderate Risk Score between 27-46 High Risk Assessment & Plan Assessment & Plan (1) Adjustment disorder: Code(s): F43.20 - Adjustment disorder, unspecified Qualifiers: Adjustment disorder type: unspecified type Qualified Code(s): F43.20 - Adjustment disorder, unspecified (2) Pre-bariatric surgery psychological evaluation: Code(s): Z71.89 - Other specified counseling Plan The patient has not yet been cleared, as the assessment was not completed today. She will return in 2 weeks to continue the evaluation. Next appointment: 04/19/2025 at 11am, Telehealth. Telehealth Telehealth Telehealth Platform: [employer] Location of provider rendering services: other (Home office. [place], [place]) Location of patient: address on file Patient Identification confirmed using: Name, : Yes Telehealth method: voice only Patient verbally consented to treatment: Yes Patient verbally consented to billing insurance company: Yes Patient informed of any privacy concerns related to visit: Yes Minutes spent on Phone/Video with Pt.: 55 Coding Level of Care Code New Pt Tele Psy Diag Jose ([id number]) Patient Type New Diagnoses Adjustment disorder, unspecified type F43.20 Adjustment disorder type: unspecified type Pre-bariatric surgery psychological evaluation Z71.89 Time Spent (min) 55
--- OUTSIDE RECORDS SUMMARY | 2025-04-04 13:25 | XMS_ITS | Clinical Summary ---
Author Organization [employer] Address [address] [place] [address] Care Team Providers Care Rehabilitation Coordinator Name Role Phone Unavailable Primary Care Provider [...] Screening 1979 SDOH Screening 1979 Sigmoidoscopy 1979 Disability Screening 1979 Alcohol/Substance Use Screening 1991 Tobacco Screening [...] - 2023-2 5 season) 2024 Influenza Vaccine (Season Ended) 2025 Zoster Vaccines (1 of 2) 2029 RSV [...] Most Recently Relevant to Health Maintenance Insurance [facility] MEDICAID STAND ADULT
== END ==
LOC: HO.HBST 11:12
PROVIDERS: PCP Physician Assistant; Visit Provider Counselor Mental Health
DX: F43.20 Adjustment disorder, unspecified (principal); Z71.89 Other specified counseling
CPT/HCPCS: 90791

== ENCOUNTER 2025-07-03 08:57 | Outpatient (AMB) | payer MEDICARE, SELFPAY ==
--- NOTE | 2025-07-03 09:00 | MHC.PC.OV ---
Vital Signs 07/03/25 09:01 Height 5 ft 6 in Weight 192 lb BMI 31.0 BP 122/96 H Blood Pressure Location Lt brachial Position Sitting Respiration 18 Pulse 74 Pulse Source Pulse Oximeter Temp 97.1 F Temp Source Temporal Artery Scan Pulse Oximetry (%) 95 Oxygen Delivery Method Room Air Intake Visit Reasons: Swelling of eyes and Thyroid isses Hospital Wellness Coordinator Required: No Accompanied by: Self / Same As Patient Allergies ketorolac Allergy (Unknown, Verified 07/03/25 09:24) rash From Toradol Allergy (Unknown, Uncoded 07/03/25 09:24) HIVES Medication List - Last Reconciled 07/03/25 by ANGIE Vizcaino flash glucose scanning reader (FreeStyle Magdalena 2 Chrisman) As directed flash glucose sensor (FreeStyle Magdalena 2 Sensor kit) As directed metoprolol tartrate 100 mg PO BID ondansetron HCl 4 mg PO Q8H PRN tirzepatide (weight loss) (Zepbound) 10 mg (0.5 mL) subcut QWEEK tirzepatide (weight loss) (Zepbound) 12.5 mg (0.5 mL) subcut QWEEK tramadol 50 mg PO BID PRN 30 days Tobacco use date assessed: 07/03/25 Dental Screening Dental Screen Date: 07/03/25 Did you have a dental visit in the last 12 months?: Yes Did you have a dental problem in the last 6 months where you did not have access to dental care?: No Was dental information given to patient?: Patient has dentist HPI Swelling of eyes and Thyroid isses HPI Details The patient is a 45-year-old female presenting with concerns related to thyroid disorder and associated symptoms. She reports significant swelling of the thyroid gland, which has been persistent for three weeks, causing bulging eyes and difficulty swallowing. The patient experiences rapid heart rate, excessive sweating at night, and sleep disturbances, including waking up drenched in sweat. The patient has a history of headaches, which are exacerbated by light and sound, requiring her to rest in a dark room. She has been managing these with rptp-[id number]-[id number] medications like ibuprofen and Tylenol, although they provide limited relief. The patient has a family history of cardiovascular disease, with her father having of a heart attack at 45 and her mother having experienced multiple strokes. She is concerned about a previously diagnosed heart murmur and seeks further evaluation. [facility] Medical History GERD (gastroesophageal reflux disease) BMI 35.0-35.9,adult Adenopathy Obesity Vitamin D deficiency Multinodular thyroid Hyperparathyroidism Surgical History History of hysteroscopy Hx laparoscopic cholecystectomy Hx of section Hx of tubal ligation Family History Father AIDS Arthritis CVD (cardiovascular disease) Hypertension Stroke Asthma Mother Diabetes Arthritis Hypertension Obesity Heart attack CVD (cardiovascular disease) Asthma Chronic mental illness Adult hypothyroidism Maternal Aunt Breast cancer Maternal Aunt Breast cancer Son No problems noted. Daughter No problems noted. Brother No problems noted. Social History Housing: House Are you a primary child day care provider to a significant other at home: No Do you presently have visiting nurse or other home services: No Alcohol intake: never Patient Tobacco Use Status: Former Tobacco user Cigarettes Per Day: 1 Years Smoked: 3 e-Cigarette/Vaping Use: Never Used Advance Directives Date on File: 04/17/21 service: No Current occupational status: unemployed Current occupation: right hand dominant Sexual orientation: Straight/Heterosexual Gender identity: Female Cognitive needs: No Hearing needs: No Vision needs: No Female Reproductive History Menstrual Age of Menarche: 11 Questionnaire PHQ-9 Over the last 2 weeks, how often have you been bothered by any of the following problems? 1. Little interest or pleasure in doing things: not at all 2. Feeling down, depressed, or hopeless: nearly every day 3. Trouble falling or staying asleep, or sleeping too much: nearly every day 4. Feeling tired or having little energy: nearly every day 5. Poor appetite or overeating: nearly every day 6. Feeling bad about yourself - or that you are a failure or have let yourself or your family down: not at all 7. Trouble concentrating on things, such as reading the newspaper or watching television: nearly every day 8. Moving or speaking so slowly that other people could have noticed. Or the opposite - being so fidgety or restless that you have been moving around a lot more than usual: nearly every day 9. Thoughts that you would be better off or of hurting yourself in some way: not at all Total score: 18 Depression Screening Interpretation: Positive Depression Screening Done: Yes 90514 - PHQ-9 Billing: Yes Source: Developed by Drs. Néstor Arias, Salima Magdaleno, Cm Patel and colleagues, with an educational robert from [employer] Thrive Questionnaire Date Thrive assessed: 07/03/25 I am a: Patient What is your living situation today?: I have a steady place to live Within the past 12 months, did the food you bought not last and you didn't have the money to get more?: Never true Within the past 12 months, did you worry whether your food would run out before you got money to buy more?: Never true Do you have trouble paying for medicines?: I choose not to answer this question Do you have trouble getting transportation to medical appointments?: Yes Do you have trouble paying your heating and electricity bill?: No Do you have trouble taking care of your child, family member or friend?: No Do you have trouble with day-to-day activities such as bathing, preparing meals, shopping, managing finances, etc.?: No Are you currently unemployed and looking for a job?: No Are you interested in more education?: I choose not to answer this question Please select the resources that you would like help with: None Currently or been in a relationship where the following occur: I choose not to answer THRIVE Score: 1 AUDIT C Alcohol Use Questionnaire (AUDIT-C) 1. How often do you have a drink containing alcohol?: Never Total Score: 0 KELLY-7 AMB Questionnaire KELLY-7 Date KELLY - 7 assessed: 07/03/25 Feeling nervous, anxious, or on edge: 3 = Nearly every day Not being able to stop or control worryin = Nearly every day Worrying too much about different things: 3 = Nearly every day Trouble relaxin = Nearly every day Being so restless that it is hard to sit still: 3 = Nearly every day Becoming easily annoyed or irritable: 3 = Nearly every day Feeling afraid as if something awful might happen: 2 = More than half the days Total KELLY-7 score (0-4 normal; 5-9 mild; 10-14 moderate; 15-21 severe): 20 Source: Developed by Drs. Nésotr Arias, Salima Magdaleno, Cm Patel and colleagues, with an educational robert from [employer] KELLY-7 Assessment Billing KELLY-7 Assessment Tool: KELLY-7 Assessment 69647 Review of Systems Const Reports daytime sleepiness, Reports excessive sweating, Reports fatigue, Reports headache(s) (Severe migraines on and off), Reports night sweats and Reports other (Apneic episodes) Eyes Denies loss of vision and Reports other (Intermittent periorbital puffiness) ENT Reports dysphagia, Denies vertigo, Denies dizziness, Reports headache(s) (Severe migraines on and off), Denies sore throat and Reports other (Swollen thyroid) Card Denies chest pain, Reports rapid heart rate, Denies leg edema, Denies lightheadedness and Denies dyspnea Resp Denies cough, Denies hemoptysis, Denies dyspnea and Denies wheezing GI Denies abdominal pain, Denies melena, Denies constipation, Reports dysphagia, Denies diarrhea and Denies vomiting Denies urinary frequency, Denies dysuria and Denies urinary urgency Musc Reports arthralgias (Multiple joint pain), Denies joint swelling, Denies numbness and Denies tingling Neuro Denies Abnormal speech present, Denies behavioral changes, Denies vertigo, Denies dizziness, Reports headache(s) (Severe migraines on and off), Denies loss of vision, Denies memory loss, Denies numbness and Denies tingling Psych Denies anxiety, Denies behavioral changes, Denies depression, Denies memory loss and Denies panic attacks Endo Reports excessive sweating and Reports fatigue Ye/Lymph Denies easy bleeding and Denies easy bruising Aller/Immun Denies wheezing Physical exam (Primary Care) Vital Signs: Last Vital Signs Temp 97.1 F 07/03/25 09:01 Pulse 74 07/03/25 09:01 Resp 18 07/03/25 09:01 BP 122/96 H 07/03/25 09:01 Pulse Ox 95 07/03/25 09:01 Oxygen Delivery Method Room Air 07/03/25 09:01 BMI result Body Mass Index 31.0 Tobacco/Smoking Status: Tobacco use Status Tobacco use date assessed 07/03/25 07/03/25 09:08 Patient Tobacco Use Status Former Tobacco user 07/03/25 09:08 e-Cigarette/Vaping Use Never Used 07/03/25 09:20 PHQ-9: PHQ-9 Score PHQ-9: Total score 18 07/03/25 12:07 Depression Screening Interpretation: Positive Thrive Assessment: Date of Thrive Assessment Date Thrive assessed 07/03/25 07/03/25 09:08 Currently or been in a relationship where the following occur: I choose not to answer Const General: cooperative, healthy appearing, comfortable and no acute distress Nutritional Appearance: well nourished Orientation/consciousness: patient oriented x3 HENMT Head: Yes normocephalic Ears: TM's normal bilaterally General nose exam: Normal nasal mucous membranes and turbinates present Eyes General: appearance normal, both eyes and all related structures Periorbital: periorbital findings normal Conjunctivae: conjunctivae normal Sclerae: sclerae normal Pupils: Equal, round and reactive pupils present Neck Neck: Yes full ROM and Yes anterior neck swelling Thyroid: Thyroid normal and lateral enlargement bilaterally Carotids: no bruits Resp Effort & Inspection: normal respiratory effort Auscultation: clear to auscultation bilaterally, no crackles, no rales, no rhonchi and no wheezes Cardio Rate: regular rate Rhythm: regular rhythm Heart sounds: Murmur heart sound present systolic II/ and normal S1 and S2 GI Palpation (GI): Soft to palpation, nontender, no hepatomegaly and no splenomegaly Auscultation: normal bowel sounds Skin General skin exam: no rashes or lesions noted Neuro General: patient oriented x3 Cranial nerves: Yes Equal, round and reactive pupils present and Yes Nystagmus not present Speech: No Abnormal speech present Gait exam (Neuro): Normal gait present Motor exam (neuro): no tremor noted Extrem General: Yes normal to inspection, Yes full ROM and No edema Right upper extremity: full ROM Left upper extremity: full ROM Right lower extremity: full ROM; no edema Left lower extremity: full ROM; no edema Psych Mental Status: mental status grossly normal Speech and movement: Normal speech and movement present Affect: normal affect Attitude: cooperative Thought process: Normal thought process present Insight: Good insight present (Psych) Judgement: Good judgement present (Psych) Results AMB Hemoglobin A1c AMB Hemoglobin A1c 4.9 % Last Edit by Helen Cardoza MA on 07/03/25 12:11 Coding Level of Care Code Est Pt Level 4 (06474) Diagnoses Hypertension, unspecified type I10 Hypertension type: unspecified Heart murmur R01.1 Thyroiditis E06.9 Hyperparathyroidism E21.3 Obesity (BMI 30.0-34.9) E66.811 Vitamin D deficiency E55.9 Gastroesophageal reflux disease, unspecified whether esophagitis present K21.9 Esophagitis presence: esophagitis presence not specified Impaired fasting glucose R73.01 HAYDEE (obstructive sleep apnea) G47.33 Migraine with status migrainosus, not intractable, unspecified migraine type G43.901 Migraine type: unspecified Status migrainosus presence: with status migrainosus Intractability: not intractable Dysphagia, unspecified type R13.10 Dysphagia type: unspecified Multinodular thyroid E04.2 Polyarthritis M13.0 Additional Codes KELLY-7 Assessment Billing - KELLY-7 Assessment Tool: KELLY-7 Assessment 13807 ([id number]) PHQ-9 - 65334 - PHQ-9 Billing: Yes ([id number]) Time Spent (min) 41 Assessment & Plan Assessment & Plan (1) HTN (hypertension): Code(s): I10 - Essential (primary) hypertension Category: Medical Qualifiers: Hypertension type: unspecified Qualified Code(s): I10 - Essential (primary) hypertension Plan: Blood pressure 122/96 Reinforced low-salt diet Continue metoprolol tartrate 100 mg b.i.d. (2) Heart murmur: Code(s): R01.1 - Cardiac murmur, unspecified Category: Medical Plan: Pressure reports that her father had a [place] at age of 4545 years old and she would like to get her heart evaluated. An echocardiogram ordered to further evaluate (3) Thyroiditis: Code(s): E06.9 - Thyroiditis, unspecified Category: Medical Plan: Thyroid function tests ordered to further evaluate (4) Hyperparathyroidism: Code(s): E21.3 - Hyperparathyroidism, unspecified Category: Medical Plan: PTH and calcium ordered (5) Obesity (BMI 30.0-34.9): Code(s): E66.811 - Obesity, class 1 Category: Medical Plan: Encouraged low-cholesterol diet and increase activity to aid in losing weight (6) Vitamin D deficiency: Code(s): E55.9 - Vitamin D deficiency, unspecified Category: Medical Plan: Continue vitamin-D 3 OTC daily (7) GERD (gastroesophageal reflux disease): Code(s): K21.9 - Gastro-esophageal reflux disease without esophagitis Category: Medical Qualifiers: Esophagitis presence: esophagitis presence not specified Qualified Code(s): K21.9 - Gastro-esophageal reflux disease without esophagitis Plan: Do not eat meals or drink carbonated beverages within 3 hr of bedtime Decrease the amount of fried, fatty, and spicy foods to decrease gastric acid production Raise the head of the bed using 4 to 6-inch blocks, especially if nocturnal symptoms are present Lose weight if indicated; avoid tight-fitting clothing, especially around the waist Avoid foods that relax the Lower esophageal sphincter (chocolate, peppermint, high-fat foods etc.,) (8) Impaired fasting glucose: Code(s): R73.01 - Impaired fasting glucose Category: Medical Plan: A1c 5.6% in office Reinforced low sugar/carbohydrate diet and activity as tolerated (9) HAYDEE (obstructive sleep apnea): Code(s): G47.33 - Obstructive sleep apnea (adult) (pediatric) Category: Medical Plan: Reports increased daytime tiredness and apneic episodes during the nights Home sleep study ordered (10) Migraines: Code(s): G43.909 - Migraine, unspecified, not intractable, without status migrainosus Category: Medical Qualifiers: Migraine type: unspecified Status migrainosus presence: with status migrainosus Intractability: not intractable Qualified Code(s): G43.901 - Migraine, unspecified, not intractable, with status migrainosus Plan: Reports severe migraines, light and sound sensitivity Continue ibuprofen OTC, start magnesium oxide 400 mg at nighttime, vitamin B2 400 mg daily. Sumatriptan 50 mg ordered p.r.n. for severe headaches. (11) Dysphagia: Code(s): R13.10 - Dysphagia, unspecified Category: Medical Qualifiers: Dysphagia type: unspecified Qualified Code(s): R13.10 - Dysphagia, unspecified Plan: The patient has a history of goiter/multiple thyroid nodules. Reports that she had to get this drained in the past at [facility] [place]; however, the doctor retired. Reports that she feels like her neck is swelling up again and she is having some difficulty swallowing. Thyroid ultrasound ordered urgently to further evaluate. (12) Multinodular thyroid: Code(s): E04.2 - Nontoxic multinodular goiter Category: Medical Plan: The patient has a history of goiter/multiple thyroid nodules. Reports that she had to get this drained in the past at [facility] [place]; however, the doctor retired. Reports that she feels like her neck is swelling up again and she is having some difficulty swallowing. Thyroid ultrasound ordered urgently to further evaluate. The patient was also referred urgently to endocrine/Dr. Wong (13) Polyarthritis: Code(s): M13.0 - Polyarthritis, unspecified Category: Medical Plan: Chronic osteoarthritis of multiple joints. Patient is requesting for tramadol to be refilled. Rx refilled Orders: Orders Complete Blood Count Auto Diff Today E04.2 - Nontoxic multinodular goiter, E11.9 - Type 2 diabetes mellitus without complications, E21.3 - Hyperparathyroidism, unspecified, E66.811 - Obesity, class 1, I10 - Essential (primary) hypertension Free T4 (Free Thyroxine) Today E04.2 - Nontoxic multinodular goiter, E11.9 - Type 2 diabetes mellitus without complications, E21.3 - Hyperparathyroidism, unspecified, E66.811 - Obesity, class 1, I10 - Essential (primary) hypertension PTH Intact Intraoperative Today E04.2 - Nontoxic multinodular goiter, E11.9 - Type 2 diabetes mellitus without complications, E21.3 - Hyperparathyroidism, unspecified, E66.811 - Obesity, class 1, I10 - Essential (primary) hypertension CRP High Sensitivity Today E04.2 - Nontoxic multinodular goiter, E11.9 - Type 2 diabetes mellitus without complications, E21.3 - Hyperparathyroidism, unspecified, E66.811 - Obesity, class 1, I10 - Essential (primary) hypertension Erythrocyte Sedimentation Rate Today E04.2 - Nontoxic multinodular goiter, E11.9 - Type 2 diabetes mellitus without complications, E21.3 - Hyperparathyroidism, unspecified, E66.811 - Obesity, class 1, I10 - Essential (primary) hypertension AMB Hemoglobin A1c Today Z13.9 - Encounter for screening, unspecified TSH reflex Free T4 Today E04.2 - Nontoxic multinodular goiter, E11.9 - Type 2 diabetes mellitus without complications, E21.3 - Hyperparathyroidism, unspecified, E66.811 - Obesity, class 1, I10 - Essential (primary) hypertension UA CC w/rflx Micro + Cult Today E04.2 - Nontoxic multinodular goiter, E11.9 - Type 2 diabetes mellitus without complications, E21.3 - Hyperparathyroidism, unspecified, E66.811 - Obesity, class 1, I10 - Essential (primary) hypertension Comprehensive Met. Panel Today E04.2 - Nontoxic multinodular goiter, E11.9 - Type 2 diabetes mellitus without complications, E21.3 - Hyperparathyroidism, unspecified, E66.811 - Obesity, class 1, I10 - Essential (primary) hypertension Vitamin D 25-OH Total Today E04.2 - Nontoxic multinodular goiter, E11.9 - Type 2 diabetes mellitus without complications, E21.3 - Hyperparathyroidism, unspecified, E66.811 - Obesity, class 1, I10 - Essential (primary) hypertension RT home sleep study Today R06.81 - Apnea, not elsewhere classified US thyroid Today E04.2 - Nontoxic multinodular goiter, E06.9 - Thyroiditis, unspecified ALLISON Reflex Titer and Pattern Today M13.0 - Polyarthritis, unspecified CA echo transthoracic complete Today R01.1 - Cardiac murmur, unspecified Referrals Endocrinology Referral E04.2 - Nontoxic multinodular goiter, E06.9 - Thyroiditis, unspecified, E21.3 - Hyperparathyroidism, unspecified Medications: New riboflavin (vitamin B2) 400 mg PO DAILY 90 tabs 3RF sumatriptan succinate take 1 tab at onset of headache; if no relief may repeat 1 tab after at least 2 hrs; max = 4 tabs/24 hr PO 14 tabs 1RF albuterol sulfate 90 mcg/actuation (Ventolin HFA) 2 puffs inhalation Q4-6H PRN 8.5 grams 3RF shortness of breath or wheezing tizanidine 4 mg PO Q8H PRN 30 tabs 1RF muscle spasticity Refilled tramadol 50 mg PO BID PRN 60 tabs 0RF pain 30 days M54.2 - Cervicalgia
[2025-07-03 09:01] VITALS: BP 122/96; PULSE 74; RESP 18; TEMP 36.2; O2SAT 95; BMI 31.0
--- OUTSIDE RECORDS SUMMARY | 2025-07-03 10:03 | XMS_ITS | Clinical Summary ---
Author Organization [employer] Address [address] [place] [address] Care Team Providers Care Casing Trimmer Name Role Phone Unavailable Primary Care Provider [...] COVID-19 Vaccine ( - 2023-2 5 season) 2025 Influenza Vaccine (#1) 2025 Zoster Vaccines (1 of 2) 2029 [...] Years) and At-Risk Patients (6 to 49) Years Aged Out No longer eligible b ased [...] Most Recently Relevant to Health Maintenance Insurance [facility] MEDICAID STAND ADULT
== END 2025-07-03 09:57 | disposition home or self-care (01) ==
LOC: HO.HMCH 08:57
PROVIDERS: PCP Physician Assistant
DX: I10 Essential (primary) hypertension (principal); E66.811 Obesity, class 1; Z68.31 Body mass index [BMI] 31.0-31.9, adult; R01.1 Cardiac murmur, unspecified; E06.9 Thyroiditis, unspecified; E21.3 Hyperparathyroidism, unspecified; E55.9 Vitamin D deficiency, unspecified; K21.9 Gastro-esophageal reflux disease without esophagitis; R73.01 Impaired fasting glucose; G43.901 Migraine, unspecified, not intractable, with status migrainosus; R13.10 Dysphagia, unspecified; Z13.9 Encounter for screening, unspecified

== ENCOUNTER → 2025-07-03 08:57 | Outpatient (BNVA) | payer MEDICARE, SELFPAY | PROVIDERS: PCP Physician Assistant | DX: I10 Essential (primary) hypertension (principal); R01.1 Cardiac murmur, unspecified; E06.9 Thyroiditis, unspecified; E21.3 Hyperparathyroidism, unspecified; E55.9 Vitamin D deficiency, unspecified; K21.9 Gastro-esophageal reflux disease without esophagitis; R73.01 Impaired fasting glucose; G47.33 Obstructive sleep apnea (adult) (pediatric); G43.901 Migraine, unspecified, not intractable, with status migrainosus; R13.10 Dysphagia, unspecified; E04.2 Nontoxic multinodular goiter; M13.0 Polyarthritis, unspecified; E66.811 Obesity, class 1; Z68.31 Body mass index [BMI] 31.0-31.9, adult | CPT/HCPCS: 83036; 96127; 99212 ==

== ENCOUNTER 2025-07-04 10:29 | Outpatient (REF) | payer MEDICARE, SELFPAY ==
[2025-07-04 10:46] LABS: MANUAL DIFF FLAG NO
[2025-07-04 10:56] LABS: Hematocrit 42.9 % (37.0-47.0); Hemoglobin 14.4 g/dl (12.0-16.0); Imm Gran Abs Auto 0.01 X10*3/uL (0.00-0.03); Imm Gran Pct Auto 0.2 % (0.0-0.4); Lymphocytes Absolute Auto 2.5 X10*3/uL (1.2-4.9); Mean Corpuscular HGB Conc 33.6 g/dl (31.0-35.0); Mean Corpuscular Hemoglobin 31.3 pg (27.0-33.0); Mean Corpuscular Volume 93.3 fL (80.0-98.0); NRBC Abs Auto 0.000 X10*3/uL (0.0-0.012); NRBC Pct Auto 0.0 /100WBC (0.0-0.2); Platelet Count 257 X10*3/uL (160-400); Red Blood Count 4.60 X10*6/uL (4.20-5.50); White Blood Count 6.1 X10*3/uL (4.8-10.8)
[2025-07-04 11:11] LABS: Appearance Urine Clear; Glucose Urine UA Negative (Negative); PH 5.5 (5.0-9.0); Specific Gravity - Urine >= 1.030 (1.005-1.025); UMIC TRIGGER UACC YES
[2025-07-04 11:28] LABS: Parathyroid Hormone Intact 131.4 pg/mL (8.7-77.1)
[2025-07-04 11:29] LABS: Alanine Aminotransferase 10 U/L (0-31); Albumin Level 4.6 g/dL (3.5-5.0); Alkaline Phosphatase 42 U/L (39-117); Anion Gap 11 (12-20); Aspartate Amino Transferase 17 U/L (5-31); Blood Urea Nitrogen 14 mg/dL (9-16); Calcium 9.3 mg/dL (8.4-10.2); Carbon Dioxide 23 mmol/L (22-29); Chloride 110 mmol/L (96-108); Estimated Glomerular Filt Rate > 60; Potassium 3.8 mmol/L (3.3-5.1); Sodium 140 mmol/L (135-145); Total Protein 7.9 g/dL (6.5-8.0)
[2025-07-04 11:55] LABS: Free T4 (Free Thyroxine) 0.98 ng/dL (0.71-1.85)
[2025-07-10 09:14] LABS: Anti Nuclear Antibody Screen POSITIVE (NEGATIVE); Anti Nuclear Antibody Titer 1:40 titer
== END 2025-07-04 10:30 | disposition home or self-care (01) ==
LOC: HO.LAB 10:29
PROVIDERS: Absent Provider Physician Assistant; PCP Physician Assistant
DX: Z01.84 Encounter for antibody response examination (principal); E11.9 Type 2 diabetes mellitus without complications; E66.811 Obesity, class 1; M13.0 Polyarthritis, unspecified; E04.2 Nontoxic multinodular goiter; E21.3 Hyperparathyroidism, unspecified; I10 Essential (primary) hypertension; Z13.21 Encounter for screening for nutritional disorder
CPT/HCPCS: 36415; 80053; 81001; 82306; 83970; 84439; 84443; 85025; 85652; 86038; 86039; 86141

== ENCOUNTER 2025-07-07 15:11 | Outpatient (AMB) | payer MEDICARE, SELFPAY ==
--- NOTE | 2025-07-07 15:19 | A.OFFVIS_ITS ---
Vital Signs 07/07/25 15:23 Height 5 ft 6 in Weight 189 lb 9.561 oz BMI 30.6 BP 172/106 H Blood Pressure Location Rt brachial Position Sitting Pulse 78 Pulse Source Pulse Oximeter Intake Visit Reasons: Nontoxic multinodular goiter Intake Note: NEW Patient presents today to establish care for Nontoxic single thyroid nodule: Stopper Setter Required: No Accompanied by: Self / Same As Patient Allergies ketorolac Allergy (Unknown, Verified 07/07/25 15:24) rash From Toradol Allergy (Unknown, Uncoded 07/07/25 15:24) HIVES HPI Comments Details: 45 years old female with past medical history of type 2 diabetes, hypertension, history of hyperparathyroidism, obesity, vitamin-D deficiency and multinodular goiter. Per chart review patient underwent FNA of her right upper, right middle and lower middle nodules all we benign cytology. Per review of records patient was previously started for possible hyperparathyroidism, but evaluation was not completed. She is referred to us by primary care for new/acute symptoms concerning for hyperthyroidism. She first started experiencing symptoms of hyperthyroidism about two years ago, occurring on and off, but for the past month, the symptoms have been daily and constant. The patient reports experiencing a rapid heart rate, difficulty concentrating, and a feeling of being loopy. She experiences flare-ups that affect her eyes, sometimes making them so swollen that she cannot eat for up to two weeks and must wear glasses. She also reports headaches, insomnia, shakiness, and fidgeting. She states her entire body has gone haywire in the last month. Other symptoms include decreased libido, vaginal dryness, and brittle, cakey nails. She has lost 98 pounds in approximately eight months, going from 283 pounds in November to 189 pounds currently. This weight loss was unintentional, as she struggles to finish meals due to a fast heart rate. She also reports feeling depressed and crying more due to frustration with her symptoms. She describes feeling cold despite her house being hot. Her heart rate sometimes accelerates significantly when she lies down or turns on her side, causing fear and prompting her to get up. Thyroid Review of Systems: Hyperthyroid: Reports sweating, eye bulging, rapid heart rate, insomnia, s hakiness, fidgeting. Denies pruritus, weight loss (reports significant weight loss) anxiety. Hypothyroid: Reports fatigue, cold intolerance (reports feeling cold). ?ENT/Neck: Reports difficulty swallowing pills and water, describing it as feeling stuck. Reports her neck swells, ears ring, and her eyes swell during flare-ups. Reports pain that radiates to her ear. Denies changes in her voice. No dysphagia (reports difficulty swallowing but no dysphagia). No globus sensation. HEENT: Eyes: Reports eye bulging and swelling during flare-ups. Denies diplopia or blurred vision. Approximately 40 mins into the visit, while reviewing some of her sumptoms and trying to clarify further in regards to her eye symptoms, patient expressed that I was unable to help her and that she did not want to waste my time and got up and left. Evaluation was not completed because of this. Physical exam Limited due to patient not completed the evaluation There was not obvious evidence of proptosis/swelling of her eyes Labs 07/04/2025 Creatinine 0.95 GFR more than 60 Calcium 9.3 Vitamin-D 20.5 PTH 131.4 TSH 1.03+ free T4 0.98 Imaging DEXA 09/06/2020 FINDINGS: AP SPINE L1-L4: BMD 1.266 g/cm2, T-score 0.7, Z-score -0.4, Z-score within expected range for age. LEFT FEMUR, NECK: BMD 0.942 g/cm2, T-score -0.7, Z-score -1.0, Z-score within expected range for age. LEFT FEMUR, TOTAL: BMD 1.141 g/cm2, T-score 1.1, Z-score 0.5, Z-score within expected range for age. LEFT FOREARM RADIUS 33%: BMD 0.910 g/cm2, T-score 0.4, Z-score 0.4, Z-score within expected range for age. Thyroid US 01/04/2020: Right Thyroid Lobe: 5.4 x 2.3 x 2.6 cm, volume 16.9 mL. Parenchyma: The gland echotexture is homogeneous. Thyroid vascularity is normal. Left Thyroid Lobe: 4.9 x 1.9 x 1.8 cm, volume 8.8 mL. Parenchyma: The gland echotexture is homogeneous. Thyroid vascularity is normal. Isthmus: 0.4 cm in maximum AP dimension. RIGHT THYROID LOBE: There are 2 nodules seen. 1. Location: Upper pole. Size: 1.3 x 0.9 x 1.1 cm. Nodule characteristics: Hypoechoic, smoothly marginated with intranodular flow. 2. Location: Midpole. Size: 2.3 x 1.7 x 2.0 cm. Nodule characteristics: Hypoechoic, smoothly marginated with no intranodular flow. ISTHMUS: No nodules. LEFT THYROID LOBE: There are 2 nodules seen. 1. Location: Mid pole. Size: 1.7 x 1.2 x 1.5 cm. Nodule characteristics: Hypoechoic to isoechoic, smooth margins with no intranodular flow. 2. Location: Mid pole. Size: 0.8 x 0.5 x 0.9 cm. Nodule characteristics: Hypoechoic, smoothly marginated with no intranodular flow. NODES: No lymphadenopathy is seen in the tissue surrounding the thyroid gland. ADDITIONAL FINDINGS: There is a hypoechoic area seen posterior to the right lobe measuring 1.1 x 0.9 x 1.2 cm question small parathyroid adenoma. [facility] Medical History GERD (gastroesophageal reflux disease) BMI 35.0-35.9,adult Adenopathy Obesity Vitamin D deficiency Multinodular thyroid Hyperparathyroidism Surgical History History of hysteroscopy Hx laparoscopic cholecystectomy Hx of section Hx of tubal ligation Family History Father AIDS Arthritis CVD (cardiovascular disease) Hypertension Stroke Asthma Mother Diabetes Arthritis Hypertension Obesity Heart attack CVD (cardiovascular disease) Asthma Chronic mental illness Adult hypothyroidism Maternal Aunt Breast cancer Maternal Aunt Breast cancer Son No problems noted. Daughter No problems noted. Brother No problems noted. Social History Housing: House Are you a primary outdoor emergency care technician to a significant other at home: No Do you presently have visiting nurse or other home services: No Alcohol intake: never Patient Tobacco Use Status: Former Tobacco user Cigarettes Per Day: 1 Years Smoked: 3 e-Cigarette/Vaping Use: Never Used Advance Directives Date on File: 04/17/21 service: No Current occupational status: unemployed Current occupation: right hand dominant Sexual orientation: Straight/Heterosexual Gender identity: Female Cognitive needs: No Hearing needs: No Vision needs: No Female Reproductive History Menstrual Age of Menarche: 11 Physical Exam Vital Signs: Last Vital Signs Pulse 78 07/07/25 15:23 BP 172/106 H 07/07/25 15:23 BMI result Body Mass Index 30.6 Assessment & Plan Assessment & Plan (1) Multinodular thyroid: Code(s): E04.2 - Nontoxic multinodular goiter Category: Medical (2) Hyperparathyroidism: Code(s): E21.3 - Hyperparathyroidism, unspecified Category: Medical Plan Assessment and plan Patient report hyperthyroid symptoms (palpitations, weight loss, insomnia, eye symptoms, tremulousness), but also some symptoms that are less typical/more consistent with hypothyroidism (feeling cold, depressive symptoms, brittle nails, vaginal dryness). Her reported intermittent eye swelling, that resolved spontaneously and is intermittent, and the lack of obvious evidence of proptosis observed during the visit, Ms. Thyroid eye disease unlikely. She reported tachycardia/palpitation, but her pulse rate is in the 70s, she does have hypotension. Her biochemical evaluation also is not consistent with a hyperthyroid symptoms. Although it is not completely unreasonable to repeat thyroid function tests, TSH is overall a reliable test, and she is not taking any medications (Biotin) that would interfere with the assay, making this TSH result reliable in my opinion. Unfortunately patient left before we have completed the evaluation and make a final decision in in regards to management. Coding Level of Care Code New Pt Level 4 (08982) Diagnoses Multinodular thyroid E04.2 Hyperparathyroidism E21.3 Comment
[2025-07-07 15:23] VITALS: BP 172/106; PULSE 78; BMI 30.6
--- OUTSIDE RECORDS SUMMARY | 2025-07-07 17:36 | XMS_ITS | Clinical Summary ---
Author Organization [employer] Address [address] [place] [address] Care Team Providers Care Engineering Operations Leader Name Role Phone Unavailable Primary Care Provider [...] Most Recently Relevant to Health Maintenance Insurance [facility] MEDICAID STAND ADULT
== END 2025-07-07 16:02 | disposition home or self-care (01) ==
LOC: HO.ENCR 15:11
PROVIDERS: PCP Physician Assistant; Visit Provider Student in an Organized Health Care Education/Training Program
DX: E04.2 Nontoxic multinodular goiter (principal); E21.3 Hyperparathyroidism, unspecified
CPT/HCPCS: 99203

== ENCOUNTER → 2025-07-07 15:11 | Outpatient (BNVA) | payer MEDICARE, SELFPAY | PROVIDERS: PCP Physician Assistant; Visit Provider Student in an Organized Health Care Education/Training Program | DX: E04.2 Nontoxic multinodular goiter (principal); E21.3 Hyperparathyroidism, unspecified | CPT/HCPCS: 99202 ==

== ENCOUNTER 2025-10-24 14:02 | Outpatient (AMB) | payer MEDICARE, SELFPAY ==
--- NOTE | 2025-10-24 14:10 | MHC.PC.OV ---
Vital Signs 10/24/25 14:11 Height 5 ft 6 in Weight 170 lb BMI 27.4 BP 96/80 Blood Pressure Location Lt brachial Position Sitting Respiration 18 Temp 98.5 F Temp Source Temporal Artery Scan Comment unable to O2 or HR due to fake nails Intake Visit Reasons: multiple complaints Intake Note: lack of sleep, eyes puffy and red and swollen off and on with facial drooping, [place] rapid heart rate two times. Pain in fingers with stiffness. Trouble swallowing anything larger than rice. Loosing balance. Blind Teacher Required: No Accompanied by: Spouse Allergies ketorolac Allergy (Unknown, Verified 10/24/25 14:34) rash From Toradol Allergy (Unknown, Uncoded 10/24/25 14:34) HIVES Medication List - Last Reconciled 10/24/25 by Rainer Portillo PA-C albuterol sulfate 90 mcg/actuation (Ventolin HFA) 2 puffs inhalation Q4-6H PRN carvedilol 3.125 mg PO BID flash glucose scanning reader ([employer]Style Magdalena 2 [place]) As directed flash glucose sensor ([employer] Magdalena 2 Sensor kit) As directed linaclotide (Linzess) 145 mcg PO DAILY 30 days lisinopril-hydrochlorothiazide 10-12.5 mg 1 tab PO DAILY 30 days metoprolol succinate ER 50 mg PO DAILY 30 days ondansetron HCl 4 mg PO Q8H PRN riboflavin (vitamin B2) 400 mg PO DAILY sumatriptan succinate take 1 tab at onset of headache; if no relief may repeat 1 tab after at least 2 hrs; max = 4 tabs/24 hr PO tizanidine 4 mg PO Q8H PRN tramadol 50 mg PO BID PRN 30 days Tobacco use date assessed: 07/03/25 Dental Screening Dental Screen Date: 07/03/25 HPI multiple complaints HPI Details The patient is a 45 year old female presenting for evaluation of multiple ongoing symptoms. She has been feeling unwell for approximately two years. She reports episodes of rapid heart rate, sometimes associated with a feeling of her heart in her mouth, vertigo, and near-syncope. These episodes can also involve burning and glvl-pku-dnbaarp sensations in her legs and hands, and she has experienced incidents of facial drooping. A previously scheduled stress test was canceled twice due to lack of technicians, and a Holter monitor order was not fulfilled due to logistical issues. The patient has recurrent flare-ups of a periorbital rash every 1-2 weeks, which she describes as starting with a popping sensation and swelling, then becoming red, flaky, and peeling. She has tried hydrocortisone, Zyrtec, and various eye drops without relief. She also has significant hair loss over the last seven months, a rash on her stomach and under her breasts, and psoriasis on her scalp. Her mother has a history of psoriasis and lupus. Previous workup revealed a weakly positive ALLISON. She reports progressively worsening dysphagia, making it difficult to swallow solids like rice and meat, which has resulted in choking. This is associated with throat swelling and leads to cravings for cold items like ice cream. She saw an claims coordinator regarding her thyroid, but the consultation was unsatisfactory and no examination was performed. The patient experiences severe cramping causing her hands to lock, with pain radiating up her arm and visible bulging veins. These symptoms are now starting to affect her thumbs. She has a history of being diagnosed with carpal tunnel syndrome and bursitis years ago. Associated symptoms include daily headaches with photophobia, insomnia (sleeping only 3 hours per night despite taking tizanidine), decreased libido, and night sweats. She has also had symptoms of a urinary tract infection with burning for the past four days. Past medical history is significant for a partial hysterectomy with ovarian conservation, hypertension, and type 2 diabetes (past A1c of 8.2), which is now in remission following significant weight loss. She achieved weight loss with injectable medication (Zepbound) but stopped two months ago due to the high cost ($950/month). She reports inconsistent adherence to lisinopril due to symptoms of hypotension, such as feeling like she will pass out if she does not eat immediately after taking it. Laboratory Tests 09/15/23 05/05/24 05/05/24 14:52 13:15 13:18 RBC 4.68 Hgb 14.4 Creatinine 0.80 Random Glucose 124 H Fasting Glucose 101 H 25-OH Vitamin D To renetta 21.4 L TSH Free T4 PTH Intact 118.1 H Ur Leukocyte Marian ase Moderate (2+) H ALLISON Screen ALLISON Titer 2 ALLISON Pattern 2 Tiss Transglutamin IgA <1.0 07/04/25 10:44 RBC Hgb Creatinine 0.95 Random Glucose Fasting Glucose 25-OH Vitamin D To renetta 20.5 L TSH 1.03 Free T4 0.98 PTH Intact 131.4 H Ur Leukocyte Marian ase ALLISON Screen POSITIVE A ALLISON Titer 2 1:40 H ALLISON Pattern 2 Nuclear, Speckled A Tiss Transglutamin IgA PFSH Medical History GERD (gastroesophageal reflux disease) BMI 35.0-35.9,adult Adenopathy Obesity Vitamin D deficiency Multinodular thyroid Hyperparathyroidism Surgical History History of hysteroscopy Hx laparoscopic cholecystectomy Hx of section Hx of tubal ligation Family History Father AIDS Arthritis CVD (cardiovascular disease) Hypertension Stroke Asthma Mother Diabetes Arthritis Hypertension Obesity Heart attack CVD (cardiovascular disease) Asthma Chronic mental illness Adult hypothyroidism Maternal Aunt Breast cancer Maternal Aunt Breast cancer Son No problems noted. Daughter No problems noted. Brother No problems noted. Social History Housing: House Are you a primary team primary care physician to a significant other at home: No Do you presently have visiting nurse or other home services: No Alcohol intake: never Patient Tobacco Use Status: Former Tobacco user Cigarettes Per Day: 1 Years Smoked: 3 e-Cigarette/Vaping Use: Never Used Advance Directives Date on File: 04/17/21 service: No Current occupational status: unemployed Current occupation: right hand dominant Sexual orientation: Straight/Heterosexual Gender identity: Female Cognitive needs: No Hearing needs: No Vision needs: No Female Reproductive History Menstrual Age of Menarche: 11 Questionnaire Thrive Questionnaire Date Thrive assessed: 07/03/25 I am a: Patient What is your living situation today?: I have a steady place to live Within the past 12 months, did the food you bought not last and you didn't have the money to get more?: Never true Within the past 12 months, did you worry whether your food would run out before you got money to buy more?: Never true Do you have trouble paying for medicines?: I choose not to answer this question Do you have trouble getting transportation to medical appointments?: Yes Do you have trouble paying your heating and electricity bill?: No Do you have trouble taking care of your child, family member or friend?: No Do you have trouble with day-to-day activities such as bathing, preparing meals, shopping, managing finances, etc.?: No Are you currently unemployed and looking for a job?: No Are you interested in more education?: I choose not to answer this question Currently or been in a relationship where the following occur: I choose not to answer THRIVE Score: 1 KELLY-7 AMB Questionnaire KELLY-7 Date KELLY - 7 assessed: 07/03/25 Source: Developed by Drs. Néstor Arias, Salima Magdaleno, Cm Patel and colleagues, with an educational robert from [employer]. Review of Systems Const Reports headache(s) Eyes Reports irritation, Reports itchy eyes, Denies loss of vision and Reports photophobia ENT Reports vertigo, Denies dizziness, Reports headache(s) and Denies sore throat Card Denies chest pain, Denies leg edema, Denies lightheadedness and Reports palpitations Resp Denies cough, Denies hemoptysis and Denies wheezing GI Denies abdominal pain, Denies melena, Denies constipation, Denies diarrhea and Denies vomiting Denies urinary frequency, Denies dysuria and Reports urinary urgency Musc Reports arthralgias, Denies joint swelling, Denies numbness and Denies tingling Neuro Denies Abnormal speech present, Denies behavioral changes, Reports vertigo, Denies dizziness, Reports headache(s), Denies loss of vision, Denies memory loss, Denies numbness and Denies tingling Psych Denies anxiety, Denies behavioral changes, Denies depression, Denies memory loss and Denies panic attacks Endo Reports palpitations Ye/Lymph Denies easy bleeding and Denies easy bruising Aller/Immun Reports itchy eyes and Denies wheezing Physical exam (Primary Care) Vital Signs: Last Vital Signs Temp 98.5 F 10/24/25 14:11 Resp 18 10/24/25 14:11 BP 96/80 10/24/25 14:11 BMI result Body Mass Index 27.4 Tobacco/Smoking Status: Tobacco use Status Tobacco use date assessed 07/03/25 10/24/25 14:25 Patient Tobacco Use Status Former Tobacco user 10/24/25 14:25 e-Cigarette/Vaping Use Never Used 10/24/25 14:25 Thrive Assessment: Date of Thrive Assessment Date Thrive assessed 07/03/25 10/24/25 14:25 Currently or been in a relationship where the following occur: I choose not to answer Const General: healthy appearing, no acute distress, alert and awake Nutritional Appearance: well nourished Orientation/consciousness: oriented to person, oriented to place and oriented to time HENMT Other: SCALP WITH DRY SCALY SKIN NOTED, HAIR LOSS AND THINNING PARTICULARLY NOTED Ears: TM's normal bilaterally General nose exam: Normal nasal mucous membranes and turbinates present Eyes Conjunctivae: conjunctivae normal Sclerae: sclerae normal Pupils: Equal, round and reactive pupils present Direct Ophthalmoscopy: photophobia Eyes/upper lids images:  1. NOTED PERIORBITAL EDEMA AND DERMATITIS BILATERALLY Neck Neck: Yes no lymphadenopathy and Yes no JVD Thyroid: Thyroid normal Carotids: no bruits Resp Effort & Inspection: normal respiratory effort and not tachypneic Auscultation: no crackles, no rales, no rhonchi and no wheezes Cardio Rate: regular rate Rhythm: regular rhythm Heart sounds: no murmurs and normal S1 and S2 GI Palpation (GI): Soft to palpation, nontender, no hepatomegaly and no splenomegaly Auscultation: normal bowel sounds Skin General skin exam: no rashes or lesions noted and dry skin Neuro General: oriented to person, oriented to place and oriented to time Cranial nerves: Yes Equal, round and reactive pupils present Speech: No Abnormal speech present Gait exam (Neuro): Normal gait present Motor exam (neuro): no tremor noted Extrem Right upper extremity: full ROM Left upper extremity: full ROM Right lower extremity: full ROM; no edema Left lower extremity: full ROM; no edema Psych Mental Status: mental status grossly normal Speech and movement: Normal speech and movement present Affect: normal affect Attitude: cooperative Thought process: Normal thought process present Coding Level of Care Code Est Pt Level 4 (16742) Diagnoses Psoriasis L40.9 Type 2 diabetes mellitus with hyperglycemia, without long-term current use of insulin E11.65 Diabetes mellitus complication status: with hyperglycemia Diabetes mellitus joint terminal attack controller insulin use: without senior care use Dysphagia, unspecified type R13.10 Dysphagia type: unspecified Positive ALLISON (antinuclear antibody) R76.8 Acute cystitis without hematuria N30.00 Urinary tract infection type: acute cystitis Hematuria presence: without hematuria Paresthesia of hand, bilateral R20.2 Hypertension, unspecified type I10 Hypertension type: unspecified MDD (major depressive disorder), recurrent episode, moderate F33.1 Heart palpitations R00.2 Assessment & Plan Assessment & Plan (1) Psoriasis: Code(s): L40.9 - Psoriasis, unspecified Category: Medical Plan: The patient's constellation of symptoms, including periorbital dermatitis, hair loss, and a positive ALLISON, is suspicious for an underlying inflammatory or autoimmune condition, possibly psoriasis. A referral to Dermatology will be placed. In the interim, a prednisone taper will be prescribed to assess for an inflammatory response, along with a topical cream for the face and clobetasol shampoo for the scalp. The patient was advised to avoid using makeup. (2) DMII (diabetes mellitus, type 2): Code(s): E11.9 - Type 2 diabetes mellitus without complications Category: Medical Qualifiers: Diabetes mellitus complication status: with hyperglycemia Diabetes mellitus joint terminal attack controller insulin use: without joint terminal attack controller use Qualified Code(s): E11.65 - Type 2 diabetes mellitus with hyperglycemia Plan: Patient has a history of type 2 diabetes and was on metformin. Was able to manage her diabetes with lifestyle and dietary modifications. She was previously on GLP 1 therapy and has lost significant amount of weight though stopped GLP 1 therapy for the time being due to being much too expensive without insurance coverage. --> Regarding weight management, an attempt will be made to obtain prior authorization for Mounjaro 10 mg by using her past diagnosis of type 2 diabetes and current diagnosis of hypertension. (3) Dysphagia: Code(s): R13.10 - Dysphagia, unspecified Category: Medical Qualifiers: Dysphagia type: unspecified Qualified Code(s): R13.10 - Dysphagia, unspecified Plan: To evaluate the worsening dysphagia, an order for a barium swallow study will be placed to rule out a structural abnormality. (4) Positive ALLISON (antinuclear antibody): Code(s): R76.8 - Other specified abnormal immunological findings in serum Category: Medical Plan: As above patient has a positive ALLISON 1:40 and also has a strong family history of lupus and psoriasis. With her skin manifestations it seems she may have an autoimmune disorder. Again will refer to Dermatology for treatment of her psoriasis. Will consider another referral to rheumatology for further evaluation of a possible autoimmune disorder. (5) UTI (urinary tract infection): Code(s): N39.0 - Urinary tract infection, site not specified Category: Medical Qualifiers: Urinary tract infection type: acute cystitis Hematuria presence: without hematuria Qualified Code(s): N30.00 - Acute cystitis without hematuria Plan: Will supply patient with a antibiotic for possible UTI. (6) Paresthesia of hand, bilateral: Code(s): R20.2 - Paresthesia of skin Category: Medical Plan: To address the worsening hand pain and cramping consistent with carpal tunnel syndrome, a nerve conduction study of the upper extremities will be ordered. The patient is advised to wear a wrist splint at night. Prescriptions for tramadol and tizanidine will be refilled. (7) HTN (hypertension): Code(s): I10 - Essential (primary) hypertension Category: Medical Qualifiers: Hypertension type: unspecified Qualified Code(s): I10 - Essential (primary) hypertension Plan: Patient's blood pressure pains on the low side. Advised patient to hold off on using lisinopril hydrochlorothiazide for now as she has lost significant amount of weight on a GLP 1 over last few months.. Advised her to continue metoprolol for her tachycardia and heart palpitations. (8) MDD (major depressive disorder), recurrent episode, moderate: Code(s): F33.1 - Major depressive disorder, recurrent, moderate Category: Medical Plan: Patient does suffer from depression though she feels her depression is directly attributed to her medical conditions that cause her to feel awful. She is not interested in mental health therapy at this time or mental health medications. (9) Heart palpitations: Code(s): R00.2 - Palpitations Category: Medical Plan: For the evaluation of tachycardia and palpitations, an order for a Holter monitor will be placed. Given the patient's significant weight loss and resultant lower blood pressure, she is advised to discontinue lisinopril/hydrochlorothiazide and continue taking metoprolol for heart rate control. Orders: Orders Estrogen 10/24/25 R68.82 - Decreased libido Follicle Stimulating Hormone 10/24/25 R68.82 - Decreased libido FL barium swallow 10/24/25 R13.10 - Dysphagia, unspecified NE electromyogram (EMG) 10/24/25 R20.2 - Paresthesia of skin NE nerve conduction velocity 10/24/25 R20.2 - Paresthesia of skin ECG 5 day holter monitor 10/24/25 R00.2 - Palpitations Hemoglobin A1c 10/24/25 E11.9 - Type 2 diabetes mellitus without complications Referrals Dermatology Referral L40.9 - Psoriasis, unspecified Medications: New tirzepatide (Mounjaro) 10 mg (0.5 mL) subcut QWEEK 2 mL 1RF 4 weeks E11.65 - Type 2 diabetes mellitus with hyperglycemia, I10 - Essential (primary) hypertension prednisone Take 3 tablets x3 days, 2 tablets x3 days, 1 tablet x3 days 10 mg PO DIRECTED 18 tabs 0RF 9 days L40.9 - Psoriasis, unspecified nitrofurantoin macrocrystal must administer with a meal/food 100 mg PO BID 10 caps 0RF 5 days N39.0 - Urinary tract infection, site not specified desonide 0.05% 1 appl topical DAILY 60 grams 0RF 30 days L40.9 - Psoriasis, unspecified tirzepatide (Mounjaro) 10 mg (0.5 mL) subcut QWEEK 4 weeks 2 mL 1RF E11.65 - Type 2 diabetes mellitus with hyperglycemia, I10 - Essential (primary) hypertension clobetasol 0.05% 1 appl topical BEDTIME 118 mL 0RF 4 weeks L40.9 - Psoriasis, unspecified Refilled tramadol 50 mg PO BID PRN 60 tabs 1RF pain 30 days M54.2 - Cervicalgia tizanidine 4 mg PO Q8H PRN 30 tabs 1RF muscle spasticity R00.2 - Palpitations On Hold lisinopril-hydrochlorothiazide 10-12.5 mg Hold Comment: Doctor's Order 1 tab PO DAILY 30 days 30 tabs 3RF E06.9 - Thyroiditis, unspecified, I10 - Essential (primary) hypertension
[2025-10-24 14:11] VITALS: BP 96/80; RESP 18; TEMP 36.9; BMI 27.4
--- OUTSIDE RECORDS SUMMARY | 2025-10-24 17:51 | XMS_ITS | Clinical Summary ---
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
== END 2025-10-24 15:21 | disposition home or self-care (01) ==
LOC: HO.HMCH 14:03
PROVIDERS: PCP Physician Assistant; Visit Provider Physician Assistant
DX: E11.65 Type 2 diabetes mellitus with hyperglycemia (principal); L40.9 Psoriasis, unspecified; R13.10 Dysphagia, unspecified; R76.89 Other specified abnormal immunological findings in serum; N30.00 Acute cystitis without hematuria; R20.2 Paresthesia of skin; I10 Essential (primary) hypertension; R00.2 Palpitations

== ENCOUNTER → 2025-10-24 14:02 | Outpatient (BNVA) | payer MEDICARE, SELFPAY | PROVIDERS: PCP Physician Assistant; Visit Provider Physician Assistant | DX: E11.65 Type 2 diabetes mellitus with hyperglycemia (principal); L40.9 Psoriasis, unspecified; R13.10 Dysphagia, unspecified; R76.89 Other specified abnormal immunological findings in serum; N30.00 Acute cystitis without hematuria; R20.2 Paresthesia of skin; I10 Essential (primary) hypertension; F33.1 Major depressive disorder, recurrent, moderate; R00.2 Palpitations | CPT/HCPCS: 99212 ==